=== PATIENT | female | born 1950 | race Hispanic/Latino ===

== ENCOUNTER 2022-05-24 08:24 | Inpatient (IN) | payer OTHER ==
[2022-05-24] MEDS ORDERED: SODIUM CHLORIDE 0.9% 1000 ML IV SOLN IV ONE (09:14)
[2022-05-24] MEDS ORDERED: VANCOMYCIN 1,750 MG in SODIUM CHLORIDE 0.9% 500 ML 500 ML IV ONE (09:17)
[2022-05-24] MEDS ORDERED: CEFEPIME/NS 2 GM/100 ML 2 GM/100 ML BAG IV ONE (09:17)
--- NOTE | 2022-05-24 09:43 | XRay Report ---
CHEST 1 VIEW 05/24/2022 8:37 AM INDICATION / CLINICAL INFORMATION: sepsis, syncope. COMPARISON: None available. FINDINGS: SUPPORT DEVICES: None. HEART / MEDIASTINUM: No significant abnormality. LUNGS / PLEURA: No significant pulmonary or pleural abnormality. No pneumothorax. ADDITIONAL FINDINGS: No significant additional findings. IMPRESSION: 1. No acute findings. Signer Name: Rafa Reaves Jr, MD Signed: 05/24/2022 9:38 AM Workstation Name: [id number]
[2022-05-24] MEDS ORDERED: VANCOMYCIN PHARMACY TO DOSE IV SCH ×2 (10:00→22:00)
[2022-05-24] MEDS ORDERED: VANCOMYCIN 2,000 MG in SODIUM CHLORIDE 0.9% 500 ML 500 ML IV ONE (10:00)
[2022-05-24 10:43] LABS: ABG Base Excess -10.3 mmol/L (-2.0-3.0); ABG HCO3 13.3 mmol/L (20.0-26.0); ABG Methemoglobin 0.5 % (0.0-1.5); ABG Oxygen Saturation 96.9 % (95.0-99.0); ABG PCO2 24.9 mm Hg; ABG PH 7.346 pH Units (7.350-7.450); ABG PO2 88.5 mm Hg (80.0-90.0)
[2022-05-24 11:33] LABS: Creatine Kinase MB 14.5 ng/mL (0.0-4.0)
[2022-05-24 11:34] LABS: Albumin 2.7 g/dL (3.9-5); Calcium 10.2 mg/dL (8.4-10.2)
[2022-05-24 11:37] LABS: Hematocrit 40.6 % (30.3-42.9); Hemoglobin 13.5 gm/dl (10.1-14.3); Mean Corpuscular HGB Conc 33 % (30-34); Mean Corpuscular Volume 98 fl (79-97); Platelet Count 187 K/mm3 (140-440); Red Blood Count 4.13 M/mm3 (3.65-5.03); Red Cell Distribution Width 13.6 % (13.2-15.2)
[2022-05-24 11:44] LABS: Free T4 (Free Thyroxine) 1.09 ng/dL (0.76-1.46)
[2022-05-24 11:45] LABS: INR 1.31 (0.87-1.13)
[2022-05-24] MEDS ORDERED: LORazepam 2 MG/ML VIAL IV ONE (12:16)
[2022-05-24 12:33] LABS: Band Neutrophils # (Manual) 0.2 K/mm3; Basophils % (Manual) 0 % (0.0-1.8); Total Cells Counted 100
[2022-05-24 12:34] LABS: Platelet Estimate Consistent w Auto
[2022-05-24 12:40] LABS: Color,Urine Yellow (Yellow)
[2022-05-24] MEDS ORDERED: SODIUM CHLORIDE 0.9% 1000 ML 1,000 ML IV ONE (13:27)
[2022-05-24 13:44] LABS: Amorphous Crystals,Urine 3+
--- NOTE | 2022-05-24 13:45 | Emergency Department Report ---
ED Altered Mental Status HPI - General Chief Complaint: Weakness Stated Complaint: LOW HR/FECAL INCONTINENCE Time Seen by Provider: 05/24/22 09:04 Source: patient, EMS Mode of arrival: Stretcher Limitations: Altered Mental Status - History of Present Illness Initial Comments: 72-year-old female with unknown past medical history presents from the residential with alteration in mental status. Patient was found soiled with feces, altered, and with low heart rate in the residential cell. Patient is altered and repeats the same thing when asked multiple questions. She is unwilling to follow commands. She appears to be having pain with movement. No previous medical record available for review - Related Data Allergies Allergy/AdvReac Type Severity Reaction Status Date / Time Sulfa (Sulfonamide AdvReac Unknown Verified 05/24/22 08:32 Antibiotics) ED Review of Systems ROS: Stated complaint: LOW HR/FECAL INCONTINENCE Other details as noted in HPI Comment: Unobtainable due to pts medical conditions ED Past Medical Hx - Past Medical History Additional medical history: UNKNOWN - Social History Smoking Status: Unknown if ever smoked ED Physical Exam - General Limitations: No Limitations - Other Other exam information: General: No acute distress Head: Atraumatic Eyes: normal appearance ENT: Moist mucous membranes Neck: Normal appearance, no midline tenderness Chest: Clear to auscultation bilaterally CV: Bradycardic regular rhythm Abdomen: Soft, normal bowel sounds, nontender, nondistended, no rebound or guarding Back: Normal inspection Extremity: Normal inspection, full range of motion Neuro: Altered, repeating the same thing when questioning. Does not follow commands. Psych: Agitation, altered Skin: Significant erythema to chest wall, redness, warmth involving bilateral breast ED Course Vital Signs 05/24/22 05/24/22 05/24/22 08:28 08:59 09:05 Temperature Pulse Rate 55 L Respiratory 20 15 Rate Blood Pressure Blood Pressure 130/90 [Left] O2 Sat by Pulse 80 L 92 Oximetry 05/24/22 05/24/22 05/24/22 09:15 09:31 09:46 Temperature Pulse Rate 54 L 47 L 52 L Respiratory 14 10 L 17 Rate Blood Pressure Blood Pressure [Left] O2 Sat by Pulse 96 99 100 Oximetry 05/24/22 05/24/22 05/24/22 09:57 10:00 10:16 Temperature 92.5 F L Pulse Rate 54 L 55 L Respiratory 17 15 Rate Blood Pressure 138/111 Blood Pressure [Left] O2 Sat by Pulse 94 87 Oximetry 05/24/22 05/24/22 05/24/22 10:30 10:46 11:00 Temperature Pulse Rate 55 L 58 L 57 L Respiratory 19 15 17 Rate Blood Pressure 123/106 123/106 123/106 Blood Pressure [Left] O2 Sat by Pulse 90 92 86 Oximetry 05/24/22 05/24/22 05/24/22 11:16 11:30 11:41 Temperature Pulse Rate 56 L 54 L Respiratory 21 13 Rate Blood Pressure 128/95 128/95 Blood Pressure 113/93 [Left] O2 Sat by Pulse 94 97 Oximetry 05/24/22 05/24/22 05/24/22 11:45 12:01 12:15 Temperature Pulse Rate 55 L 59 L 58 L Respiratory 15 12 17 Rate Blood Pressure 123/106 128/95 128/95 Blood Pressure [Left] O2 Sat by Pulse 98 96 94 Oximetry 05/24/22 05/24/22 05/24/22 12:31 12:45 13:01 Temperature Pulse Rate 61 53 L 63 Respiratory 18 21 21 Rate Blood Pressure 128/95 128/95 128/95 Blood Pressure [Left] O2 Sat by Pulse 93 97 97 Oximetry 05/24/22 05/24/22 05/24/22 13:08 13:15 13:31 Temperature 93.2 F L Pulse Rate 63 63 Respiratory 13 14 Rate Blood Pressure 128/95 128/95 Blood Pressure [Left] O2 Sat by Pulse 97 98 Oximetry 05/24/22 05/24/22 05/24/22 13:46 14:00 14:15 Temperature Pulse Rate 64 55 L 59 L Respiratory 13 19 Rate Blood Pressure 113/93 128/95 128/95 Blood Pressure [Left] O2 Sat by Pulse 98 97 Oximetry 05/24/22 14:31 Temperature Pulse Rate 58 L Respiratory 18 Rate Blood Pressure 113/93 Blood Pressure [Left] O2 Sat by Pulse 94 Oximetry - Consultations Consultation #1: 05/24/22 13:[address] May called, consult placed - Central Line Placement Right Femoral Consent Obtained: emergent situation Time Out Performed: Yes Patient Placed on Monitor/Pulse Ox: Yes Prep: mask, gown, gloves Central Line Prep: Chlorhexidine scrub Local Anesthesia Used: Lidocaine 1% Amount of Anesthesia Used (mls): 5 Central Line Lumen Inserted: triple Reason for Insertion: Emergency Venous Access Bloods Obtained for Lab: No Central Line Position: good blood return, sutured in place with nyl Dressing Applied: Tegaderm Patient Tolerated Procedure: no complications Complications: none - Lab Data Result diagrams: 05/24/22 09:05/24/22 09:26 Lab Results 05/24/22 05/24/22 05/24/22 Range/Units 09: 09: 09:26 WBC 21.4 H (4.5-11.0) K/mm3 RBC 4.13 (3.65-5.03) M/mm3 Hgb 13.5 (10.1-14.3) gm/dl Hct 40.6 (30.3-42.9) % MCV 98 H (79-97) fl MCH 33 H (28-32) pg MCHC 33 (30-34) % RDW 13.6 (13.2-15.2) % Plt Count 187 (140-440) K/mm3 Add Manual Diff Complete Total Counted 100 Seg Neutrophils % [employer] Seg Neuts % (Manual) 91.0 H (40.0-70.0) % Band Neutrophils % 1.0 % Lymphocytes % (Manual) 1.0 L (13.4-35.0) % Reactive Lymphs % (Man) 1.0 % Monocytes % (Manual) 5.0 (0.0-7.3) % Eosinophils % (Manual) 1.0 (0.0-4.3) % Basophils % (Manual) 0 (0.0-1.8) % Metamyelocytes % 0 % Myelocytes % 0 % Promyelocytes % 0 % Blast Cells % 0 % Nucleated RBC % Not Reportable Seg Neutrophils # Man 19.5 H (1.8-7.7) K/mm3 Band Neutrophils # 0.2 K/mm3 Lymphocytes # (Manual) 0.2 L (1.2-5.4) K/mm3 Abs React Lymphs (Man) 0.2 K/mm3 Monocytes # (Manual) 1.1 H (0.0-0.8) K/mm3 Eosinophils # (Manual) 0.2 (0.0-0.4) K/mm3 Basophils # (Manual) 0.0 (0.0-0.1) K/mm3 Metamyelocytes # 0.0 K/mm3 Myelocytes # 0.0 K/mm3 Promyelocytes # 0.0 K/mm3 Blast Cells # 0.0 K/mm3 WBC Morphology Not Reportable Hypersegmented Neuts Not Reportable Hyposegmented Neuts Not Reportable Hypogranular Neuts Not Reportable Smudge Cells Not Reportable Toxic Granulation Not Reportable Toxic Vacuolation Not Reportable Dohle Bodies Not Reportable Pelger-Huet Anomaly Not Reportable Raphael Rods Not Reportable Platelet Estimate Consistent w auto Clumped Platelets Not Reportable Plt Clumps, EDTA Not Reportable Large Platelets Not Reportable Giant Platelets Not Reportable Platelet Satelliting Not Reportable Plt Morphology Comment Not Reportable RBC Morphology Not Reportable Dimorphic RBCs Not Reportable Polychromasia Not Reportable Hypochromasia Not Reportable Poikilocytosis Not Reportable Anisocytosis Not Reportable Microcytosis Not Reportable Macrocytosis Not Reportable Spherocytes Not Reportable Pappenheimer Bodies Not Reportable Sickle Cells Not Reportable Target Cells Not Reportable Tear Drop Cells Not Reportable Ovalocytes Not Reportable Helmet Cells Not Reportable [place] Bodies Not Reportable [place] Rings Not Reportable [place] Cells Not Reportable Bite Cells Not Reportable Crenated Cell Not Reportable Elliptocytes Not Reportable Acanthocytes (Spur) Not Reportable Rouleaux Not Reportable Hemoglobin C Crystals Not Reportable Schistocytes Not Reportable Malaria parasites Not Reportable Jerad Bodies Not Reportable Hem Pathologist Commnt No PT (12.2-14.9) Sec. INR (0.87-1.13) APTT (24.2-36.6) Sec. ABG pH (7.350-7.450) pH Units ABG pCO2 mm Hg ABG pO2 (80.0-90.0) mm Hg ABG HCO3 (20.0-26.0) mmol/L ABG O2 Saturation (95.0-99.0) % ABG O2 Content (0.0-44) ABG Base Excess (-2.0-3.0) mmol/L ABG Hemoglobin (12.0-16.0) gm/dl ABG Carboxyhemoglobin (0.0-5.0) % ABG Methemoglobin (0.0-1.5) % Oxyhemoglobin (95.0-99.0) % FiO2 % Sodium 135 L (137-145) mmol/L Potassium 4.9 (3.6-5.0) mmol/L Chloride 99.7 (98-107) mmol/L Carbon Dioxide 15 L (22-30) mmol/L Anion Gap 25 mmol/L BUN 151 H (7-17) mg/dL Creatinine 4.8 H (0.6-1.2) mg/dL Estimated GFR 9 ml/min BUN/Creatinine Ratio 31 % Glucose 109 H (65-100) mg/dL POC Glucose (70-105) mg/dL Lactic Acid 2.20 H* (0.7-2.0) mmol/L Calcium 10.2 (8.4-10.2) mg/dL Total Bilirubin 0.50 (0.1-1.2) mg/dL AST 58 H (5-40) units/L ALT 38 (7-56) units/L Alkaline Phosphatase 189 H (35-129) units/L Total Creatine Kinase 313 H (30-135) units/L CK-MB (CK-2) 14.5 H (0.0-4.0) ng/mL CK-MB (CK-2) Rel Index 4.6 H (0-4) NT-Pro-B Natriuret Pep 773.1 (0-900) pg/mL Total Protein 6.3 (6.3-8.2) g/dL Albumin 2.7 L (3.9-5) g/dL Albumin/Globulin Ratio 0.8 % TSH (0.270-4.200) mlU/mL Free T4 (0.76-1.46) ng/dL Urine Color (Yellow) Urine Turbidity (Clear) Specific Coello (Man) (1.003-1.030) Ur Protein (Man) (Negative) mg/dL Ur Ketones (Man) (Negative) Ur Nitrite (Man) (Negative) Urine Bilirubin (Man) (Negative) Leukocyte Esterase (Man) (Negative) Urine WBC (Auto) (0.0-6.0) /HPF Urine RBC (Auto) (0.0-6.0) /HPF U Epithel Cells (Auto) (0-13.0) /HPF Urine RBC (Manual) (Negative) Amorphous Crystals 05/24/22 05/24/22 05/24/22 Range/Units 09:26 09:26 09:34 WBC (4.5-11.0) K/mm3 RBC (3.65-5.03) M/mm3 Hgb (10.1-14.3) gm/dl Hct (30.3-42.9) % MCV (79-97) fl MCH (28-32) pg MCHC (30-34) % RDW (13.2-15.2) % Plt Count (140-440) K/mm3 Add Manual Diff Total Counted Seg Neutrophils % Seg Neuts % (Manual) (40.0-70.0) % Band Neutrophils % % Lymphocytes % (Manual) (13.4-35.0) % Reactive Lymphs % (Man) % Monocytes % (Manual) (0.0-7.3) % Eosinophils % (Manual) (0.0-4.3) % Basophils % (Manual) (0.0-1.8) % Metamyelocytes % % Myelocytes % % Promyelocytes % % Blast Cells % % Nucleated RBC % Seg Neutrophils # Man (1.8-7.7) K/mm3 Band Neutrophils # K/mm3 Lymphocytes # (Manual) (1.2-5.4) K/mm3 Abs React Lymphs (Man) K/mm3 Monocytes # (Manual) (0.0-0.8) K/mm3 Eosinophils # (Manual) (0.0-0.4) K/mm3 Basophils # (Manual) (0.0-0.1) K/mm3 Metamyelocytes # K/mm3 Myelocytes # K/mm3 Promyelocytes # K/mm3 Blast Cells # K/mm3 WBC Morphology Hypersegmented Neuts Hyposegmented Neuts Hypogranular Neuts Smudge Cells Toxic Granulation Toxic Vacuolation Dohle Bodies Pelger-Huet Anomaly Raphael Rods Platelet Estimate Clumped Platelets Plt Clumps, EDTA Large Platelets Giant Platelets Platelet Satelliting Plt Morphology Comment RBC Morphology Dimorphic RBCs Polychromasia Hypochromasia Poikilocytosis Anisocytosis Microcytosis Macrocytosis Spherocytes Pappenheimer Bodies Sickle Cells Target Cells Tear Drop Cells Ovalocytes Helmet Cells [place] Bodies [place] Rings [place] Cells Bite Cells Crenated Cell Elliptocytes Acanthocytes (Spur) Rouleaux Hemoglobin C Crystals Schistocytes Malaria parasites Jerad Bodies Hem Pathologist Commnt PT 17.8 H (12.2-14.9) Sec. INR 1.31 H (0.87-1.13) APTT 38.0 H (24.2-36.6) Sec. ABG pH (7.350-7.450) pH Units ABG pCO2 mm Hg ABG pO2 (80.0-90.0) mm Hg ABG HCO3 (20.0-26.0) mmol/L ABG O2 Saturation (95.0-99.0) % ABG O2 Content (0.0-44) ABG Base Excess (-2.0-3.0) mmol/L ABG Hemoglobin (12.0-16.0) gm/dl ABG Carboxyhemoglobin (0.0-5.0) % ABG Methemoglobin (0.0-1.5) % Oxyhemoglobin (95.0-99.0) % FiO2 % Sodium (137-145) mmol/L Potassium (3.6-5.0) mmol/L Chloride (98-107) mmol/L Carbon Dioxide (22-30) mmol/L Anion Gap mmol/L BUN (7-17) mg/dL Creatinine (0.6-1.2) mg/dL Estimated GFR ml/min BUN/Creatinine Ratio % Glucose (65-100) mg/dL POC Glucose 115 H (70-105) mg/dL Lactic Acid (0.7-2.0) mmol/L Calcium (8.4-10.2) mg/dL Total Bilirubin (0.1-1.2) mg/dL AST (5-40) units/L ALT (7-56) units/L Alkaline Phosphatase (35-129) units/L Total Creatine Kinase (30-135) units/L CK-MB (CK-2) (0.0-4.0) ng/mL CK-MB (CK-2) Rel Index (0-4) NT-Pro-B Natriuret Pep (0-900) pg/mL Total Protein (6.3-8.2) g/dL Albumin (3.9-5) g/dL Albumin/Globulin Ratio % TSH 2.860 (0.270-4.200) mlU/mL Free T4 1.09 (0.76-1.46) ng/dL Urine Color (Yellow) Urine Turbidity (Clear) Specific [place] (Man) (1.003-1.030) Ur Protein (Man) (Negative) mg/dL Ur Ketones (Man) (Negative) Ur Nitrite (Man) (Negative) Urine Bilirubin (Man) (Negative) Leukocyte Esterase (Man) (Negative) Urine WBC (Auto) (0.0-6.0) /HPF Urine RBC (Auto) (0.0-6.0) /HPF U Epithel Cells (Auto) (0-13.0) /HPF Urine RBC (Manual) (Negative) Amorphous Crystals 05/24/22 05/24/22 05/24/22 Range/Units 10:25 10:48 11:51 WBC (4.5-11.0) K/mm3 RBC (3.65-5.03) M/mm3 Hgb (10.1-14.3) gm/dl Hct (30.3-42.9) % MCV (79-97) fl MCH (28-32) pg MCHC (30-34) % RDW (13.2-15.2) % Plt Count (140-440) K/mm3 Add Manual Diff Total Counted Seg Neutrophils % Seg Neuts % (Manual) (40.0-70.0) % Band Neutrophils % % Lymphocytes % (Manual) (13.4-35.0) % Reactive Lymphs % (Man) % Monocytes % (Manual) (0.0-7.3) % Eosinophils % (Manual) (0.0-4.3) % Basophils % (Manual) (0.0-1.8) % Metamyelocytes % % Myelocytes % % Promyelocytes % % Blast Cells % % Nucleated RBC % Seg Neutrophils # Man (1.8-7.7) K/mm3 Band Neutrophils # K/mm3 Lymphocytes # (Manual) (1.2-5.4) K/mm3 Abs React Lymphs (Man) K/mm3 Monocytes # (Manual) (0.0-0.8) K/mm3 Eosinophils # (Manual) (0.0-0.4) K/mm3 Basophils # (Manual) (0.0-0.1) K/mm3 Metamyelocytes # K/mm3 Myelocytes # K/mm3 Promyelocytes # K/mm3 Blast Cells # K/mm3 WBC Morphology Hypersegmented Neuts Hyposegmented Neuts Hypogranular Neuts Smudge Cells Toxic Granulation Toxic Vacuolation Dohle Bodies Pelger-Huet Anomaly Raphael Rods Platelet Estimate Clumped Platelets Plt Clumps, EDTA Large Platelets Giant Platelets Platelet Satelliting Plt Morphology Comment RBC Morphology Dimorphic RBCs Polychromasia Hypochromasia Poikilocytosis Anisocytosis Microcytosis Macrocytosis Spherocytes Pappenheimer Bodies Sickle Cells Target Cells Tear Drop Cells Ovalocytes Helmet Cells [place] Bodies [place] Rings Neftali Cells Bite Cells Crenated Cell Elliptocytes Acanthocytes (Spur) Rouleaux Hemoglobin C Crystals Schistocytes Malaria parasites Jerad Bodies Hem Pathologist Commnt PT (12.2-14.9) Sec. INR (0.87-1.13) APTT (24.2-36.6) Sec. ABG pH 7.346 L (7.350-7.450) pH Units ABG pCO2 24.9 mm Hg ABG pO2 88.5 (80.0-90.0) mm Hg ABG HCO3 13.3 L (20.0-26.0) mmol/L ABG O2 Saturation 96.9 (95.0-99.0) % ABG O2 Content 20.1 (0.0-44) ABG Base Excess -10.3 L (-2.0-3.0) mmol/L ABG Hemoglobin 15.0 (12.0-16.0) gm/dl ABG Carboxyhemoglobin 1.1 (0.0-5.0) % ABG Methemoglobin 0.5 (0.0-1.5) % Oxyhemoglobin 95.3 (95.0-99.0) % FiO2 21 % Sodium (137-145) mmol/L Potassium (3.6-5.0) mmol/L Chloride (98-107) mmol/L Carbon Dioxide (22-30) mmol/L Anion Gap mmol/L BUN (7-17) mg/dL Creatinine (0.6-1.2) mg/dL Estimated GFR ml/min BUN/Creatinine Ratio % Glucose (65-100) mg/dL POC Glucose (70-105) mg/dL Lactic Acid 1.70 (0.7-2.0) mmol/L Calcium (8.4-10.2) mg/dL Total Bilirubin (0.1-1.2) mg/dL AST (5-40) units/L ALT (7-56) units/L Alkaline Phosphatase (35-129) units/L Total Creatine Kinase (30-135) units/L CK-MB (CK-2) (0.0-4.0) ng/mL CK-MB (CK-2) Rel Index (0-4) NT-Pro-B Natriuret Pep (0-900) pg/mL Total Protein (6.3-8.2) g/dL Albumin (3.9-5) g/dL Albumin/Globulin Ratio % TSH (0.270-4.200) mlU/mL Free T4 (0.76-1.46) ng/dL Urine Color Yellow (Yellow) Urine Turbidity Slightly cloudy (Clear) Specific [place] (Man) 1.015 (1.003-1.030) Ur Protein (Man) 1+ (Negative) mg/dL Ur Ketones (Man) Negative (Negative) Ur Nitrite (Man) Negative (Negative) Urine Bilirubin (Man) Negative (Negative) Leukocyte Esterase (Man) 3+ (Negative) Urine WBC (Auto) 25.0 H (0.0-6.0) /HPF Urine RBC (Auto) 10.0 (0.0-6.0) /HPF U Epithel Cells (Auto) 100.0 H (0-13.0) /HPF Urine RBC (Manual) 3+ (Negative) Amorphous Crystals 3+ - EKG Data -: EKG Interpreted by Ia EKG shows normal: sinus rhythm (with a lot of artivact but there is a p wave before qrs and regular rhythm), ST-T waves (no stemi) Rate: normal (71) When compared to previous EKG there are: previous EKG unavailable - Radiology Data Radiology results: report reviewed CHEST 1 VIEW 05/24/2022 8:37 AM INDICATION / CLINICAL INFORMATION: sepsis, syncope. COMPARISON: None available. FINDINGS: SUPPORT DEVICES: None. HEART / MEDIASTINUM: No significant abnormality. LUNGS / PLEURA: No significant pulmonary or pleural abnormality. No pn eumothorax. ADDITIONAL FINDINGS: No significant additional findings. IMPRESSION: 1. No acute findings. CT head/brain wo con INDICATION / CLINICAL INFORMATION: 72 years Female; synco pe,ams. TECHNIQUE: Routine CT head without contrast. All CT scans at this location are performed using CT dose reduction for ALARA by means of automated exposure control. COMPARISON: None. FINDINGS: BRAIN / INTRACRANIAL CONTENTS: The motion and positioning degrade the image quality. 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 The relative decreased attenuation projected along the posterior, inferior right cerebellum may be related to the degree of motion and beam hardening artifact though correlation would be needed in this patient with history of "syncope". There is mild cerebral atrophy with associated prominence of the ventricular system. There is no clear CT evidence of acute intracranial hemorrhage or significant mass effect. ORBITS: No significant abnormality of visualized orbits. SINUSES / MASTOIDS: No significant abnormality in the visualized paranasal sinuses or mastoid air cells. CRANIOCERVICAL JUNCTION: No significant abnormality. ADDITIONAL FINDINGS: None. IMPRESSION: 1. The study is limited by motion. However, there is microvascular angiopathy along with relative decreased attenuation along the posterior cerebellum as detailed above. There is no clear CT evidence of acute intracranial hemorrhage. CT cervical spine wo con INDICATION / CLINICAL INFORMATION: 72 years Female; found down on floor, [facility]. TECHNIQUE: Axial CT images of the cervical spine were obtained. Sagittal and coronal reformatted images were produced. All CT scans at this location are performed using CT dose reduction for ALARA by means of automated exposure control. COMPARISON: None available. FINDINGS: POST- SURGICAL CHANGES: None. ALIGNMENT: No significant abnormality. VERTEBRAE: No signs of fracture. Vertebral bodies are grossly normal in height throughout. Osseous foraminal narrowing seen on the left from C3-4 through C6-7, related uncinate and facet hypertrophy. Similar findings seen on the right at C5-6 and C6-7. Mild to moderate facet hypertrophy seen at multiple levels. Most marked findings on the left at C2-3 and C3-4. INTRAVERTEBRAL DISCS: Disc space narrowing seen at C4-5, C5-6, C6-7. Disc disease seen at multiple levels from C3-4 through C6-7. Mild canal narrowing seen at C4-5, C5-6, C6-7. No definitive signs of cord impingement. PARASPINAL SOFT TISSUES: No significant abnormality. ADDITIONAL FINDINGS: Minimal scarring type changes seen in the lung apices. IMPRESSION: 1. No signs of acute bony trauma to the cervical spine. CT CHEST, ABDOMEN, AND PELVIS WITH CONTRAST INDICATION / CLINICAL INFORMATION: chest wall infection. Elevated liver function tests TECHNIQUE: Axial CT images were obtained through the chest, abdomen, and pelvis after IV contrast. All CT scans at this location are performed using CT dose reduction for ALARA by means of automated exposure control. COMPARISON: None available. FINDINGS: Exam is limited secondary to patient's inability to raise arms. HEART: No significant abnormality. CORONARY ARTERY CALCIFICATION: Present -- Moderate. THORACIC AORTA: Moderate atherosclerotic calcification without acute abnormality. MEDIASTINUM / SONA: No significant abnormality. PLEURA: No pleural effusion. No pneumothorax. LUNGS: Respiratory motion limits attenuation of the pulmonary parenchyma. Biapical pleural-parenchymal scarring. Bibasilar dependent consolidations. Mosaic attenuation of the right upper lobe. ADDITIONAL CHEST FINDINGS: No identifiable chest wall infection; however, several portions of the chest wall are not included in the [id number] secondary to patient body habitus. LIVER: No significant abnormality. GALLBLADDER: No significant abnormality. BILE DUCTS: No significant abnormality. PANCREAS: Faint peripancreatic fat stranding. SPLEEN: No significant abnormality. ADRENALS: No significant abnormality. RIGHT KIDNEY / URETER: No significant abnormality. LEFT KIDNEY / URETER: No significant abnormality. STOMACH and SMALL BOWEL: Small hiatal hernia. Small bowel is normal in caliber. COLON: No significant abnormality. APPENDIX: No significant abnormality. PERITONEUM: No free fluid. No free air. No fluid collection. LYMPH NODES: No significant adenopathy. AORTA / ARTERIES: No significant abnormality. IVC / VEINS: No significant abnormality. URINARY BLADDER: Contracted around a Sweeney catheter. REPRODUCTIVE ORGANS: Endometrial cavity appears prominent in size. ADDITIONAL FINDINGS: None. SKELETAL SYSTEM: Acute left anterior second through fifth rib fractures. Age-indeterminate but likely chronic right anterior third and fourth rib fractures. Age-indeterminate compression deformity of T7. IMPRESSION: 1. No identifiable chest wall infection; however, several portions of the chest wall are not included in the [id number] secondary to patient body habitus. 2. Bibasilar dependent consolidations, likely atelectasis. An element of aspiration is not excluded. Mosaic attenuation of the right upper lobe may be infectious or inflammatory. 3. Acute left second through fifth rib fractures. Age-indeterminate but likely chronic anterior right third and fourth rib fractures. 4. Age-indeterminate compression deformity of T7. Recommend correlation with point tenderness. 5. Faint peripancreatic fat stranding. Recommend correlation with serum lipase. 6. Endometrial cavity appears prominent in size. Recommend correlation with nonemergent/outpatient pelvic ultrasound. - Medical Decision Making 72-year-old female presents to the hospital with alteration in mental status after being found down in his cell at the residential. Physical exam reveals chest wall cellulitis with laboratory and vital sign findings significant for sepsis. Active warming was initiated for hypothermia. Patient provided cefepime and Vanco. Labs also reveal severe dehydration with acute renal insufficiency. Sweeney catheter and IV fluids (30 mL/kg bolus) initiated. Patient required IV Ativan in order to obtain scans due to significant agitation. Right femoral central line was placed due to lack of secondary peripheral access. CT imaging significant for acute chest wall fractures. Due to patient's alteration in mental status I am unable to obtain any other history of present illness or past medical history. [facility] officers are not able to provide any past medical history as well. Case has been discussed with the hospitalist for admission with nephrology consultation Critical Care Time: Yes Critical care time in (mins) excluding proc time.: 65 Critical care attestation.: If time is entered above; I have spent that time in minutes in the direct care of this critically ill patient, excluding procedure time. Critical Care Time: 65 Minutes of critical care time excluding procedures were used in the care of the patient. I came immediately to the bedside upon patient's arrival. I obtained history from EMS at the bedside. I discussed treatment plan with the nursing team members. I reviewed electronic record. Patient required multiple interventions and reassessments. ED Disposition Clinical Impression: Sepsis, Acute renal failure (ARF), UTI (urinary tract infection), Altered mental status, Cellulitis of chest wall, Multiple rib fractures, Hypothermia Disposition: ADMITTED INPATIENT Is pt being admited?: Yes Condition: Stable Time of Disposition: 14:45 (DR delgadillo/hosptialist)
--- NOTE | 2022-05-24 14:16 | Cat Scan Report ---
CT head/brain wo con INDICATION / CLINICAL INFORMATION: 72 years Female; syncope,ams. TECHNIQUE: Routine CT head without contrast. All CT scans at this location are performed using CT dos e reduction for ALARA by means of automated exposure control. COMPARISON: None. FINDINGS: BRAIN / INTRACRANIAL CONTENTS: The motion and positioning degrade the image quality. 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 The relative de creased attenuation projected along the posterior, inferior right cerebellum may be related to the de gree of motion and beam hardening artifact though correlation would be needed in this patient with hi story of "syncope". There is mild cerebral atrophy with associated prominence of the ventricular syst em. There is no clear CT evidence of acute intracranial hemorrhage or significant mass effect. ORBITS: No significant abnormality of visualized orbits. SINUSES / MASTOIDS: No significant abnormality in the visualized paranasal sinuses or mastoid air kana ls. CRANIOCERVICAL JUNCTION: No significant abnormality. ADDITIONAL FINDINGS: None. IMPRESSION: 1. The study is limited by motion. However, there is microvascular angiopathy along with relative dec reased attenuation along the posterior cerebellum as detailed above. There is no clear CT evidence of acute intracranial hemorrhage. Signer Name: Jan Sanchez MD Signed: 05/24/2022 2:12 PM Workstation Name: [id number]
--- NOTE | 2022-05-24 14:19 | Cat Scan Report ---
CT cervical spine wo con INDICATION / CLINICAL INFORMATION: 72 years Female; found down on floor, [facility]. TECHNIQUE: Axial CT images of the cervical spine were obtained. Sagittal and coronal reformatted images were pr oduced. All CT scans at this location are performed using CT dose reduction for ALARA by means of aut omated exposure control. COMPARISON: None available. FINDINGS: POST-SURGICAL CHANGES: None. ALIGNMENT: No significant abnormality. VERTEBRAE: No signs of fracture. Vertebral bodies are grossly normal in height throughout. Osseous foraminal narrowing seen on the left from C3-4 through C6-7, related uncinate and facet hyper trophy. Similar findings seen on the right at C5-6 and C6-7. Mild to moderate facet hypertrophy seen at multiple levels. Most marked findings on the left at C2-3 and C3-4. INTRAVERTEBRAL DISCS: Disc space narrowing seen at C4-5, C5-6, C6-7. Disc disease seen at multiple levels from C3-4 through C6-7. Mild canal narrowing seen at C4-5, C5-6, C6-7. No definitive signs of cord impingement. PARASPINAL SOFT TISSUES: No significant abnormality. ADDITIONAL FINDINGS: Minimal scarring type changes seen in the lung apices. IMPRESSION: 1. No signs of acute bony trauma to the cervical spine. Signer Name: Nirav Huggins MD, III Signed: 05/24/2022 2:15 PM Workstation Name: [email or web address]
--- NOTE | 2022-05-24 14:35 | Cat Scan Report ---
CT CHEST, ABDOMEN, AND PELVIS WITH CONTRAST INDICATION / CLINICAL INFORMATION: chest wall infection. Elevated liver function tests TECHNIQUE: Axial CT images were obtained through the chest, abdomen, and pelvis after IV contrast. Al l CT scans at this location are performed using CT dose reduction for ALARA by means of automated exp osure control. COMPARISON: None available. FINDINGS: Exam is limited secondary to patient's inability to raise arms. HEART: No significant abnormality. CORONARY ARTERY CALCIFICATION: Present -- Moderate. THORACIC AORTA: Moderate atherosclerotic calcification without acute abnormality. MEDIASTINUM / SONA: No significant abnormality. PLEURA: No pleural effusion. No pneumothorax. LUNGS: Respiratory motion limits attenuation of the pulmonary parenchyma. Biapical pleural-parenchyma l scarring. Bibasilar dependent consolidations. Mosaic attenuation of the right upper lobe. ADDITIONAL CHEST FINDINGS: No identifiable chest wall infection; however, several portions of the geovanny st wall are not included in the wctzz-aw-[id number] secondary to patient body habitus. LIVER: No significant abnormality. GALLBLADDER: No significant abnormality. BILE DUCTS: No significant abnormality. PANCREAS: Faint peripancreatic fat stranding. SPLEEN: No significant abnormality. ADRENALS: No significant abnormality. RIGHT KIDNEY / URETER: No significant abnormality. LEFT KIDNEY / URETER: No significant abnormality. STOMACH and SMALL BOWEL: Small hiatal hernia. Small bowel is normal in caliber. COLON: No significant abnormality. APPENDIX: No significant abnormality. PERITONEUM: No free fluid. No free air. No fluid collection. LYMPH NODES: No significant adenopathy. AORTA / ARTERIES: No significant abnormality. IVC / VEINS: No significant abnormality. URINARY BLADDER: Contracted around a Sweeney catheter. REPRODUCTIVE ORGANS: Endometrial cavity appears prominent in size. ADDITIONAL FINDINGS: None. SKELETAL SYSTEM: Acute left anterior second through fifth rib fractures. Age-indeterminate but likely chronic right anterior third and fourth rib fractures. Age-indeterminate compression deformity of T7 . IMPRESSION: 1. No identifiable chest wall infection; however, several portions of the chest wall are not included in the [id number]-bc-[id number] secondary to patient body habitus. 2. Bibasilar dependent consolidations, likely atelectasis. An element of aspiration is not excluded. Mosaic attenuation of the right upper lobe may be infectious or inflammatory. 3. Acute left second through fifth rib fractures. Age-indeterminate but likely chronic anterior right third and fourth rib fractures. 4. Age-indeterminate compression deformity of T7. Recommend correlation with point tenderness. 5. Faint peripancreatic fat stranding. Recommend correlation with serum lipase. 6. Endometrial cavity appears prominent in size. Recommend correlation with nonemergent/outpatient pe lvic ultrasound. Signer Name: Iglesia Gold MD Signed: 05/24/2022 2:31 PM Workstation Name: [id number]
[2022-05-24] MEDS ORDERED: MORPHINE 2 MG/1 ML INJ IV PRN (14:47)
[2022-05-24] MEDS ORDERED: ACETAMINOPHEN 650 MG RECT SUPP PR PRN (14:47)
--- NOTE | 2022-05-24 16:08 | Consultation ---
History of Present Illness - Reason for Consult Consult date: 05/24/22 - History of Present Illness This is a 72 year old female who was brought to the E.R from [facility] for AMS. Patient seen in E.R and is confused. Pertinent labs in E.R revealed an elevated BUN level of 151 and serum creatinine of 4.8. Baseline serum creatinine unknown. Patient has history of Gout and Hypertension. We are being consulted for management of this patient's Severe Renal failure. Past History Past Medical History: hypertension, other (Gout) Social history: other (resides in assisted) Medications and Allergies Allergies Allergy/AdvReac Type Severity Reaction Status Date / Time Sulfa (Sulfonamide AdvReac Unknown Verified 05/24/22 08:32 Antibiotics) Active Meds: Active Medications Acetaminophen (Acetaminophen 650 Mg Rect Supp) 650 mg SC Q6H PRN PRN Reason: Pain MILD(1-3)/Fever >100.5/KEVIN Morphine Sulfate (Morphine 2 Mg/1 Ml Inj) 2 mg IV Q4H PRN PRN Reason: Pain, Moderate (4-6) Sodium Chloride (Sodium Chloride 0.9% 10 Ml Flush Syringe) 10 ml IV BID MADAN Sodium Chloride (Sodium Chloride 0.9% 10 Ml Flush Syringe) 10 ml IV PRN PRN PRN Reason: LINE FLUSH Review of Systems ROS unobtainable: due to mental status Exam - Vital Signs Vital signs: Vital Signs Pulse BP Pulse Ox 55 L 130/90 80 L 05/24/22 08:28 05/24/22 08:28 05/24/22 08:28 - General Appearance General appearance: other (Awake but confused) EENT: ATNC Neck: Present: neck supple Respiratory: Decreased Breath Sounds Heart: S1S2 Gastrointestinal: Present: normoactive bowel sounds Integumentary: warm and dry Neurologic: other (Confused) Musculoskeletal: Present: other (mild edema to BLE) Results - Lab Results 05/24/22 09:26 05/24/22 09:26 Most recent lab results ABG pH 7.346 pH Units (7.350-7.450) L 05/24/22 10:25 ABG pCO2 24.9 mm Hg 05/24/22 10:25 ABG pO2 88.5 mm Hg (80.0-90.0) 05/24/22 10:25 ABG HCO3 13.3 mmol/L (20.0-26.0) L 05/24/22 10:25 ABG O2 Saturation 96.9 % (95.0-99.0) 05/24/22 10:25 Calcium 10.2 mg/dL (8.4-10.2) 05/24/22 09:26 Assessment and Plan Assessment: Severe Renal Failure secondary to prerenal Etiology vs ATN vs advanced CKD Hypertension AMS Plan: Renal labs reviewed. Serum creatinine 4.8 and BUN 151 on admission, patient has received IVF boluses Baseline serum creatinine unknown, has Hypertension so could have advanced CKD Will obtain renal ultrasound to rule out obstruction Obtain urine lytes, protein and eosinophils Obtain daily weights Monitor I/O's daily Given AMS with severe renal failure, patient is likely Uremic, I have spoken with the Alf doctor, Dr. Thomas who has consented to patient to receive hemodialysis and for vasc cath placement. Will consult IR for vasc cath placement and urgently hemodialyze patient today and will likely need HD tomorrow as well. Plan of care reviewed by Dr. Singh
--- NOTE | 2022-05-24 17:46 | History and Physical Report ---
History of Present Illness Date of examination: 05/24/22 Date of admission: 05/24/2022 Chief complaint: -Reviewed and redness on the chest History of present illness: 72-year-old female with past medical history of hypertension comes in for altered mental status from fdc. Patient wears found soiled with feces altered sensorium and low heart rate. Patient has stated severe erythema on lower anterior chest. Probable history of trauma in the fdc because of rib fra ctures. High fever. No nausea no vomiting. No cough. No dysuria. - Past Medical History Additional medical history: UNKNOWN past surgical history and family history Unavailable - Social History Smoking Status: Unknown if ever smoked Review of Systems ROS: Stated complaint: LOW HR/FECAL INCONTINENCE Other details as noted in HPI Altered sensorium Comment: Unobtainable due to pts medical conditions Past History Past Medical History: hypertension, other (Gout) Social history: other (resides in fdc) Medications and Allergies Allergies Allergy/AdvReac Type Severity Reaction Status Date / Time Sulfa (Sulfonamide AdvReac Unknown Verified 05/24/22 08:32 Antibiotics) Active Meds: Active Medications Acetaminophen (Acetaminophen 650 Mg Rect Supp) 650 mg AL Q6H PRN PRN Reason: Pain MILD(1-3)/Fever >100.5/KEVIN Morphine Sulfate (Morphine 2 Mg/1 Ml Inj) 2 mg IV Q4H PRN PRN Reason: Pain, Moderate (4-6) Sodium Chloride (Sodium Chloride 0.9% 10 Ml Flush Syringe) 10 ml IV BID MADAN Sodium Chloride (Sodium Chloride 0.9% 10 Ml Flush Syringe) 10 ml IV PRN PRN PRN Reason: LINE FLUSH Exam - Constitutional Vitals: Temp Pulse Resp BP Pulse Ox 94.4 F L 67 28 H 113/93 95 05/24/22 16:08 05/24/22 16:31 05/24/22 16:31 05/24/22 16:31 05/24/22 16:31 General appearance: Present: mild distress, well-nourished - EENT Eyes: Present: PERRL ENT: hearing intact, clear oral mucosa - Neck Neck: Present: supple, normal ROM - Respiratory Respiratory effort: normal Respiratory: bilateral: CTA Details: Erythema on the anterior chest wall involving both the breasts - Cardiovascular Heart rate: 110 Rhythm: regular Heart Sounds: Present: S1 & S2. Absent: rub, click - Extremities Extremities: pulses symmetrical, No edema Peripheral Pulses: within normal limits - Abdominal General gastrointestinal: Present: soft, non-tender, non-distended, normal bowel sounds Female genitourinary: Present: normal - Integumentary Integumentary: Present: clear, warm, dry - Musculoskeletal Musculoskeletal: generalized weakness - Psychiatric Psychiatric: other (Altered sensorium) - Neurologic Neurologic: moves all extremities, other - Allied Health Allied health notes reviewed: nursing, case management HEART Score - HEART Score Troponin: Troponin T < 0.010 ng/mL (0.00-0.029) 05/24/22 14:55 Results - Labs CBC & Chem 7: 05/25/22 04:00 05/25/22 04:00 Labs: Laboratory Last Values WBC 21.4 K/mm3 (4.5-11.0) H 05/24/22 09:26 RBC 4.13 M/mm3 (3.65-5.03) 05/24/22 09:26 Hgb 13.5 gm/dl (10.1-14.3) 05/24/22 09:26 Hct 40.6 % (30.3-42.9) 05/24/22 09:26 MCV 98 fl (79-97) H 05/24/22 09:26 MCH 33 pg (28-32) H 05/24/22 09:26 MCHC 33 % (30-34) 05/24/22 09:26 RDW 13.6 % (13.2-15.2) 05/24/22 09:26 Plt Count 187 K/mm3 (140-440) 05/24/22 09:26 Add Manual Diff Complete 05/24/22 09:26 Total Counted 100 05/24/22 09:26 Seg Neutrophils % Tool [employer] Attendant 05/24/22 09:26 Seg Neuts % (Manual) 91.0 % (40.0-70.0) H 05/24/22 09:26 Band Neutrophils % 1.0 % 05/24/22 09:26 Lymphocytes % (Manual) 1.0 % (13.4-35.0) L 05/24/22 09:26 Reactive Lymphs % (Man) 1.0 % 05/24/22 09:26 Monocytes % (Manual) 5.0 % (0.0-7.3) 05/24/22 09:26 Eosinophils % (Manual) 1.0 % (0.0-4.3) 05/24/22 09:26 Basophils % (Manual) 0 % (0.0-1.8) 05/24/22 09:26 Metamyelocytes % 0 % 05/24/22 09:26 Myelocytes % 0 % 05/24/22 09:26 Promyelocytes % 0 % 05/24/22 09:26 Blast Cells % 0 % 05/24/22 09:26 Nucleated RBC % Not Reportable 05/24/22 09:26 Seg Neutrophils # Man 19.5 K/mm3 (1.8-7.7) H 05/24/22 09:26 Band Neutrophils # 0.2 K/mm3 05/24/22 09:26 Lymphocytes # (Manual) 0.2 K/mm3 (1.2-5.4) L 05/24/22 09:26 Abs React Lymphs (Man) 0.2 K/mm3 05/24/22 09:26 Monocytes # (Manual) 1.1 K/mm3 (0.0-0.8) H 05/24/22 09:26 Eosinophils # (Manual) 0.2 K/mm3 (0.0-0.4) 05/24/22 09:26 Basophils # (Manual) 0.0 K/mm3 (0.0-0.1) 05/24/22 09:26 Metamyelocytes # 0.0 K/mm3 05/24/22 09:26 Myelocytes # 0.0 K/mm3 05/24/22 09:26 Promyelocytes # 0.0 K/mm3 05/24/22 09:26 Blast Cells # 0.0 K/mm3 05/24/22 09:26 WBC Morphology Not Reportable 05/24/22 09:26 Hypersegmented Neuts Not Reportable 05/24/22 09:26 Hyposegmented Neuts Not Reportable 05/24/22 09:26 Hypogranular Neuts Not Reportable 05/24/22 09:26 Smudge Cells Not Reportable 05/24/22 09:26 Toxic Granulation Not Reportable 05/24/22 09:26 Toxic Vacuolation Not Reportable 05/24/22 09:26 Dohle Bodies Not Reportable 05/24/22 09:26 Pelger-Huet Anomaly Not Reportable 05/24/22 09:26 Raphael Rods Not Reportable 05/24/22 09:26 Platelet Estimate Consistent w auto 05/24/22 09:26 Clumped Platelets Not Reportable 05/24/22 09:26 Plt Clumps, EDTA Not Reportable 05/24/22 09:26 Large Platelets Not Reportable 05/24/22 09:26 Giant Platelets Not Reportable 05/24/22 09:26 Platelet Satelliting Not Reportable 05/24/22 09:26 Plt Morphology Comment Not Reportable 05/24/22 09:26 RBC Morphology Not Reportable 05/24/22 09:26 Dimorphic RBCs Not Reportable 05/24/22 09:26 Polychromasia Not Reportable 05/24/22 09:26 Hypochromasia Not Reportable 05/24/22 09:26 Poikilocytosis Not Reportable 05/24/22 09:26 Anisocytosis Not Reportable 05/24/22 09:26 Microcytosis Not Reportable 05/24/22 09:26 Macrocytosis Not Reportable 05/24/22 09:26 Spherocytes Not Reportable 05/24/22 09:26 Pappenheimer Bodies Not Reportable 05/24/22 09:26 Sickle Cells Not Reportable 05/24/22 09:26 Target Cells Not Reportable 05/24/22 09:26 Tear Drop Cells Not Reportable 05/24/22 09:26 Ovalocytes Not Reportable 05/24/22 09:26 Helmet Cells Not Reportable 05/24/22 09:26 [place] Bodies Not Reportable 05/24/22 09:26 [place] Rings Not Reportable 05/24/22 09:26 Neftali Cells Not Reportable 05/24/22 09:26 Bite Cells Not Reportable 05/24/22 09:26 Crenated Cell Not Reportable 05/24/22 09:26 Elliptocytes Not Reportable 05/24/22 09:26 Acanthocytes (Spur) Not Reportable 05/24/22 09:26 Rouleaux Not Reportable 05/24/22 09:26 Hemoglobin C Crystals Not Reportable 05/24/22 09:26 Schistocytes Not Reportable 05/24/22 09:26 Malaria parasites Not Reportable 05/24/22 09:26 Jerad Bodies Not Reportable 05/24/22 09:26 Hem Pathologist Commnt No 05/24/22 09: PT 17.8 Sec. (12.2-14.9) H 05/24/22 09: INR 1.31 (0.87-1.13) H 05/24/22 09:26 APTT 38.0 Sec. (24.2-36.6) H 05/24/22 09:26 ABG pH 7.346 pH Units (7.350-7.450) L 05/24/22 10:25 ABG pCO2 24.9 mm Hg 05/24/22 10:25 ABG pO2 88.5 mm Hg (80.0-90.0) 05/24/22 10:25 ABG HCO3 13.3 mmol/L (20.0-26.0) L 05/24/22 10:25 ABG O2 Saturation 96.9 % (95.0-99.0) 05/24/22 10:25 ABG O2 Content 20.1 (0.0-44) 05/24/22 10:25 ABG Base Excess -10.3 mmol/L (-2.0-3.0) L 05/24/22 10:25 ABG Hemoglobin 15.0 gm/dl (12.0-16.0) 05/24/22 10:25 ABG Carboxyhemoglobin 1.1 % (0.0-5.0) 05/24/22 10:25 ABG Methemoglobin 0.5 % (0.0-1.5) 05/24/22 10:25 Oxyhemoglobin 95.3 % (95.0-99.0) 05/24/22 10:25 FiO2 21 % 05/24/22 10:25 Sodium 135 mmol/L (137-145) L 05/24/22 09: Potassium 4.9 mmol/L (3.6-5.0) 05/24/22 09:26 Chloride 99.7 mmol/L (98-107) 05/24/22 09: Carbon Dioxide 15 mmol/L (22-30) L 05/24/22 09: Anion Gap 25 mmol/L 05/24/22 09:26 BUN 151 mg/dL (7-17) H 05/24/22 09:26 Creatinine 4.8 mg/dL (0.6-1.2) H 05/24/22 09:26 Estimated GFR 9 ml/min 05/24/22 09:26 BUN/Creatinine Ratio 31 % 05/24/22 09:26 Glucose 109 mg/dL (65-100) H 05/24/22 09:26 POC Glucose 115 mg/dL (70-105) H 05/24/22 09:34 Lactic Acid 1.70 mmol/L (0.7-2.0) 05/24/22 11:51 Calcium 10.2 mg/dL (8.4-10.2) 05/24/22 09:26 Total Bilirubin 0.50 mg/dL (0.1-1.2) 05/24/22 09:26 AST 58 units/L (5-40) H 05/24/22 09:26 ALT 38 units/L (7-56) 05/24/22 09:26 Alkaline Phosphatase 189 units/L (35-129) H 05/24/22 09:26 Total Creatine Kinase 313 units/L (30-135) H 05/24/22 09:26 CK-MB (CK-2) 14.5 ng/mL (0.0-4.0) H 05/24/22 09:26 CK-MB (CK-2) Rel Index 4.6 (0-4) H 05/24/22 09:26 Troponin T < 0.010 ng/mL (0.00-0.029) 05/24/22 14:55 NT-Pro-B Natriuret Pep 773.1 pg/mL (0-900) 05/24/22 09:26 Total Protein 6.3 g/dL (6.3-8.2) 05/24/22 09:26 Albumin 2.7 g/dL (3.9-5) L 05/24/22 09:26 Albumin/Globulin Ratio 0.8 % 05/24/22 09:26 TSH 2.860 mlU/mL (0.270-4.200) 05/24/22 09:26 Free T4 1.09 ng/dL (0.76-1.46) 05/24/22 09:26 Urine Color Yellow (Yellow) 05/24/22 10:48 Urine Turbidity Slightly cloudy (Clear) 05/24/22 10:48 Specific [place] (Man) 1.015 (1.003-1.030) 05/24/22 10:48 Ur Protein (Man) 1+ mg/dL (Negative) 05/24/22 10:48 Ur Ketones (Man) Negative (Negative) 05/24/22 10:48 Ur Nitrite (Man) Negative (Negative) 05/24/22 10:48 Urine Bilirubin (Man) Negative (Negative) 05/24/22 10:48 Leukocyte Esterase (Man) 3+ (Negative) 05/24/22 10:48 Urine WBC (Auto) 25.0 /HPF (0.0-6.0) H 05/24/22 10:48 Urine RBC (Auto) 10.0 /HPF (0.0-6.0) 05/24/22 10:48 U Epithel Cells (Auto) 100.0 /HPF (0-13.0) H 05/24/22 10:48 Urine RBC (Manual) 3+ (Negative) 05/24/22 10:48 Amorphous Crystals 3+ 05/24/22 10:48 Short CBC 05/24/22 05/25/22 Range/Units 09:26 04:00 WBC 21.4 H 21.7 H (4.5-11.0) K/mm3 Hgb 13.5 11.4 (10.1-14.3) gm/dl Hct 40.6 35.0 (30.3-42.9) % Plt Count 187 174 (140-440) K/mm3 BMP 05/24/22 05/24/22 05/25/22 09:26 19:24 04:00 Sodium 135 L 138 143 Potassium 4.9 4.5 4.3 Chloride 99.7 108.7 H 112.6 H Carbon Dioxide 15 L 13 L 16 L BUN 151 H 142 H 132 H Creatinine 4.8 H 4.7 H 3.9 H Glucose 109 H 74 106 H Calcium 10.2 8.9 8.2 L Cardiac Enzymes 05/24/22 05/24/22 05/24/22 Range/Units 09:26 14:55 19:24 Total Creatine Kinase 313 H 257 H (30-135) units/L CK-MB (CK-2) 14.5 H (0.0-4.0) ng/mL Troponin T < 0.010 (0.00-0.029) ng/mL Liver Function 05/24/22 05/25/22 Range/Units 09:26 04:00 Total Bilirubin 0.50 0.30 (0.1-1.2) mg/dL AST 58 H 55 H (5-40) units/L ALT 38 31 (7-56) units/L Alkaline Phosphatase 189 H 146 H (35-129) units/L Albumin 2.7 L 2.2 L (3.9-5) g/dL Urine 05/24/22 Range/Units 10:48 Urine Color Yellow (Yellow) Microbiology: Microbiology 05/24/22 09:26 Peripheral/Venous Blood Culture - Preliminary Culture in Progress 05/24/22 09:26 Peripheral/Venous Blood Culture - Preliminary Culture in Progress - Imaging and Cardiology Imaging and Cardiology: Chest x-ray No acute findings Head CT Microangiopathy Cervical spine CT Nursing will signs of acute bony trauma of the cervical spine Chest CT No identifiable chest wall infection bibasilar dependent consolidation likely atelectasis acute left second through fifth rib fractures age-indeterminate but likely chronic anterior right third and fourth rib fractures Normal indeterminate compression of deformity of T7 Faint peripancreatic fat stranding Assessment and Plan Assessment and plan: Critical care statement The high probability OF a clinically significant sudden or life-threatening deterioration of the cardiorespiratory system and endocrine system required my full and direct attention, intervention and postoperative management. The aggregate critical care time was 62 minutes the time is in addition to time spent performing reported procedures but includes the followin: Data review and interpretation 2: Patient assessment and monitoring of vital signs 3: Documentation 4:: Medication orders and management Advance Directives: Yes (Full code) VTE prophylaxis?: Chemical Plan of care discussed with patient/family: Yes - Patient Problems (1) Septic shock Current Visit: Yes Status: Acute Plan to address problem: Patient initiated on IV cefepime and vancomycin IV Levophed as necessary Cellulitis of the anterior chest may be responsible for the sepsis (2) Cellulitis of chest wall Current Visit: Yes Status: Acute Plan to address problem: Patient initiated on cefepime and vancomycin (3) OTTO (acute kidney injury) Current Visit: Yes Status: Acute Plan to address problem: IV fluids for now Deferred dialysis because of no hyperkalemia and creatinine is 4.8 Discussed with nephrology Trialysis catheter was placed in case she needs a Vas-Cath for dialysis (4) Multiple rib fractures Current Visit: Yes Status: Acute Qualifiers: Laterality: left Plan to address problem: Multiple rib fractures on the left side secondary to sixth [employer] to 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
--- NOTE | 2022-05-24 19:12 | Procedure Note ---
Date of procedure: 05/24/22 Pre-op diagnosis: uremia/sepsis needing emergent HD Post-op diagnosis: same Procedure: Statement of consent: Emergent procedure for HD, two MD consent Dr. Cummings and Dr. Moore->See chart for details Trialysis catheter was placed in Right internal jugular vein. Sterile technique was utilized. Patient prepped and placed in trendelenburg position. Area prepped with chlorhexidine/ full body drape utilized. Target vessel visualized with ultrasound. Using seldinger technique, a finder needle was used to puncture target vessel. Wire was threaded through the needle, skin was nicked and needle was withdrawn over wire. A dilator was passed over the wire and tract was dilated. A trialysis catheter was threaded over a wire. All three ports withdrew blood and flushed without difficulty with saline. Line sutured in place and dressed with tegaderm. Biopatch not available. Chest x-ray to confirm placement ordered. Pt tolerated procedure well. VS remained stable throughout procedure. (time spent placing line not included in daily critical care time) CCT: 60 mins Anesthesia: local Surgeon: TERESA GRAY Estimated blood loss: minimal Condition: critical Disposition: ICU
[2022-05-24 20:14] LABS: Calcium 8.9 mg/dL (8.4-10.2)
[2022-05-24] MEDS: SODIUM BICARBONATE 150 MEQ in DEXTROSE 5% IN WATER 1,000 ML IV SCH (20:47)
[2022-05-24] MEDS ORDERED: SODIUM CHLORIDE 0.9% 1000 ML 1,000 ML ONE (21:02)
[2022-05-24 21:03] LABS: Hepatitis B Surface Antigen Non-Reactive (Negative); Hepatitis C Virus Antibody Non-Reactive (NonReactive)
[2022-05-24] MEDS ORDERED: METOCLOPRAMIDE 10 MG/2 ML INJ IV PRN (21:21)
[2022-05-24] MEDS ORDERED: ONDANSETRON 4 MG/2 ML INJ IV PRN (21:21)
[2022-05-24] MEDS ORDERED: SODIUM CHLORIDE 0.9% 1000 ML 1,000 ML IV SCH (21:30)
--- NOTE | 2022-05-24 21:39 | XRay Report ---
CHEST 1 VIEW 05/24/2022 8:21 PM INDICATION / CLINICAL INFORMATION: VAS CATH PLACEMENT. COMPARISON: 05/24/2022 FINDINGS: SUPPORT DEVICES: The Vas-Cath tip projects the level of the superior vena cava near the right atrial junction. HEART / MEDIASTINUM: No significant abnormality. LUNGS / PLEURA: There is mild perihilar edema and mild venous congestion. No pneumothorax. ADDITIONAL FINDINGS: No significant additional findings. IMPRESSION: 1. Central line in expected position. Signer Name: Franco Thrasher MD Signed: 05/24/2022 9:35 PM Workstation Name: [id number]
[2022-05-24] MEDS ORDERED: FAMOTIDINE 20 MG/2 ML INJ IV SCH (22:00)
[2022-05-24] MEDS: CEFEPIME/NS 1 GM/100 ML 1 GM/100 ML BAG IV SCH (22:09)
--- NOTE | 2022-05-24 22:12 | Ultrasound Report ---
ULTRASOUND RENAL INDICATION / CLINICAL INFORMATION: renal failure. COMPARISON: None available. FINDINGS: RIGHT KIDNEY: Length = 9.6 cm. - Echogenicity: Normal. - Parenchymal Thickness: Normal. - Hydronephrosis: None. - Cyst / Mass: None. - Stones: None seen. LEFT KIDNEY: Length = 10.9 cm. - Echogenicity: Normal. - Parenchymal Thickness: Normal. - Hydronephrosis: None. - Cyst / Mass: None. - Stones: None seen. URINARY BLADDER: No significant abnormality. FREE FLUID: None. ADDITIONAL FINDINGS: None. IMPRESSION: 1. No significant abnormality. Signer Name: Franco Thrasher MD Signed: 05/24/2022 10:08 PM Workstation Name: [id number]
[2022-05-24 23:24] LABS: Creatinine,Urine 144.6 mg/dL (0.1-20.0)
[2022-05-25] MEDS: NORepinephrine/NS 8 MG-250 ML 8 MG/250 ML INFUS..BTL IV SCH ×2 (00:19→22:17)
[2022-05-25 04:38] LABS: Hemoglobin 11.4 gm/dl (10.1-14.3); Mean Corpuscular HGB Conc 33 % (30-34); Mean Corpuscular Volume 99 fl (79-97); Platelet Count 174 K/mm3 (140-440); Red Blood Count 3.53 M/mm3 (3.65-5.03); Red Cell Distribution Width 14.1 % (13.2-15.2)
[2022-05-25 05:06] LABS: Albumin 2.2 g/dL (3.9-5); Calcium 8.2 mg/dL (8.4-10.2)
[2022-05-25] MEDS: CEFEPIME/NS 1 GM/100 ML 1 GM/100 ML BAG IV SCH (05:25)
[2022-05-25 05:28] LABS: Basophils % (Manual) 0 % (0.0-1.8); Eosinophils % (Manual) 0 % (0.0-4.3); Monocytes % (Manual) 0 % (0.0-7.3); Total Cells Counted 100
[2022-05-25 05:29] LABS: Platelet Estimate Consistent w Auto
[2022-05-25] MEDS: SODIUM BICARBONATE 150 MEQ in DEXTROSE 5% IN WATER 1,000 ML IV SCH ×2 (08:19→20:35)
[2022-05-25] MEDS: FAMOTIDINE 20 MG/2 ML INJ IV SCH ×2 (09:43→22:19)
--- NOTE | 2022-05-25 10:33 | Electrocardiograph Report ---
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
[2022-05-25] MEDS ORDERED: METOCLOPRAMIDE 10 MG/2 ML INJ IV PRN (11:00)
--- NOTE | 2022-05-25 12:08 | Event Note ---
Date: 05/25/22 72 y/o inmate admitted with altered mental status and presumptive acute renal failure. BUN 151. Patient also found to have anterior chest cellulitis with areas of purulence. Remains altered this am. has a vascath in right IJ and right CVL as well. On low dose pressors and bicarb drip. Suggest the followin. Removed TLC from groin and use third port on trialysis catheter. 2. Agree with abx therapy for cellulitis of chest, needs wound consult 3. No sedative medication 4. Repeat vanc level on Sunday, goal 10-20 5. Follow up nephrology recs for need of HD. Numbers did improve with volume. Patient could be septic from chest wound.
--- NOTE | 2022-05-25 12:35 | Progress Note ---
Assessment and Plan Assessment: Severe Renal Failure secondary to pre-renal Etiology vs IATN vs advanced CKD Hypertension AMS Gout Plan: Renal labs reviewed. Recent serum creatinine 3.9 today and BUN 132. Admission serum creatinine was 4.8 and BUN 151. Baseline serum creatinine unknown On Sodium bicarbonate drip Renal ultrasound reviewed- No hydronephrosis Urine lytes reviewed. Has mild proteinuria. No urine eosinophils Avoid nephrotoxic agents Obtain daily weights Monitor I/O's daily, monitor UOP Continue to monitor renal function closely Patient was not initiated on HD yesterday Plan of care reviewed by Dr. May Subjective Date of service: 05/25/22 Principal diagnosis: ARF, Sepsis Interval history: Patient seen lying in bed. Nurse at bedside. Remains with AMS Objective - Vital Signs Vital signs: Vital Signs - 12hr 05/25/22 05/25/22 05/25/22 00:45 01:00 01:15 Temperature Pulse Rate 83 76 70 Pulse Rate [ From Monitor] Respiratory 20 16 21 Rate Blood Pressure 79/46 82/43 84/35 Blood Pressure [Left] O2 Sat by Pulse 98 99 Oximetry 05/25/22 05/25/22 05/25/22 01:30 01:46 02:00 Temperature Pulse Rate 90 82 77 Pulse Rate [ From Monitor] Respiratory 18 17 23 Rate Blood Pressure 83/36 103/22 103/22 Blood Pressure [Left] O2 Sat by Pulse 99 99 99 Oximetry 05/25/22 05/25/22 05/25/22 02:15 02:30 02:45 Temperature Pulse Rate 94 H 84 86 Pulse Rate [ From Monitor] Respiratory 18 17 19 Rate Blood Pressure 89/56 97/51 93/54 Blood Pressure [Left] O2 Sat by Pulse 97 97 Oximetry 05/25/22 05/25/22 05/25/22 03:00 03:15 03:30 Temperature Pulse Rate 90 85 101 H Pulse Rate [ From Monitor] Respiratory 19 23 25 H Rate Blood Pressure 94/50 94/55 87/60 Blood Pressure [Left] O2 Sat by Pulse 98 97 99 Oximetry 05/25/22 05/25/22 05/25/22 03:46 04:00 04:15 Temperature 97.6 F Pulse Rate 101 H 103 H 92 H Pulse Rate [ 103 H From Monitor] Respiratory 23 17 17 Rate Blood Pressure 87/50 88/57 89/56 Blood Pressure [Left] O2 Sat by Pulse 98 99 97 Oximetry 05/25/22 05/25/22 05/25/22 04:30 04:45 05:00 Temperature Pulse Rate 101 H 102 H 97 H Pulse Rate [ From Monitor] Respiratory 17 19 19 Rate Blood Pressure 91/64 100/57 92/61 Blood Pressure [Left] O2 Sat by Pulse 99 97 97 Oximetry 05/25/22 05/25/22 05/25/22 05:15 05:30 05:45 Temperature Pulse Rate 99 H 96 H 98 H Pulse Rate [ From Monitor] Respiratory 22 16 17 Rate Blood Pressure 97/60 101/53 92/58 Blood Pressure [Left] O2 Sat by Pulse 98 97 98 Oximetry 05/25/22 05/25/22 05/25/22 06:00 08:00 12:00 Temperature 97.7 F 97.9 F Pulse Rate 94 H 101 H 102 H Pulse Rate [ 101 H 102 H From Monitor] Respiratory 25 H 20 24 Rate Blood Pressure 86/56 95/59 Blood Pressure 93/54 [Left] O2 Sat by Pulse 97 97 98 Oximetry - General Appearance General appearance: other (Confused) EENT: ATNC Neck: no JVD Respiratory: Present: Decreased Breath Sounds Cardiology: S1S2 Gastrointestinal: normoactive bowel sounds Integumentary: warm and dry Neurologic: other (Confused, somnolence) Musculoskeletal: other (positive edema) - Lab 05/25/22 04:00 05/25/22 04:00 Most recent lab results ABG pH 7.346 pH Units (7.350-7.450) L 05/24/22 10:25 ABG pCO2 24.9 mm Hg 05/24/22 10:25 ABG pO2 88.5 mm Hg (80.0-90.0) 05/24/22 10:25 ABG HCO3 13.3 mmol/L (20.0-26.0) L 05/24/22 10:25 ABG O2 Saturation 96.9 % (95.0-99.0) 05/24/22 10:25 Calcium 8.2 mg/dL (8.4-10.2) L 05/25/22 04:00 Phosphorus 5.50 mg/dL (2.5-4.5) H 05/25/22 04:00 Urine Creatinine 144.6 mg/dL (0.1-20.0) H 05/24/22 23:00 Urine Sodium 70 mmol/L 05/24/22 23:00 Urine Total Protein 160 mg/dL (5-11.8) H 05/24/22 23:00 Medications & Allergies - Medications Allergies/Adverse Reactions: Allergies Sulfa (Sulfonamide Antibiotics) Adverse Reaction (Verified 05/24/22 08:32) Unknown Active Medications: Generic Name Dose Route Start Last Admin Trade Name Freq PRN Reason Stop Dose Admin Acetaminophen 650 mg 05/24/22 14:47 Acetaminophen 650 Mg Rect Supp DE Q6H PRN Pain MILD(1-3)/Fever >100.5/KEVIN Acetaminophen 650 mg 05/24/22 21:21 Acetaminophen 325 Mg Tab PO Q4H PRN Pain MILD(1-3)/Fever >100.5/KEVIN Famotidine 10 mg 05/25/22 10:00 05/25/22 09:43 Famotidine 20 Mg/2 Ml Inj IV 10 mg BID MADAN Administration Hydromorphone HCl 0.5 mg 05/24/22 21:21 Hydromorphone 0.5 Mg/0.5 Ml Inj IV Q3H PRN Pain , Severe (7-10) Sodium Bicarbonate 150 meq/ 1,150 mls @ 100 mls/hr 05/24/22 20:00 05/25/22 08:19 Dextrose IV 100 mls/hr DIRECT MADAN Administration NORepinephrine/NS 8 MG-250 ML 8 mg in 250 mls @ 3.75 mls/hr 05/24/22 22:00 05/25/22 01:17 Norepinephrine/Ns 8 Mg-250 Ml (Double Conc) IV 6 mcg/min TITRATE MADAN 11.25 mls/hr Titration Protocol 2 MCG/MIN Cefepime HCl 1 gm in 100 mls @ 200 mls/hr 05/26/22 18:00 Cefepime/Ns 1 Gm/100 Ml IV Q24H MADAN Protocol Metoclopramide HCl 5 mg 05/25/22 11:00 Metoclopramide 10 Mg/2 Ml Inj IV Q6H PRN Nausea And Vomiting Morphine Sulfate 2 mg 05/24/22 14:47 Morphine 2 Mg/1 Ml Inj IV Q4H PRN Pain, Moderate (4-6) Ondansetron HCl 4 mg 05/24/22 21:21 Ondansetron 4 Mg/2 Ml Inj IV Q3H PRN Nausea And Vomiting Sodium Chloride 10 ml 05/24/22 22:00 05/25/22 09:41 Sodium Chloride 0.9% 10 Ml Flush Syringe IV 10 ml BID MADAN Administration Sodium Chloride 10 ml 05/24/22 14:47 Sodium Chloride 0.9% 10 Ml Flush Syringe IV PRN PRN LINE FLUSH Sodium Chloride 10 ml 05/24/22 22:00 05/25/22 09:41 Sodium Chloride 0.9% 10 Ml Flush Syringe IV 10 ml BID MADAN Administration Sodium Chloride 10 ml 05/24/22 21:21 Sodium Chloride 0.9% 10 Ml Flush Syringe IV PRN PRN LINE FLUSH
[2022-05-25] MEDS ORDERED: VANCOMYCIN PHARMACY TO DOSE IV SCH (15:00)
--- NOTE | 2022-05-25 19:16 | Progress Note ---
Assessment and Plan Assessment and plan: This is a 72-year-old inmate with HTN admitted with severe renal failure, sepsis, altered mental status Neuro: Acute metabolic encephalopathy -CT head showed microvascular angiopathy, no clear CT evidence of acute cranial hemorrhage -CT C-spine shows no signs of acute bony trauma in the cervical spine -Reorientation as needed -Maintain sleep-wake cycle -As needed analgesia Cardiac: Hypotension, h/o hypertension -Cardiology consulted, appreciate recommendations -Blood pressure monitoring per protocol -Vasopressor support with Levophed -MAP goal greater than 65 Respiratory: Acute hypoxic respiratory failure -Currently on nasal cannula -SPO2 monitor per protocol -Pulmonary hygiene GI: Moderate protein calorie malnutrition -24 hours -400 -PPI -Currently n.p.o. -BR: Colace : Severe renal failure secondary to prerenal etiology versus ATN versus advanced CKD, metabolic acidosis -Nephrology consulted, appreciate recommendations -Monitor intake and output -Renally dose medications -Avoid nephrotoxic medications -FeNa 1.7 -Renal ultrasound showed no significant abnormality -Sodium bicarbonate drip ID: Sepsis, cellulitis -Antibiotic therapy with cefepime and vancomycin -WOCN consult -Culture pending -f/u blood culture -Monitor WBC and temperature curve Endo: NAD -Avoid hypoglycemia -SSI -Accu-Cheks q. 6 Heme: Leukocytosis -Trend CBC -Transfuse hemoglobin less than 7 -SCDs to BLE while in bed MS: Acute left second through fifth rib fractures (likely chronic anterior right third and fourth rib fractures), compression deformity of T7 -CT chest shows bibasilar dependent consolidation, acute left second through fifth rib fractures (age-indeterminate but likely chronic anterior right third and fourth rib fractures), age-indeterminate compression deformity of T7, faint peripancreatic fat stranding, endometrial cavity appears prominent in size- Supportive care -Analgesic as needed -Follow-up for outpatient abdominal ultrasound The high probability of a clinically significant, sudden or life threatening deterioration of the [multi] system(s) required my full and direct attention, intervention and personal management. The aggregate critical care time was [60] minutes. This time is in addition to time spent performing reported procedures but includes the following: [x] Data Review and interpretation [x] Patient assessment and monitoring of vital signs [x] Documentation [x] Medication orders and management Disposition Plan: icu Total Time Spent with Patient (Minutes): 60 History Interval history: This is a 72-year-old inmate with hypertension presents the emergency department due to altered mental status. Patient was found soiled with feces, altered and with bradycardia in the alf cell. In the emergency department patient was bradycardic, lab work showed leukocytosis, hyponatremia, metabolic acidosis, elevated BUN/creatinine of 4.8/151 and nephrology was consulted. Patient was noted to have cellulitis of the right wall chest and was hypothermic. She was given cefepime and Vanco in the ED and bolus with normal saline. CT chest showed bibasilar dependent consolidations likely atelectasis, acute left second through fifth rib fractures (likely chronic anterior right third and fourth rib fractures), compression deformity of T7, CT C-spine showed no acute abnormalities, CT head showed microvascular angiopathy, CXR showed no acute findings, abdomen/pelvis CT showed patent peripancreatic fat stranding. Patient was admitted to the hospitalist service with consults to nephrology and [facility] with sepsis, acute metabolic encephalopathy and acute kidney injury. Hospital course to date: 05/25: Yesterday evening Vas-Cath was placed emergently due to initiation of dialysis however this was not initiated. 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 Overnight patient was started on Levophed. Patient started on cefepime and vancomycin. Wound care consult placed for chest wall cellulitis. From a CPR removed. Continues on D5W sodium bicarbonate drip. RN to unable to place NG tube. Hospitalist Physical - Constitutional Vitals: Temp Pulse Resp BP Pulse Ox 98.4 F 158 H 19 91/56 92 05/25/22 16:00 05/25/22 16:00 05/25/22 16:00 05/25/22 16:00 05/25/22 16:00 General appearance: Present: no acute distress, well-nourished - EENT Eyes: Present: EOM intact ENT: poor dentition - Neck Neck: Present: normal ROM - Respiratory Respiratory effort: normal Respiratory: bilateral: CTA - Cardiovascular Rhythm: regular Heart Sounds: Present: S1 & S2. Absent: systolic murmur, diastolic murmur - Extremities Extremities: no ischemia, pulses intact, pulses symmetrical, No edema, normal temperature, normal color Peripheral Pulses: within normal limits - Abdominal General gastrointestinal: soft, non-tender, non-distended, normal bowel sounds - Integumentary Integumentary: Present: erythema (chest wall, anterior with purluent drainage, red) - Psychiatric Psychiatric: agitated, other (doesnt follow commands) - Neurologic Neurologic: moves all extremities - Allied Health Allied health notes reviewed: nursing, RT, social work HEART Score - HEART Score Troponin: Troponin T < 0.010 ng/mL (0.00-0.029) 05/24/22 14:55 Results - Labs CBC & Chem 7: 05/25/22 04:00 05/25/22 04:00 Labs: Laboratory Last Values WBC 21.7 K/mm3 (4.5-11.0) H 05/25/22 04:00 RBC 3.53 M/mm3 (3.65-5.03) L 05/25/22 04:00 Hgb 11.4 gm/dl (10.1-14.3) 05/25/22 04:00 Hct 35.0 % (30.3-42.9) 05/25/22 04:00 MCV 99 fl (79-97) H 05/25/22 04:00 MCH 32 pg (28-32) 05/25/22 04:00 MCHC 33 % (30-34) 05/25/22 04:00 RDW 14.1 % (13.2-15.2) 05/25/22 04:00 Plt Count 174 K/mm3 (140-440) 05/25/22 04:00 Add Manual Diff Complete 05/25/22 04:00 Total Counted 100 05/25/22 04:00 Seg Neutrophils % Manager Of Clinical 05/24/22 09:26 Seg Neuts % (Manual) 99.0 % (40.0-70.0) H 05/25/22 04:00 Band Neutrophils % 0 % 05/25/22 04:00 Lymphocytes % (Manual) 1.0 % (13.4-35.0) L 05/25/22 04:00 Reactive Lymphs % (Man) 0 % 05/25/22 04:00 Monocytes % (Manual) 0 % (0.0-7.3) 05/25/22 04:00 Eosinophils % (Manual) 0 % (0.0-4.3) 05/25/22 04:00 Basophils % (Manual) 0 % (0.0-1.8) 05/25/22 04:00 Metamyelocytes % 0 % 05/25/22 04:00 Myelocytes % 0 % 05/25/22 04:00 Promyelocytes % 0 % 05/25/22 04:00 Blast Cells % 0 % 05/25/22 04:00 Nucleated RBC % Not Reportable 05/25/22 04:00 Seg Neutrophils # Man 21.5 K/mm3 (1.8-7.7) H 05/25/22 04:00 Band Neutrophils # 0.0 K/mm3 05/25/22 04:00 Lymphocytes # (Manual) 0.2 K/mm3 (1.2-5.4) L 05/25/22 04:00 Abs React Lymphs (Man) 0.0 K/mm3 05/25/22 04:00 Monocytes # (Manual) 0.0 K/mm3 (0.0-0.8) 05/25/22 04:00 Eosinophils # (Manual) 0.0 K/mm3 (0.0-0.4) 05/25/22 04:00 Basophils # (Manual) 0.0 K/mm3 (0.0-0.1) 05/25/22 04:00 Metamyelocytes # 0.0 K/mm3 05/25/22 04:00 Myelocytes # 0.0 K/mm3 05/25/22 04:00 Promyelocytes # 0.0 K/mm3 05/25/22 04:00 Blast Cells # 0.0 K/mm3 05/25/22 04:00 WBC Morphology Not Reportable 05/25/22 04:00 Hypersegmented Neuts Not Reportable 05/25/22 04:00 Hyposegmented Neuts Not Reportable 05/25/22 04:00 Hypogranular Neuts Not Reportable 05/25/22 04:00 Smudge Cells Not Reportable 05/25/22 04:00 Toxic Granulation Not Reportable 05/25/22 04:00 Toxic Vacuolation Not Reportable 05/25/22 04:00 Dohle Bodies Not Reportable 05/25/22 04:00 Pelger-Huet Anomaly Not Reportable 05/25/22 04:00 Raphael Rods Not Reportable 05/25/22 04:00 Platelet Estimate Consistent w auto 05/25/22 04:00 Clumped Platelets Not Reportable 05/25/22 04:00 Plt Clumps, EDTA Not Reportable 05/25/22 04:00 Large Platelets Not Reportable 05/25/22 04:00 Giant Platelets Not Reportable 05/25/22 04:00 Platelet Satelliting Not Reportable 05/25/22 04:00 Plt Morphology Comment Not Reportable 05/25/22 04:00 RBC Morphology Not Reportable 05/25/22 04:00 Dimorphic RBCs Not Reportable 05/25/22 04:00 Polychromasia Not Reportable 05/25/22 04:00 Hypochromasia Not Reportable 05/25/22 04:00 Poikilocytosis Not Reportable 05/25/22 04:00 Anisocytosis Not Reportable 05/25/22 04:00 Microcytosis Not Reportable 05/25/22 04:00 Macrocytosis Not Reportable 05/25/22 04:00 Spherocytes Not Reportable 05/25/22 04:00 Pappenheimer Bodies Not Reportable 05/25/22 04:00 Sickle Cells Not Reportable 05/25/22 04:00 Target Cells Not Reportable 05/25/22 04:00 Tear Drop Cells Not Reportable 05/25/22 04:00 Ovalocytes Not Reportable 05/25/22 04:00 Helmet Cells Not Reportable 05/25/22 04:00 Walker-Conyngham Bodies Not Reportable 05/25/22 04:00 Lansford Rings Not Reportable 05/25/22 04:00 Neftali Cells Not Reportable 05/25/22 04:00 Bite Cells Not Reportable 05/25/22 04:00 Crenated Cell Not Reportable 05/25/22 04:00 Elliptocytes Not Reportable 05/25/22 04:00 Acanthocytes (Spur) Not Reportable 05/25/22 04:00 Rouleaux Not Reportable 05/25/22 04:00 Hemoglobin C Crystals Not Reportable 05/25/22 04:00 Schistocytes Not Reportable 05/25/22 04:00 Malaria parasites Not Reportable 05/25/22 04:00 Jerad Bodies Not Reportable 05/25/22 04:00 Hem Pathologist Commnt No 05/25/22 04:00 PT 17.8 Sec. (12.2-14.9) H 05/24/22 09:26 INR 1.31 (0.87-1.13) H 05/24/22 09: APTT 38.0 Sec. (24.2-36.6) H 05/24/22 09:26 ABG pH 7.346 pH Units (7.350-7.450) L 05/24/22 10:25 ABG pCO2 24.9 mm Hg 05/24/22 10:25 ABG pO2 88.5 mm Hg (80.0-90.0) 05/24/22 10:25 ABG HCO3 13.3 mmol/L (20.0-26.0) L 05/24/22 10:25 ABG O2 Saturation 96.9 % (95.0-99.0) 05/24/22 10:25 ABG O2 Content 20.1 (0.0-44) 05/24/22 10:25 ABG Base Excess -10.3 mmol/L (-2.0-3.0) L 05/24/22 10:25 ABG Hemoglobin 15.0 gm/dl (12.0-16.0) 05/24/22 10:25 ABG Carboxyhemoglobin 1.1 % (0.0-5.0) 05/24/22 10:25 ABG Methemoglobin 0.5 % (0.0-1.5) 05/24/22 10:25 Oxyhemoglobin 95.3 % (95.0-99.0) 05/24/22 10:25 FiO2 21 % 05/24/22 10:25 Sodium 143 mmol/L (137-145) 05/25/22 04:00 Potassium 4.3 mmol/L (3.6-5.0) 05/25/22 04:00 Chloride 112.6 mmol/L (98-107) H 05/25/22 04:00 Carbon Dioxide 16 mmol/L (22-30) L 05/25/22 04:00 Anion Gap 19 mmol/L 05/25/22 04:00 BUN 132 mg/dL (7-17) H 05/25/22 04:00 Creatinine 3.9 mg/dL (0.6-1.2) H 05/25/22 04:00 Estimated GFR 11 ml/min 05/25/22 04:00 BUN/Creatinine Ratio 34 % 05/25/22 04:00 Glucose 106 mg/dL (65-100) H 05/25/22 04:00 POC Glucose 136 mg/dL (70-105) H 05/25/22 11:50 Lactic Acid 1.70 mmol/L (0.7-2.0) 05/24/22 11:51 Calcium 8.2 mg/dL (8.4-10.2) L 05/25/22 04:00 Phosphorus 5.50 mg/dL (2.5-4.5) H 05/25/22 04:00 Total Bilirubin 0.30 mg/dL (0.1-1.2) 05/25/22 04:00 AST 55 units/L (5-40) H 05/25/22 04:00 ALT 31 units/L (7-56) 05/25/22 04:00 Alkaline Phosphatase 146 units/L (35-129) H 05/25/22 04:00 Total Creatine Kinase 257 units/L (30-135) H 05/24/22 19:24 CK-MB (CK-2) 14.5 ng/mL (0.0-4.0) H 05/24/22 09:26 CK-MB (CK-2) Rel Index 4.6 (0-4) H 05/24/22 09:26 Troponin T < 0.010 ng/mL (0.00-0.029) 05/24/22 14:55 NT-Pro-B Natriuret Pep 773.1 pg/mL (0-900) 05/24/22 09:26 Total Protein 5.4 g/dL (6.3-8.2) L 05/25/22 04:00 Albumin 2.2 g/dL (3.9-5) L 05/25/22 04:00 Albumin/Globulin Ratio 0.7 % 05/25/22 04:00 TSH 2.860 mlU/mL (0.270-4.200) 05/24/22 09:26 Free T4 1.09 ng/dL (0.76-1.46) 05/24/22 09:26 Urine Color Yellow (Yellow) 05/24/22 10:48 Urine Turbidity Slightly cloudy (Clear) 05/24/22 10:48 Specific [place] (Man) 1.015 (1.003-1.030) 05/24/22 10:48 Ur Protein (Man) 1+ mg/dL (Negative) 05/24/22 10:48 Ur Ketones (Man) Negative (Negative) 05/24/22 10:48 Ur Nitrite (Man) Negative (Negative) 05/24/22 10:48 Urine Bilirubin (Man) Negative (Negative) 05/24/22 10:48 Leukocyte Esterase (Man) 3+ (Negative) 05/24/22 10:48 Urine WBC (Auto) 25.0 /HPF (0.0-6.0) H 05/24/22 10:48 Urine RBC (Auto) 10.0 /HPF (0.0-6.0) 05/24/22 10:48 U Epithel Cells (Auto) 100.0 /HPF (0-13.0) H 05/24/22 10:48 Urine RBC (Manual) 3+ (Negative) 05/24/22 10:48 Amorphous Crystals 3+ 05/24/22 10:48 Urine Eosinophils None seen (None Seen) 05/24/22 23:00 Urine Creatinine 144.6 mg/dL (0.1-20.0) H 05/24/22 23:00 Urine Sodium 70 mmol/L 05/24/22 23:00 Urine Total Protein 160 mg/dL (5-11.8) H 05/24/22 23:00 Hep Bs Antigen Non-reactive (Negative) 05/24/22 20:40 Hep B Core IgM Ab Non-reactive (NonReactive) 05/24/22 20:40 Hepatitis C Antibody Non-reactive (NonReactive) 05/24/22 20:40 Microbiology: Microbiology 05/24/22 10:48 Urine,Clean Catch Urine Culture - Preliminary 05/24/22 09:26 Peripheral/Venous Blood Culture - Preliminary NO GROWTH AFTER 24 HOURS 05/24/22 09:26 Peripheral/Venous Blood Culture - Preliminary NO GROWTH AFTER 24 HOURS Sweeney/IV: Voiding Method Indwelling Catheter Active Medications - Current Medications Current Medications: Generic Name Dose Route Start Last Admin Trade Name Freq PRN Reason Stop Dose Admin Acetaminophen 650 mg 05/24/22 14:47 Acetaminophen 650 Mg Rect Supp CO Q6H PRN Pain MILD(1-3)/Fever >100.5/KEVIN Acetaminophen 650 mg 05/24/22 21:21 Acetaminophen 325 Mg Tab PO Q4H PRN Pain MILD(1-3)/Fever >100.5/KEVIN Famotidine 10 mg 05/25/22 10:00 05/25/22 09:43 Famotidine 20 Mg/2 Ml Inj IV 10 mg BID MADAN Administration Hydromorphone HCl 0.5 mg 05/24/22 21:21 Hydromorphone 0.5 Mg/0.5 Ml Inj IV Q3H PRN Pain , Severe (7-10) Sodium Bicarbonate 150 meq/ 1,150 mls @ 100 mls/hr 05/24/22 20:00 05/25/22 08:19 Dextrose IV 100 mls/hr DIRECT MADAN Administration NORepinephrine/NS 8 MG-250 ML 8 mg in 250 mls @ 3.75 mls/hr 05/24/22 22:00 05/25/22 01:17 Norepinephrine/Ns 8 Mg-250 Ml (Double Conc) IV 6 mcg/min TITRATE MADAN 11.25 mls/hr Titration Protocol 2 MCG/MIN Cefepime HCl 1 gm in 100 mls @ 200 mls/hr 05/26/22 18:00 Cefepime/Ns 1 Gm/100 Ml IV Q24H MADAN Protocol Metoclopramide HCl 5 mg 05/25/22 11:00 Metoclopramide 10 Mg/2 Ml Inj IV Q6H PRN Nausea And Vomiting Morphine Sulfate 2 mg 05/24/22 14:47 Morphine 2 Mg/1 Ml Inj IV Q4H PRN Pain, Moderate (4-6) Ondansetron HCl 4 mg 05/24/22 21:21 Ondansetron 4 Mg/2 Ml Inj IV Q3H PRN Nausea And Vomiting Sodium Chloride 10 ml 05/24/22 22:00 05/25/22 09:41 Sodium Chloride 0.9% 10 Ml Flush Syringe IV 10 ml BID MADAN Administration Sodium Chloride 10 ml 05/24/22 14:47 Sodium Chloride 0.9% 10 Ml Flush Syringe IV PRN PRN LINE FLUSH Sodium Chloride 10 ml 05/24/22 22:00 05/25/22 09:41 Sodium Chloride 0.9% 10 Ml Flush Syringe IV 10 ml BID MADAN Administration Sodium Chloride 10 ml 05/24/22 21:21 Sodium Chloride 0.9% 10 Ml Flush Syringe IV PRN PRN LINE FLUSH Nutrition/Malnutrition Assess - Dietary Evaluation Nutrition/Malnutrition Findings: Nutrition Notes Start: 05/25/22 14:08 Freq: Status: Active Protocol: Document 05/25/22 14:09 SUZETTE (Rec: 05/25/22 14:43 SUZETTE [id number]) Nutrition Notes Need for Assessment generated from: telecommunicator,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 Current Diet Cardiac Diet (since B 05/25). Labs/Tests 05/25: Cl 112.6, CO2 16, BUN 132, Crea 3.9, Glu 106. Pertinent Medications 05/25: Norepinephine 8mg, others nutritionally unremarkable. 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 Weight Status Obese Subjective/Other Information RD consult for skin risk and risk of malnutrition assessments. No repors on Pt's PO inbtake at the time, will assess at F/ U. I will prescribe Renal modification to current diet, to support Pt's OTTO condition during LOS. I will prescribe dietary supplementation to support wound healing processes during LOS. Pt is on Nasal Cannula, O2 saturation @ 99%, according to Physical Assessment History notes. Pt has dental caries, according to Physical Assessment History notes. Pt has HD on 05/24, according to Progress notes. Pt shows Rash, Redness and bruises on her chest as signs of concern for skin risk at the time, according to Physical Assessment History notes. Pt shows no signs of concern for risk of malnutrition at the time, according to Physical Assessment History notes. Percent of energy/protein needs met: Prescribed Cardiac -Renal- Diet provides for energy/ protein needs (2,230 Kcal/85 g ) during LOS; additionally, Dietary Supplements will support wound healing processes with 190 Kcal and 5 g of protein. Burn Absent Trauma Present GI Symptoms None Food Allergy No Skin Integrity/Comment Rash, Redness, bruises on chest. 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 Etiology Trauma on Pt's chest. As Evidenced by Signs and Symptoms Pt shows Rash, Redness and bruises on her chest as signs of concern for skin risk at the time, according to Physical Assessment History notes, and Multiple Rib Fractures, according to Progress notes. #1 Nutrition Diagnosis Altered nutrition-related laboratory values Etiology OTTO. As Evidenced by Signs and Symptoms 05/25: Cl 112.6, CO2 16, BUN 132, Crea 3.9, Glu 106. Is patient on ventilator? No Is Patient Ambulatory and/or Out of Bed Yes REE-(Hamilton-St. Jeor-ambulatory/OOB) [ 1836.978 [id number]] Kcal/Kg value to use for calculation 17 Approximate Energy Requirements Using 1542 kcal/Kg Calculation Used for Recommendations Kcal/kg Additional Notes Protein: 0.8-1.2 g/Kg AdjBW; 59-89 g/day. Fluids: 1 ml/Kcal, or as per MD. Nutrition Intervention Change Diet Order: Modify current diet to Cardiac -Renal- Diet, continue as tolerated. Add Supplement/Snack (indicate name/kcal Start Nepro w/CARBSTEADY; BID. /protein ) Provides kCal: 850 Provides Protein (gm) 38 Goal #1 Support, through dietary supplementation, wound healing processes during LOS. Goal #2 Help reach and maintain acceptable chemistry lab values during LOS. Goal #3 Adjust the dietary intervention to better serve Pt's energy/protein needs and clinical conditions during LOS . Follow-Up By: 06/01/22 Additional Comments Continue monitoring food tolerance, %PO intake of meals , dietary supplements, and BM.
[2022-05-26 05:12] LABS: Hematocrit 32.8 % (30.3-42.9); Hemoglobin 11.2 gm/dl (10.1-14.3); Mean Corpuscular HGB Conc 34 % (30-34); Mean Corpuscular Volume 97 fl (79-97); Platelet Count 106 K/mm3 (140-440); Red Blood Count 3.39 M/mm3 (3.65-5.03); Red Cell Distribution Width 13.7 % (13.2-15.2)
[2022-05-26 05:34] LABS: Calcium 8.7 mg/dL (8.4-10.2)
[2022-05-26] MEDS: SODIUM BICARBONATE 150 MEQ in DEXTROSE 5% IN WATER 1,000 ML IV SCH (08:30)
[2022-05-26] MEDS ORDERED: POTASSIUM CHLORIDE 20 MEQ 20 MEQ/100 ML BAG IV ONE (09:00)
[2022-05-26] MEDS: FAMOTIDINE 20 MG/2 ML INJ IV SCH ×2 (09:04→22:17)
[2022-05-26] MEDS ORDERED: LACTATED RINGERS 1,000 ML IV ONE ×2 (10:00→11:00)
[2022-05-26] MEDS ORDERED: METOPROLOL TARTRATE 5 MG/5 ML INJ IV SCH (10:00)
--- NOTE | 2022-05-26 10:50 | Consultation ---
History of Present Illness Consult date: 05/26/22 Consult reason: atrial fibrillation History of present illness: The patient is a 72-year-old woman who is incarcerated in the [facility], brought to the emergency room with complaints of altered mental status, fecal incontinence and low blood pressure. On presentation, she was found with cellulitis and purulent skin discharge over the anterior chest, leukocytosis of 21,000, severe renal failure with markedly elevated BUN and creatinine of 151 and 4.8 respectively. She remains stuporous in the ICU, on supportive management, including Levophed for hemodynamic support. Initial EKG on presentation the emergency room was a sinus bradycardia at 55. There was a nonspecific intraventricular conduction delay, but no acute ST or T wave changes of ischemia. Today, the patient developed new onset atrial fibrillation with high ventricular rates in the 130s. Cardiology consultation was requested for management of new onset rapid atrial fibrillation. Patient as described is stuporous, brought in from the [facility], unknown past cardiac history. Past History Past Medical History: hypertension, other (Gout) Social history: other (resides in residential) Medications and Allergies Allergies Allergy/AdvReac Type Severity Reaction Status Date / Time Sulfa (Sulfonamide AdvReac Unknown Verified 05/24/22 08:32 Antibiotics) Active Meds: Active Medications Acetaminophen (Acetaminophen 650 Mg Rect Supp) 650 mg [place] Q6H PRN PRN Reason: Pain MILD(1-3)/Fever >100.5/KEVIN Acetaminophen (Acetaminophen 325 Mg Tab) 650 mg PO Q4H PRN PRN Reason: Pain MILD(1-3)/Fever >100.5/KEVIN Famotidine (Famotidine 20 Mg/2 Ml Inj) 10 mg IV BID MADAN Last Admin: 05/26/22 09:04 Dose: 10 mg Hydromorphone HCl (Hydromorphone 0.5 Mg/0.5 Ml Inj) 0.5 mg IV Q3H PRN PRN Reason: Pain , Severe (7-10) Sodium Bicarbonate 150 meq/ (Dextrose) 1,150 mls @ 100 mls/hr IV DIRECT MADAN Last Admin: 05/26/22 08:30 Dose: 100 mls/hr NORepinephrine/NS 8 MG-250 ML (Norepinephrine/Ns 8 Mg-250 Ml (Double Conc)) 8 mg in 250 mls @ 3.75 mls/hr IV TITRATE MADAN; Protocol Last Titration: 05/26/22 10:05 Dose: 2 mcg/min, 3.75 mls/hr Cefepime HCl (Cefepime/Ns 1 Gm/100 Ml) 1 gm in 100 mls @ 200 mls/hr IV Q24H [facility]; Protocol Lactated Ringer's (Lactated Ringers) 1,000 mls @ 999 mls/hr IV BOLUS ONE Stop: 05/26/22 11:00 Last Admin: 05/26/22 09:40 Dose: 999 mls/hr Amiodarone HCl 150 mg/ (Dextrose) 100 mls @ 600 mls/hr IV ONCE ONE Stop: 05/26/22 10:56 Amiodarone HCl 900 mg/ (Dextrose) 500 mls @ 33.333 mls/hr IV DIRECT MADAN; Protocol Metoclopramide HCl (Metoclopramide 10 Mg/2 Ml Inj) 5 mg IV Q6H PRN PRN Reason: Nausea And Vomiting Metoprolol Tartrate (Metoprolol Tartrate 5 Mg/5 Ml Inj) 2.5 mg IV ONCE@1000 MADAN Stop: 05/26/22 14:00 Last Admin: 05/26/22 09:46 Dose: 2.5 mg Ondansetron HCl (Ondansetron 4 Mg/2 Ml Inj) 4 mg IV Q3H PRN PRN Reason: Nausea And Vomiting Sodium Chloride (Sodium Chloride 0.9% 10 Ml Flush Syringe) 10 ml IV BID [facility] Last Admin: 05/25/22 22:19 Dose: 10 ml Sodium Chloride (Sodium Chloride 0.9% 10 Ml Flush Syringe) 10 ml IV PRN PRN PRN Reason: LINE FLUSH Sodium Chloride (Sodium Chloride 0.9% 10 Ml Flush Syringe) 10 ml IV BID [facility] Last Admin: 05/26/22 00:31 Dose: 10 ml Sodium Chloride (Sodium Chloride 0.9% 10 Ml Flush Syringe) 10 ml IV PRN PRN PRN Reason: LINE FLUSH Review of Systems ROS unobtainable: due to mental status Physical Examination Vital Signs Pulse BP Pulse Ox 55 L 130/90 80 L 05/24/22 08:28 05/24/22 08:28 05/24/22 08:28 General appearance: other (Patient is stuporous, minimally responsive to noxious stimuli) HEENT: Positive: Other (Pupils sluggish) Neck: Positive: neck supple Cardiac: Positive: irregularly irregular Lungs: Positive: Decreased Breath Sounds Neuro: Positive: Weakness (Stuporous, generalized lethargy) Abdomen: Positive: Soft Female genitourinary: deferred Skin: Positive: Clear Extremities: Absent: edema Results 05/26/22 04:00 05/26/22 04:00 CBC 05/26/22 Range/Units 04:00 WBC 16.9 H (4.5-11.0) K/mm3 RBC 3.39 L (3.65-5.03) M/mm3 Hgb 11.2 (10.1-14.3) gm/dl Hct 32.8 (30.3-42.9) % Plt Count 106 L (140-440) K/mm3 Comprehensive Metabolic Panel 05/26/22 Range/Units 04:00 Sodium 146 H (137-145) mmol/L Potassium 3.2 L D (3.6-5.0) mmol/L Chloride 107.9 H (98-107) mmol/L Carbon Dioxide 24 D (22-30) mmol/L BUN 110 H (7-17) mg/dL Creatinine 2.5 H (0.6-1.2) mg/dL Glucose 139 H (65-100) mg/dL Calcium 8.7 (8.4-10.2) mg/dL EKG interpretations - Telemetry EKG Rhythm: Atrial Fibrillation (With rapid ventricular rate) Assessment and Plan - Patient Problems (1) New onset atrial fibrillation Current Visit: Yes Status: Acute Plan to address problem: Patient admitted with sepsis, acute renal failure and multiple severe metabolic derangements, develops new onset atrial fibrillation with rapid ventricular rate. We will start amiodarone therapy, obtain an echocardiogram, continue supportive care including rehydration and management of acute renal failure, sepsis and zoroastrian of acid-base balance.
--- NOTE | 2022-05-26 10:58 | Electrocardiograph Report ---
[facility] Test Date: 2022-05-26 Test Time: 09:31:06 Pat Name: TAZ LIZ Department: Room: A254 1 Gender: F Behavior Therapist: POLO : 1950 Requested By: TERESA GRAY Order Number: [id number] Reading MD: Jorge Kerns Measurements Intervals [place] Rate: 130 P: [place]: QRS: 7 QRSD: 87 T: 183 QT: 281 QTc: 413 Interpretive Statements Atrial fibrillation Posterior infarct, acute Compared to ECG 05/24/2022 09:06:34 Myocardial infarct finding now present Prolonged QT interval no longer present Electronically Signed On 05-26-2022 10:58:39 EDT by Jorge Kerns
[2022-05-26] MEDS ORDERED: AMIODARONE 150 MG in DEXTROSE 5% IN WATER 97 ML IV ONE (11:30)
[2022-05-26] MEDS: AMIODARONE 900 MG in DEXTROSE 5% IN WATER 482 ML IV SCH (11:46)
--- NOTE | 2022-05-26 11:59 | Progress Note ---
Assessment and Plan 72 y/o female with sepsis, likely secondary to anterior chest wall cellulitis with acute renal failure and electrolyte imbalance 1. Continue with IVF resuscitation 2. Broad spec abx 3. Follow up renal recs 4. Altered but able to maintain airway 5. Very very guarded to poor prognosis CCT 31 minutes. Subjective Date of service: 05/26/22 Principal diagnosis: ARF, Sepsis Interval history: Worsening clinical state. back on pressors. No HD per renal. Broaden abx. now in afib with RVR. Starting amio. Hypokalemic Objective - Constitutional Vitals: Vital Signs - 12hr 05/26/22 05/26/22 05/26/22 00:00 00:09 00:15 Temperature 99.3 F Pulse Rate 111 H 105 H 110 H Pulse Rate [ 110 H From Monitor] Respiratory 26 H 32 H 28 H Rate Blood Pressure 116/65 102/64 107/63 O2 Sat by Pulse 97 97 96 Oximetry 05/26/22 05/26/22 05/26/22 00:30 00:45 01:00 Temperature Pulse Rate 102 H 101 H 107 H Pulse Rate [ From Monitor] Respiratory 33 H 30 H 22 Rate Blood Pressure 100/70 103/57 104/59 O2 Sat by Pulse 98 97 96 Oximetry 05/26/22 05/26/22 05/26/22 01:15 01:30 01:45 Temperature Pulse Rate 108 H 112 H 114 H Pulse Rate [ From Monitor] Respiratory 30 H 25 H 32 H Rate Blood Pressure 104/55 106/58 106/63 O2 Sat by Pulse 96 96 92 Oximetry 05/26/22 05/26/22 05/26/22 02:00 02:15 02:30 Temperature Pulse Rate 110 H 110 H 113 H Pulse Rate [ From Monitor] Respiratory 24 17 29 H Rate Blood Pressure 97/60 103/60 104/68 O2 Sat by Pulse 96 96 95 Oximetry 05/26/22 05/26/22 05/26/22 02:45 03:00 03:15 Temperature Pulse Rate 111 H 112 H 107 H Pulse Rate [ From Monitor] Respiratory 26 H 34 H 21 Rate Blood Pressure 103/53 92/55 96/52 O2 Sat by Pulse 96 98 Oximetry 05/26/22 05/26/22 05/26/22 03:30 03:45 04:00 Temperature 99.6 F Pulse Rate 111 H 102 H 112 H Pulse Rate [ 110 H From Monitor] Respiratory 26 H 35 H 34 H Rate Blood Pressure 96/49 95/57 103/53 O2 Sat by Pulse 95 96 96 Oximetry 05/26/22 05/26/22 05/26/22 04:15 04:31 04:45 Temperature Pulse Rate 110 H 108 H 112 H Pulse Rate [ From Monitor] Respiratory 32 H 32 H 29 H Rate Blood Pressure 103/57 107/72 105/55 O2 Sat by Pulse 96 94 95 Oximetry 05/26/22 05/26/22 05/26/22 05:01 05:15 05:31 Temperature Pulse Rate 111 H 118 H 117 H Pulse Rate [ From Monitor] Respiratory 26 H 37 H 26 H Rate Blood Pressure 84/44 108/67 110/58 O2 Sat by Pulse 96 92 94 Oximetry 05/26/22 05/26/22 05/26/22 05:45 06:00 06:15 Temperature Pulse Rate 130 H 113 H 122 H Pulse Rate [ From Monitor] Respiratory 31 H 32 H 27 H Rate Blood Pressure 103/48 100/50 110/64 O2 Sat by Pulse 95 95 95 Oximetry 05/26/22 05/26/22 05/26/22 06:30 06:45 07:00 Temperature Pulse Rate 123 H 107 H 101 H Pulse Rate [ From Monitor] Respiratory 29 H 26 H 25 H Rate Blood Pressure 93/56 102/60 82/56 O2 Sat by Pulse 96 97 97 Oximetry 05/26/22 05/26/22 05/26/22 07:15 07:30 07:45 Temperature Pulse Rate 101 H 109 H 90 Pulse Rate [ From Monitor] Respiratory 28 H 21 22 Rate Blood Pressure 90/63 107/62 91/55 O2 Sat by Pulse 98 96 97 Oximetry 05/26/22 05/26/22 05/26/22 08:00 08:15 08:30 Temperature Pulse Rate 92 H 104 H 111 H Pulse Rate [ From Monitor] Respiratory 21 27 H 22 Rate Blood Pressure 90/50 78/57 93/51 O2 Sat by Pulse 97 97 97 Oximetry 05/26/22 05/26/22 05/26/22 08:46 09:00 09:15 Temperature Pulse Rate 117 H 111 H 131 H Pulse Rate [ From Monitor] Respiratory 32 H 32 H 33 H Rate Blood Pressure 104/68 105/66 112/64 O2 Sat by Pulse 95 97 96 Oximetry 05/26/22 05/26/22 05/26/22 09:30 09:45 09:46 Temperature Pulse Rate 113 H 159 H 156 H Pulse Rate [ From Monitor] Respiratory 37 H 36 H Rate Blood Pressure 101/62 88/56 88/56 O2 Sat by Pulse 97 97 Oximetry 05/26/22 05/26/22 05/26/22 10:00 10:15 10:30 Temperature Pulse Rate 120 H 127 H 139 H Pulse Rate [ From Monitor] Respiratory 22 27 H 23 Rate Blood Pressure 83/51 90/56 82/52 O2 Sat by Pulse 99 97 95 Oximetry 05/26/22 10:46 Temperature Pulse Rate 118 H Pulse Rate [ From Monitor] Respiratory 19 Rate Blood Pressure 93/36 O2 Sat by Pulse Oximetry - Labs CBC & Chem 7: 05/26/22 04:00 05/26/22 04:00 Labs: Abnormal lab results 05/25/22 05/26/22 05/26/22 Range/Units 11:50 00:56 04:00 WBC (4.5-11.0) K/mm3 RBC (3.65-5.03) M/mm3 MCH (28-32) pg Plt Count (140-440) K/mm3 Sodium 146 H (137-145) mmol/L Potassium 3.2 L D (3.6-5.0) mmol/L Chloride 107.9 H (98-107) mmol/L BUN 110 H (7-17) mg/dL Creatinine 2.5 H (0.6-1.2) mg/dL Glucose 139 H (65-100) mg/dL POC Glucose 136 H 143 H (70-105) mg/dL 05/26/22 05/26/22 Range/Units 04:00 04:42 WBC 16.9 H (4.5-11.0) K/mm3 RBC 3.39 L (3.65-5.03) M/mm3 MCH 33 H (28-32) pg Plt Count 106 L (140-440) K/mm3 Sodium (137-145) mmol/L Potassium (3.6-5.0) mmol/L Chloride (98-107) mmol/L BUN (7-17) mg/dL Creatinine (0.6-1.2) mg/dL Glucose (65-100) mg/dL POC Glucose 139 H (70-105) mg/dL Medications & Allergies - Medications Allergies/Adverse Reactions: Allergies Sulfa (Sulfonamide Antibiotics) Adverse Reaction (Verified 05/24/22 08:32) Unknown Active Medications: Generic Name Dose Route Start Last Admin Trade Name Freq PRN Reason Stop Dose Admin Acetaminophen 650 mg 05/24/22 14:47 Acetaminophen 650 Mg Rect Supp SD Q6H PRN Pain MILD(1-3)/Fever >100.5/KEVIN Acetaminophen 650 mg 05/24/22 21:21 Acetaminophen 325 Mg Tab PO Q4H PRN Pain MILD(1-3)/Fever >100.5/KEVIN Famotidine 10 mg 05/25/22 10:00 05/26/22 09:04 Famotidine 20 Mg/2 Ml Inj IV 10 mg BID MADAN Administration Hydromorphone HCl 0.5 mg 05/24/22 21:21 Hydromorphone 0.5 Mg/0.5 Ml Inj IV Q3H PRN Pain , Severe (7-10) Sodium Bicarbonate 150 meq/ 1,150 mls @ 100 mls/hr 05/24/22 20:00 05/26/22 09:35 Dextrose IV 0 mls/hr DIRECT MADAN Infusion NORepinephrine/NS 8 MG-250 ML 8 mg in 250 mls @ 3.75 mls/hr 05/24/22 22:00 05/26/22 10:05 Norepinephrine/Ns 8 Mg-250 Ml (Double Conc) IV 2 mcg/min TITRATE MADAN 3.75 mls/hr Titration Protocol 2 MCG/MIN Cefepime HCl 1 gm in 100 mls @ 200 mls/hr 05/26/22 18:00 Cefepime/Ns 1 Gm/100 Ml IV Q24H MADAN Protocol Amiodarone HCl 900 mg/ 500 mls @ 33.333 mls/hr 05/26/22 11:30 05/26/22 11:46 Dextrose IV 1 mg/min DIRECT MADAN 33.333 mls/hr Administration Protocol 1 MG/MIN Lactated Ringer's 1,000 mls @ 999 mls/hr 05/26/22 11:00 05/26/22 11:46 Lactated Ringers IV 05/26/22 12:00 999 mls/hr BOLUS ONE Administration Metoclopramide HCl 5 mg 05/25/22 11:00 Metoclopramide 10 Mg/2 Ml Inj IV Q6H PRN Nausea And Vomiting Metoprolol Tartrate 2.5 mg 05/26/22 10:00 05/26/22 09:46 Metoprolol Tartrate 5 Mg/5 Ml Inj IV 05/26/22 14:00 2.5 mg ONCE@1000 MADAN Administration Ondansetron HCl 4 mg 05/24/22 21:21 Ondansetron 4 Mg/2 Ml Inj IV Q3H PRN Nausea And Vomiting Sodium Chloride 10 ml 05/24/22 22:00 05/26/22 10:26 Sodium Chloride 0.9% 10 Ml Flush Syringe IV 10 ml BID MADAN Administration Sodium Chloride 10 ml 05/24/22 21:21 Sodium Chloride 0.9% 10 Ml Flush Syringe IV PRN PRN LINE FLUSH HEART Score - HEART Score Troponin: Troponin T < 0.010 ng/mL (0.00-0.029) 05/24/22 14:55
--- NOTE | 2022-05-26 12:08 | Progress Note ---
Assessment and Plan Assessment: Severe Renal Failure secondary to pre-renal Etiology vs IATN vs advanced CKD Hypertension AMS Gout Acidosis Hypokalemia Plan: Renal labs reviewed. Recent serum creatinine 2.5 today and BUN 101. UOP 550 ml recorded Baseline serum creatinine unknown Renal ultrasound reviewed- No hydronephrosis Urine lytes reviewed. Has mild proteinuria. No urine eosinophils Hypokalemia- replete electrolytes as needed, received IV KCL Hypernatremia-Start 1/2NS@ 50 ml/hr S/P Sodium bicarbonate drip Avoid nephrotoxic agents Obtain daily weights Monitor I/O's daily, monitor UOP Patient did not start HD on admission Continue to monitor renal function closely Plan of care reviewed by Dr. May Subjective Date of service: 05/26/22 Principal diagnosis: ARF, Sepsis Interval history: Patient seen lying in bed. Nurse at bedside, reports having to restart Norepi and new development of Afib. Objective - Vital Signs Vital signs: Vital Signs - 12hr 05/26/22 05/26/22 05/26/22 00:09 00:15 00:30 Temperature Pulse Rate 105 H 110 H 102 H Pulse Rate [ From Monitor] Respiratory 32 H 28 H 33 H Rate Blood Pressure 102/64 107/63 100/70 O2 Sat by Pulse 97 96 98 Oximetry 05/26/22 05/26/22 05/26/22 00:45 01:00 01:15 Temperature Pulse Rate 101 H 107 H 108 H Pulse Rate [ From Monitor] Respiratory 30 H 22 30 H Rate Blood Pressure 103/57 104/59 104/55 O2 Sat by Pulse 97 96 96 Oximetry 05/26/22 05/26/22 05/26/22 01:30 01:45 02:00 Temperature Pulse Rate 112 H 114 H 110 H Pulse Rate [ From Monitor] Respiratory 25 H 32 H 24 Rate Blood Pressure 106/58 106/63 97/60 O2 Sat by Pulse 96 92 96 Oximetry 05/26/22 05/26/22 05/26/22 02:15 02:30 02:45 Temperature Pulse Rate 110 H 113 H 111 H Pulse Rate [ From Monitor] Respiratory 17 29 H 26 H Rate Blood Pressure 103/60 104/68 103/53 O2 Sat by Pulse 96 95 Oximetry 05/26/22 05/26/22 05/26/22 03:00 03:15 03:30 Temperature Pulse Rate 112 H 107 H 111 H Pulse Rate [ From Monitor] Respiratory 34 H 21 26 H Rate Blood Pressure 92/55 96/52 96/49 O2 Sat by Pulse 96 98 95 Oximetry 05/26/22 05/26/22 05/26/22 03:45 04:00 04:15 Temperature 99.6 F Pulse Rate 102 H 112 H 110 H Pulse Rate [ 110 H From Monitor] Respiratory 35 H 34 H 32 H Rate Blood Pressure 95/57 103/53 103/57 O2 Sat by Pulse 96 96 96 Oximetry 05/26/22 05/26/22 05/26/22 04:31 04:45 05:01 Temperature Pulse Rate 108 H 112 H 111 H Pulse Rate [ From Monitor] Respiratory 32 H 29 H 26 H Rate Blood Pressure 107/72 105/55 84/44 O2 Sat by Pulse 94 95 96 Oximetry 05/26/22 05/26/22 05/26/22 05:15 05:31 05:45 Temperature Pulse Rate 118 H 117 H 130 H Pulse Rate [ From Monitor] Respiratory 37 H 26 H 31 H Rate Blood Pressure 108/67 110/58 103/48 O2 Sat by Pulse 92 94 95 Oximetry 05/26/22 05/26/22 05/26/22 06:00 06:15 06:30 Temperature Pulse Rate 113 H 122 H 123 H Pulse Rate [ From Monitor] Respiratory 32 H 27 H 29 H Rate Blood Pressure 100/50 110/64 93/56 O2 Sat by Pulse 95 95 96 Oximetry 05/26/22 05/26/22 05/26/22 06:45 07:00 07:15 Temperature Pulse Rate 107 H 101 H 101 H Pulse Rate [ From Monitor] Respiratory 26 H 25 H 28 H Rate Blood Pressure 102/60 82/56 90/63 O2 Sat by Pulse 97 97 98 Oximetry 05/26/22 05/26/22 05/26/22 07:30 07:45 08:00 Temperature Pulse Rate 109 H 90 92 H Pulse Rate [ From Monitor] Respiratory 21 22 21 Rate Blood Pressure 107/62 91/55 90/50 O2 Sat by Pulse 96 97 97 Oximetry 05/26/22 05/26/22 05/26/22 08:15 08:30 08:46 Temperature Pulse Rate 104 H 111 H 117 H Pulse Rate [ From Monitor] Respiratory 27 H 22 32 H Rate Blood Pressure 78/57 93/51 104/68 O2 Sat by Pulse 97 97 95 Oximetry 05/26/22 05/26/22 05/26/22 09:00 09:15 09:30 Temperature Pulse Rate 111 H 131 H 113 H Pulse Rate [ From Monitor] Respiratory 32 H 33 H 37 H Rate Blood Pressure 105/66 112/64 101/62 O2 Sat by Pulse 97 96 97 Oximetry 05/26/22 05/26/22 05/26/22 09:45 09:46 10:00 Temperature Pulse Rate 159 H 156 H 120 H Pulse Rate [ From Monitor] Respiratory 36 H 22 Rate Blood Pressure 88/56 88/56 83/51 O2 Sat by Pulse 97 99 Oximetry 05/26/22 05/26/22 05/26/22 10:15 10:30 10:46 Temperature Pulse Rate 127 H 139 H 118 H Pulse Rate [ From Monitor] Respiratory 27 H 23 19 Rate Blood Pressure 90/56 82/52 93/36 O2 Sat by Pulse 97 95 Oximetry - General Appearance General appearance: other (altered mentation, does not follow commands) EENT: ATNC Neck: supple Respiratory: Present: Decreased Breath Sounds Cardiology: S1S2 Gastrointestinal: normoactive bowel sounds Integumentary: warm and dry Neurologic: other (Does not follow commands, altered mentation) Musculoskeletal: other (positive edema) - Lab 05/26/22 04:00 05/26/22 04:00 Most recent lab results ABG pH 7.346 pH Units (7.350-7.450) L 05/24/22 10:25 ABG pCO2 24.9 mm Hg 05/24/22 10:25 ABG pO2 88.5 mm Hg (80.0-90.0) 05/24/22 10:25 ABG HCO3 13.3 mmol/L (20.0-26.0) L 05/24/22 10:25 ABG O2 Saturation 96.9 % (95.0-99.0) 05/24/22 10:25 Calcium 8.7 mg/dL (8.4-10.2) 05/26/22 04:00 Phosphorus 5.50 mg/dL (2.5-4.5) H 05/25/22 04:00 Urine Creatinine 144.6 mg/dL (0.1-20.0) H 05/24/22 23:00 Urine Sodium 70 mmol/L 05/24/22 23:00 Urine Total Protein 160 mg/dL (5-11.8) H 05/24/22 23:00 Medications & Allergies - Medications Allergies/Adverse Reactions: Allergies Sulfa (Sulfonamide Antibiotics) Adverse Reaction (Verified 05/24/22 08:32) Unknown Active Medications: Generic Name Dose Route Start Last Admin Trade Name Freq PRN Reason Stop Dose Admin Acetaminophen 650 mg 05/24/22 14:47 Acetaminophen 650 Mg Rect Supp MS Q6H PRN Pain MILD(1-3)/Fever >100.5/KEVIN Acetaminophen 650 mg 05/24/22 21:21 Acetaminophen 325 Mg Tab PO Q4H PRN Pain MILD(1-3)/Fever >100.5/KEVIN Famotidine 10 mg 05/25/22 10:00 05/26/22 09:04 Famotidine 20 Mg/2 Ml Inj IV 10 mg BID MADAN Administration Hydromorphone HCl 0.5 mg 05/24/22 21:21 Hydromorphone 0.5 Mg/0.5 Ml Inj IV Q3H PRN Pain , Severe (7-10) Sodium Bicarbonate 150 meq/ 1,150 mls @ 100 mls/hr 05/24/22 20:00 05/26/22 09:35 Dextrose IV 0 mls/hr DIRECT MADAN Infusion NORepinephrine/NS 8 MG-250 ML 8 mg in 250 mls @ 3.75 mls/hr 05/24/22 22:00 05/26/22 10:05 Norepinephrine/Ns 8 Mg-250 Ml (Double Conc) IV 2 mcg/min TITRATE MADAN 3.75 mls/hr Titration Protocol 2 MCG/MIN Cefepime HCl 1 gm in 100 mls @ 200 mls/hr 05/26/22 18:00 Cefepime/Ns 1 Gm/100 Ml IV Q24H MADAN Protocol Amiodarone HCl 900 mg/ 500 mls @ 33.333 mls/hr 05/26/22 11:30 05/26/22 11:46 Dextrose IV 1 mg/min DIRECT MADAN 33.333 mls/hr Administration Protocol 1 MG/MIN Metoclopramide HCl 5 mg 05/25/22 11:00 Metoclopramide 10 Mg/2 Ml Inj IV Q6H PRN Nausea And Vomiting Metoprolol Tartrate 2.5 mg 05/26/22 10:00 05/26/22 09:46 Metoprolol Tartrate 5 Mg/5 Ml Inj IV 05/26/22 14:00 2.5 mg ONCE@1000 MADAN Administration Ondansetron HCl 4 mg 05/24/22 21:21 Ondansetron 4 Mg/2 Ml Inj IV Q3H PRN Nausea And Vomiting Sodium Chloride 10 ml 05/24/22 22:00 05/26/22 10:26 Sodium Chloride 0.9% 10 Ml Flush Syringe IV 10 ml BID MADAN Administration Sodium Chloride 10 ml 05/24/22 21:21 Sodium Chloride 0.9% 10 Ml Flush Syringe IV PRN PRN LINE FLUSH
[2022-05-26] MEDS ORDERED: SODIUM CHLORIDE 0.45% 1000 ML 1,000 ML IV SCH (13:00)
--- NOTE | 2022-05-26 15:19 | Progress Note ---
Assessment and Plan Assessment and plan: This is a 72-year-old inmate with HTN admitted with severe renal failure, sepsis, altered mental status Neuro: Acute metabolic encephalopathy -CT head showed microvascular angiopathy, no clear CT evidence of acute cranial hemorrhage -CT C-spine shows no signs of acute bony trauma in the cervical spine -Reorientation as needed -Maintain sleep-wake cycle -As needed analgesia -Repeat CT head pending Cardiac: A. fib with RVR, hypotension, h/o hypertension -Cardiology consulted, appreciate recommendations -Blood pressure monitoring per protocol -Vasopressor support with Levophed -MAP goal greater than 65 -S/p 2.5 Lopressor IV push -Amiodarone drip -Echocardiogram pending Respiratory: Acute hypoxic respiratory failure -Currently on nasal cannula -SPO2 monitor per protocol -Pulmonary hygiene GI: Moderate protein calorie malnutrition -24 hours +2240 -PPI -Currently n.p.o. -BR: Colace : Severe renal failure secondary to prerenal etiology versus ATN versus advanced CKD, Hypokalemia -Nephrology consulted, appreciate recommendations -Monitor intake and output -Renally dose medications -Avoid nephrotoxic medications -FeNa 1.7 -Renal ultrasound showed no significant abnormality -s/p Sodium bicarbonate drip -Replete potassium ID: Sepsis, cellulitis -Presented with hypothermia, sinus bradycardia, acute kidney injury -Antibiotic therapy with cefepime and vancomycin -WOCN consult -Culture pending -f/u blood culture -Monitor WBC and temperature curve Endo: NAD -Avoid hypoglycemia -SSI -Accu-Cheks q. 6 Heme: Leukocytosis -Trend CBC -Transfuse hemoglobin less than 7 -SCDs to BLE while in bed MS: Acute left second through fifth rib fractures (likely chronic anterior right third and fourth rib fractures), compression deformity of T7 -CT chest shows bibasilar dependent consolidation, acute left second through fifth rib fractures (age-indeterminate but likely chronic anterior right third and fourth rib fractures), age-indeterminate compression deformity of T7, faint peripancreatic fat stranding, endometrial cavity appears prominent in size -Supportive care -Analgesic as needed -Follow-up for outpatient abdominal ultrasound The high probability of a clinically significant, sudden or life threatening deterioration of the [multi] system(s) required my full and direct attention, intervention and personal management. The aggregate critical care time was [90] minutes. This time is in addition to time spent performing reported procedures but includes the following: [x] Data Review and interpretation [x] Patient assessment and monitoring of vital signs [x] Documentation [x] Medication orders and management Disposition Plan: icu Total Time Spent with Patient (Minutes): 90 History Interval history: This is a 72-year-old inmate with hypertension presents the emergency department due to altered mental status. Patient was found soiled with feces, altered and with bradycardia in the chcf cell. In the emergency department patient was bradycardic, lab work showed leukocytosis, hyponatremia, metabolic acidosis, elevated BUN/creatinine of 4.8/151 and nephrology was consulted. Patient was noted to have cellulitis of the right wall chest and was hypothermic. She was given cefepime and Vanco in the ED and bolus with normal saline. CT chest showed bibasilar dependent consolidations likely atelectasis, acute left second through fifth rib fractures (likely chronic anterior right third and fourth rib fractures), compression deformity of T7, CT C-spine showed no acute abnormalities, CT head showed microvascular angiopathy, CXR showed no acute fi ndings, abdomen/pelvis CT showed patent peripancreatic fat stranding. Patient was admitted to the hospitalist service with consults to nephrology and [facility] with sepsis, acute metabolic encephalopathy and acute kidney injury. Hospital course to date: 05/25: Yesterday evening Vas-Cath was placed emergently due to initiation of dialysis however this was not initiated. 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 Overnight patient was started on Levophed. Patient started on cefepime and vancomycin. Wound care consult placed for chest wall cellulitis. From a CPR removed. Continues on D5W sodium bicarbonate drip. RN to unable to place NG tube. 05/26: Patient was noted to be in A. fib this morning and cardiology was consulted. Patient started on amiodarone drip and echocardiogram ordered. Renal function continues to improve slightly. Patient was started back on Levophed and antibiotics were broadened. Patient was also hypokalemic which was repleted. Hypernatremia noted and started on half-normal saline. Bicarbonate drip discontinued. Extensive conversation with family. Hospitalist Physical - Constitutional Vitals: Temp Pulse Resp BP Pulse Ox 99.6 F 118 H 19 93/36 95 05/26/22 04:00 05/26/22 10:46 05/26/22 10:46 05/26/22 10:46 05/26/22 10:30 General appearance: Present: other (Patient is stuporous, minimally responsive to noxious stimuli) - EENT Eyes: Present: PERRL, EOM intact ENT: poor dentition - Neck Neck: Present: normal ROM - Respiratory Respiratory effort: normal Respiratory: bilateral: diminished - Cardiovascular Rhythm: irregularly irregular Heart Sounds: Present: S1 & S2. Absent: systolic murmur, diastolic murmur - Extremities Extremities: no ischemia, pulses intact, pulses symmetrical, normal temperature, normal color Extremity abnormal: edema Peripheral Pulses: within normal limits - Abdominal General gastrointestinal: soft, non-tender, non-distended, normal bowel sounds - Integumentary Integumentary: Present: warm, dry - Neurologic Neurologic: other (grimaces to painful stimuli, PERRL) - Allied Health Allied health notes reviewed: nursing, RT, social work HEART Score - HEART Score Troponin: Troponin T < 0.010 ng/mL (0.00-0.029) 05/24/22 14:55 Results - Labs CBC & Chem 7: 05/26/22 04:00 05/26/22 04:00 Labs: Laboratory Last Values WBC 16.9 K/mm3 (4.5-11.0) H 05/26/22 04:00 RBC 3.39 M/mm3 (3.65-5.03) L 05/26/22 04:00 Hgb 11.2 gm/dl (10.1-14.3) 05/26/22 04:00 Hct 32.8 % (30.3-42.9) 05/26/22 04:00 MCV 97 fl (79-97) 05/26/22 04:00 MCH 33 pg (28-32) H 05/26/22 04:00 MCHC 34 % (30-34) 05/26/22 04:00 RDW 13.7 % (13.2-15.2) 05/26/22 04:00 Plt Count 106 K/mm3 (140-440) L 05/26/22 04:00 Add Manual Diff Complete 05/25/22 04:00 Total Counted 100 05/25/22 04:00 Seg Neutrophils % Ore Tester 05/24/22 09:26 Seg Neuts % (Manual) 99.0 % (40.0-70.0) H 05/25/22 04:00 Band Neutrophils % 0 % 05/25/22 04:00 Lymphocytes % (Manual) 1.0 % (13.4-35.0) L 05/25/22 04:00 Reactive Lymphs % (Man) 0 % 05/25/22 04:00 Monocytes % (Manual) 0 % (0.0-7.3) 05/25/22 04:00 Eosinophils % (Manual) 0 % (0.0-4.3) 05/25/22 04:00 Basophils % (Manual) 0 % (0.0-1.8) 05/25/22 04:00 Metamyelocytes % 0 % 05/25/22 04:00 Myelocytes % 0 % 05/25/22 04:00 Promyelocytes % 0 % 05/25/22 04:00 Blast Cells % 0 % 05/25/22 04:00 Nucleated RBC % Not Reportable 05/25/22 04:00 Seg Neutrophils # Man 21.5 K/mm3 (1.8-7.7) H 05/25/22 04:00 Band Neutrophils # 0.0 K/mm3 05/25/22 04:00 Lymphocytes # (Manual) 0.2 K/mm3 (1.2-5.4) L 05/25/22 04:00 Abs React Lymphs (Man) 0.0 K/mm3 05/25/22 04:00 Monocytes # (Manual) 0.0 K/mm3 (0.0-0.8) 05/25/22 04:00 Eosinophils # (Manual) 0.0 K/mm3 (0.0-0.4) 05/25/22 04:00 Basophils # (Manual) 0.0 K/mm3 (0.0-0.1) 05/25/22 04:00 Metamyelocytes # 0.0 K/mm3 05/25/22 04:00 Myelocytes # 0.0 K/mm3 05/25/22 04:00 Promyelocytes # 0.0 K/mm3 05/25/22 04:00 Blast Cells # 0.0 K/mm3 05/25/22 04:00 WBC Morphology Not Reportable 05/25/22 04:00 Hypersegmented Neuts Not Reportable 05/25/22 04:00 Hyposegmented Neuts Not Reportable 05/25/22 04:00 Hypogranular Neuts Not Reportable 05/25/22 04:00 Smudge Cells Not Reportable 05/25/22 04:00 Toxic Granulation Not Reportable 05/25/22 04:00 Toxic Vacuolation Not Reportable 05/25/22 04:00 Dohle Bodies Not Reportable 05/25/22 04:00 Pelger-Huet Anomaly Not Reportable 05/25/22 04:00 Raphael Rods Not Reportable 05/25/22 04:00 Platelet Estimate Consistent w auto 05/25/22 04:00 Clumped Platelets Not Reportable 05/25/22 04:00 Plt Clumps, EDTA Not Reportable 05/25/22 04:00 Large Platelets Not Reportable 05/25/22 04:00 Giant Platelets Not Reportable 05/25/22 04:00 Platelet Satelliting Not Reportable 05/25/22 04:00 Plt Morphology Comment Not Reportable 05/25/22 04:00 RBC Morphology Not Reportable 05/25/22 04:00 Dimorphic RBCs Not Reportable 05/25/22 04:00 Polychromasia Not Reportable 05/25/22 04:00 Hypochromasia Not Reportable 05/25/22 04:00 Poikilocytosis Not Reportable 05/25/22 04:00 Anisocytosis Not Reportable 05/25/22 04:00 Microcytosis Not Reportable 05/25/22 04:00 Macrocytosis Not Reportable 05/25/22 04:00 Spherocytes Not Reportable 05/25/22 04:00 Pappenheimer Bodies Not Reportable 05/25/22 04:00 Sickle Cells Not Reportable 05/25/22 04:00 Target Cells Not Reportable 05/25/22 04:00 Tear Drop Cells Not Reportable 05/25/22 04:00 Ovalocytes Not Reportable 05/25/22 04:00 Helmet Cells Not Reportable 05/25/22 04:00 Walker-Pinecroft Bodies Not Reportable 05/25/22 04:00 Alma Rings Not Reportable 05/25/22 04:00 Neftali Cells Not Reportable 05/25/22 04:00 Bite Cells Not Reportable 05/25/22 04:00 Crenated Cell Not Reportable 05/25/22 04:00 Elliptocytes Not Reportable 05/25/22 04:00 Acanthocytes (Spur) Not Reportable 05/25/22 04:00 Rouleaux Not Reportable 05/25/22 04:00 Hemoglobin C Crystals Not Reportable 05/25/22 04:00 Schistocytes Not Reportable 05/25/22 04:00 Malaria parasites Not Reportable 05/25/22 04:00 Jerad Bodies Not Reportable 05/25/22 04:00 Hem Pathologist Commnt No 05/25/22 04:00 PT 17.8 Sec. (12.2-14.9) H 05/24/22 09: INR 1.31 (0.87-1.13) H 05/24/22 09: APTT 38.0 Sec. (24.2-36.6) H 05/24/22 09:26 ABG pH 7.346 pH Units (7.350-7.450) L 05/24/22 10:25 ABG pCO2 24.9 mm Hg 05/24/22 10:25 ABG pO2 88.5 mm Hg (80.0-90.0) 05/24/22 10:25 ABG HCO3 13.3 mmol/L (20.0-26.0) L 05/24/22 10:25 ABG O2 Saturation 96.9 % (95.0-99.0) 05/24/22 10:25 ABG O2 Content 20.1 (0.0-44) 05/24/22 10:25 ABG Base Excess -10.3 mmol/L (-2.0-3.0) L 05/24/22 10:25 ABG Hemoglobin 15.0 gm/dl (12.0-16.0) 05/24/22 10:25 ABG Carboxyhemoglobin 1.1 % (0.0-5.0) 05/24/22 10:25 ABG Methemoglobin 0.5 % (0.0-1.5) 05/24/22 10:25 Oxyhemoglobin 95.3 % (95.0-99.0) 05/24/22 10:25 FiO2 21 % 05/24/22 10:25 Sodium 146 mmol/L (137-145) H 05/26/22 04:00 Potassium 3.2 mmol/L (3.6-5.0) L D 05/26/22 04:00 Chloride 107.9 mmol/L (98-107) H 05/26/22 04:00 Carbon Dioxide 24 mmol/L (22-30) D 05/26/22 04:00 Anion Gap 17 mmol/L 05/26/22 04:00 BUN 110 mg/dL (7-17) H 05/26/22 04:00 Creatinine 2.5 mg/dL (0.6-1.2) H 05/26/22 04:00 Estimated GFR 19 ml/min 05/26/22 04:00 BUN/Creatinine Ratio 44 % 05/26/22 04:00 Glucose 139 mg/dL (65-100) H 05/26/22 04:00 POC Glucose 139 mg/dL (70-105) H 05/26/22 04:42 Lactic Acid 1.70 mmol/L (0.7-2.0) 05/24/22 11:51 Calcium 8.7 mg/dL (8.4-10.2) 05/26/22 04:00 Phosphorus 5.50 mg/dL (2.5-4.5) H 05/25/22 04:00 Total Bilirubin 0.30 mg/dL (0.1-1.2) 05/25/22 04:00 AST 55 units/L (5-40) H 05/25/22 04:00 ALT 31 units/L (7-56) 05/25/22 04:00 Alkaline Phosphatase 146 units/L (35-129) H 05/25/22 04:00 Total Creatine Kinase 257 units/L (30-135) H 05/24/22 19:24 CK-MB (CK-2) 14.5 ng/mL (0.0-4.0) H 05/24/22 09:26 CK-MB (CK-2) Rel Index 4.6 (0-4) H 05/24/22 09:26 Troponin T < 0.010 ng/mL (0.00-0.029) 05/24/22 14:55 NT-Pro-B Natriuret Pep 773.1 pg/mL (0-900) 05/24/22 09:26 Total Protein 5.4 g/dL (6.3-8.2) L 05/25/22 04:00 Albumin 2.2 g/dL (3.9-5) L 05/25/22 04:00 Albumin/Globulin Ratio 0.7 % 05/25/22 04:00 TSH 2.860 mlU/mL (0.270-4.200) 05/24/22 09: Free T4 1.09 ng/dL (0.76-1.46) 05/24/22 09:26 Urine Color Yellow (Yellow) 05/24/22 10:48 Urine Turbidity Slightly cloudy (Clear) 05/24/22 10:48 Specific [place] (Man) 1.015 (1.003-1.030) 05/24/22 10:48 Ur Protein (Man) 1+ mg/dL (Negative) 05/24/22 10:48 Ur Ketones (Man) Negative (Negative) 05/24/22 10:48 Ur Nitrite (Man) Negative (Negative) 05/24/22 10:48 Urine Bilirubin (Man) Negative (Negative) 05/24/22 10:48 Leukocyte Esterase (Man) 3+ (Negative) 05/24/22 10:48 Urine WBC (Auto) 25.0 /HPF (0.0-6.0) H 05/24/22 10:48 Urine RBC (Auto) 10.0 /HPF (0.0-6.0) 05/24/22 10:48 U Epithel Cells (Auto) 100.0 /HPF (0-13.0) H 05/24/22 10:48 Urine RBC (Manual) 3+ (Negative) 05/24/22 10:48 Amorphous Crystals 3+ 05/24/22 10:48 Urine Eosinophils None seen (None Seen) 05/24/22 23:00 Urine Creatinine 144.6 mg/dL (0.1-20.0) H 05/24/22 23:00 Urine Sodium 70 mmol/L 05/24/22 23:00 Urine Total Protein 160 mg/dL (5-11.8) H 05/24/22 23:00 Random Vancomycin 20.0 ug/mL (0-40.0) 05/26/22 05:00 Hepatitis A IgM Ab Non-reactive (NonReactive) 05/24/22 20:40 Hep Bs Antigen Non-reactive (Negative) 05/24/22 20:40 Hep B Core IgM Ab Non-reactive (NonReactive) 05/24/22 20:40 Hepatitis C Antibody Non-reactive (NonReactive) 05/24/22 20:40 Microbiology: Microbiology 05/24/22 23:00 Urine,Catheterized - Indwelling Catheter Urine Culture - Preliminary 05/24/22 10:48 Urine,Clean Catch Urine Culture - Final 05/24/22 09:26 Peripheral/Venous Blood Culture - Preliminary NO GROWTH AFTER 48 HOURS 05/24/22 09:26 Peripheral/Venous Blood Culture - Preliminary NO GROWTH AFTER 48 HOURS Sweeney/IV: Voiding Method Indwelling Catheter Active Medications - Current Medications Current Medications: Generic Name Dose Route Start Last Admin Trade Name Freq PRN Reason Stop Dose Admin Acetaminophen 650 mg 05/24/22 14:47 Acetaminophen 650 Mg Rect Supp MN Q6H PRN Pain MILD(1-3)/Fever >100.5/KEVIN Acetaminophen 650 mg 05/24/22 21:21 Acetaminophen 325 Mg Tab PO Q4H PRN Pain MILD(1-3)/Fever >100.5/KEVIN Famotidine 10 mg 05/25/22 10:00 05/26/22 09:04 Famotidine 20 Mg/2 Ml Inj IV 10 mg BID MADAN Administration Hydromorphone HCl 0.5 mg 05/24/22 21:21 Hydromorphone 0.5 Mg/0.5 Ml Inj IV Q3H PRN Pain , Severe (7-10) NORepinephrine/NS 8 MG-250 ML 8 mg in 250 mls @ 3.75 mls/hr 05/24/22 22:00 05/26/22 10:05 Norepinephrine/Ns 8 Mg-250 Ml (Double Conc) IV 2 mcg/min TITRATE MADAN 3.75 mls/hr Titration Protocol 2 MCG/MIN Cefepime HCl 1 gm in 100 mls @ 200 mls/hr 05/26/22 18:00 Cefepime/Ns 1 Gm/100 Ml IV Q24H MADAN Protocol Amiodarone HCl 900 mg/ 500 mls @ 33.333 mls/hr 05/26/22 11:30 05/26/22 11:46 Dextrose IV 1 mg/min DIRECT MADAN 33.333 mls/hr Administration Protocol 1 MG/MIN Sodium Chloride 1,000 mls @ 50 mls/hr 05/26/22 13:00 Nacl 0.45% 1000 Ml IV DIRECT MADAN Metoclopramide HCl 5 mg 05/25/22 11:00 Metoclopramide 10 Mg/2 Ml Inj IV Q6H PRN Nausea And Vomiting Ondansetron HCl 4 mg 05/24/22 21:21 Ondansetron 4 Mg/2 Ml Inj IV Q3H PRN Nausea And Vomiting Sodium Chloride 10 ml 05/24/22 22:00 05/26/22 10:26 Sodium Chloride 0.9% 10 Ml Flush Syringe IV 10 ml BID MADAN Administration Sodium Chloride 10 ml 05/24/22 21:21 Sodium Chloride 0.9% 10 Ml Flush Syringe IV PRN PRN LINE FLUSH Nutrition/Malnutrition Assess - Dietary Evaluation Nutrition/Malnutrition Findings: Nutrition Notes Start: 05/25/22 14:08 Freq: Status: Active Protocol: Document 05/25/22 14:09 SUZETTE (Rec: 05/25/22 14:43 SUZETTE [id number]) Nutrition Notes Need for 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 Current Diet Cardiac Diet (since B 05/25). Labs/Tests 05/25: Cl 112.6, CO2 16, BUN 132, Crea 3.9, Glu 106. Pertinent Medications 05/25: Norepinephine 8mg, others nutritionally unremarkable. 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 Weight Status Obese Subjective/Other Information RD consult for skin risk and risk of malnutrition assessments. No repors on Pt's PO inbtake at the time, will assess at F/ U. I will prescribe Renal modification to current diet, to support Pt's OTTO condition during LOS. I will prescribe dietary supplementation to support wound healing processes during LOS. Pt is on Nasal Cannula, O2 saturation @ 99%, according to Physical Assessment History notes. Pt has dental caries, according to Physical Assessment History notes. Pt has HD on 05/24, according to Progress notes. Pt shows Rash, Redness and bruises on her chest as signs of concern for skin risk at the time, according to Physical Assessment History notes. Pt shows no signs of concern for risk of malnutrition at the time, according to Physical Assessment History notes. Percent of energy/protein needs met: Prescribed Cardiac -Renal- Diet provides for energy/ protein needs (2,230 Kcal/85 g ) during LOS; additionally, Dietary Supplements will support wound healing processes with 190 Kcal and 5 g of protein. Burn Absent Trauma Present GI Symptoms None Food Allergy No Skin Integrity/Comment Rash, Redness, bruises on chest. Minimum of two criteria No Fluid Accumulation N/A Reduced Harness Cutter Strength N/A (non-severe) Protein-Calorie Malnutrition N\A #2 Nutrition Diagnosis Increased nutrient needs ( specify in comment below) Comments: Protein to support wound healing processes. Etiology Trauma on Pt's chest. As Evidenced by Signs and Symptoms Pt shows Rash, Redness and bruises on her chest as signs of concern for skin risk at the time, according to Physical Assessment History notes, and Multiple Rib Fractures, according to Progress notes. #1 Nutrition Diagnosis Altered nutrition-related laboratory values Etiology OTTO. As Evidenced by Signs and Symptoms 05/25: Cl 112.6, CO2 16, BUN 132, Crea 3.9, Glu 106. Is patient on ventilator? No Is Patient Ambulatory and/or Out of Bed Yes REE-([place]-ambulatory/OOB) [ 1836.978 [id number]] Kcal/Kg value to use for calculation 17 Approximate Energy Requirements Using 1542 kcal/Kg Calculation Used for Recommendations Kcal/kg Additional Notes Protein: 0.8-1.2 g/Kg AdjBW; 59-89 g/day. Fluids: 1 ml/Kcal, or as per MD. Nutrition Intervention Change Diet Order: Modify current diet to Cardiac -Renal- Diet, continue as tolerated. Add Supplement/Snack (indicate name/kcal Start Nepro w/CARBSTEADY; BID. /protein ) Provides kCal: 850 Provides Protein (gm) 38 Goal #1 Support, through dietary supplementation, wound healing processes during LOS. Goal #2 Help reach and maintain acceptable chemistry lab values during LOS. Goal #3 Adjust the dietary intervention to better serve Pt's energy/protein needs and clinical conditions during LOS . Follow-Up By: 06/01/22 Additional Comments Continue monitoring food tolerance, %PO intake of meals , dietary supplements, and BM.
[2022-05-26] MEDS: CEFEPIME/NS 1 GM/100 ML 1 GM/100 ML BAG IV SCH (17:45)
[2022-05-26] MEDS: HYDROmorphone 0.5 MG/0.5 ML INJ IV PRN (17:45)
[2022-05-26 23:57] LABS: Creatine Kinase MB 10.3 ng/mL (0.0-4.0)
[2022-05-27] MEDS ORDERED: dilTIAZem 25 MG/5 ML INJ IV ONE (03:25)
[2022-05-27 05:21] LABS: Calcium 9.3 mg/dL (8.4-10.2)
[2022-05-27] MEDS: AMIODARONE 900 MG in DEXTROSE 5% IN WATER 482 ML IV SCH (06:09)
[2022-05-27] MEDS: HYDROmorphone 0.5 MG/0.5 ML INJ IV PRN ×3 (06:44→17:12)
[2022-05-27] MEDS ORDERED: MAGNESIUM SULFATE 4 GM/100 ML BAG IV ONE (08:20)
[2022-05-27] MEDS: FAMOTIDINE 20 MG/2 ML INJ IV SCH (09:02)
--- NOTE | 2022-05-27 09:43 | Progress Note ---
Assessment and Plan - Patient Problems (1) New onset atrial fibrillation Current Visit: Yes Status: Acute Plan to address problem: Patient rates are uncontrolled in 120s to 130s likely secondary to the pain now that she is more awake. Continue amiodarone. Now that her creatinine is better will add digoxin 0.25 for 2 doses we will check creatinine and digoxin level for tomorrow. Subjective Date of service: 05/27/22 Principal diagnosis: ARF, Sepsis Interval history: Patient is more awake today. Responding to commands. She states she has pain all over her body. No specific chest pain or shortness of breath. Patient is in A. fib with RVR on telemetry Objective Vital Signs Temp Pulse Pulse Resp BP Pulse Ox 05/27/22 06:00 136 H 26 H 97/58 98 05/27/22 05:30 136 H 33 H 97/64 96 05/27/22 05:00 138 H 35 H 109/69 96 05/27/22 04:30 138 H 32 H 110/70 96 05/27/22 04:00 98.2 F 140 H 138 H 35 H 107/70 96 05/27/22 03:53 154 H 124/67 05/27/22 03:45 154 H 24 124/67 97 05/27/22 03:30 145 H 22 112/75 96 05/27/22 03:15 139 H 23 114/75 95 05/27/22 03:01 134 H 26 H 125/80 96 05/27/22 02:45 140 H 34 H 92/64 96 05/27/22 02:30 125 H 19 92/64 96 05/27/22 02:15 131 H 20 102/59 95 05/27/22 02:01 139 H 19 102/60 95 05/27/22 01:45 133 H 21 107/68 99 05/27/22 01:30 133 H 18 107/68 100 05/27/22 01:15 131 H 20 93/60 97 05/27/22 01:01 133 H 20 93/60 96 05/27/22 00:45 133 H 20 90/55 95 05/27/22 00:30 134 H 18 85/60 97 05/27/22 00:15 113 H 17 92/60 98 05/27/22 00:00 98.6 F 129 H 129 H 20 92/56 98 05/26/22 23:45 138 H 17 113/69 05/26/22 23:30 133 H 18 107/61 100 05/26/22 23:15 130 H 17 112/64 98 05/26/22 23:13 132 H 20 106/60 98 05/26/22 23:00 130 H 24 106/60 98 05/26/22 22:45 140 H 22 108/70 98 05/26/22 22:31 133 H 18 101/65 86 05/26/22 22:15 131 H 21 89/69 99 05/26/22 22:00 126 H 19 98/63 97 05/26/22 21:45 129 H 20 94/67 98 05/26/22 21:30 139 H 21 102/65 96 05/26/22 21:15 140 H 22 99/70 96 05/26/22 21:00 137 H 23 105/62 97 05/26/22 20:45 141 H 19 98/68 97 05/26/22 20:40 97 05/26/22 20:30 134 H 20 97/70 99 05/26/22 20:15 121 H 19 83/59 99 05/26/22 20:00 97.4 F L 139 H 139 H 22 102/65 97 05/26/22 19:45 131 H 21 93/70 97 05/26/22 19:30 137 H 19 88/60 97 05/26/22 19:15 141 H 27 H 100/43 05/26/22 19:01 146 H 23 145/116 95 05/26/22 18:45 137 H 25 H 115/85 97 05/26/22 18:31 136 H 17 115/85 96 05/26/22 18:15 21 101/74 93 05/26/22 18:00 138 H 18 109/65 92 05/26/22 17:45 142 H 20 109/78 94 05/26/22 17:30 139 H 32 H 106/76 96 05/26/22 17:15 145 H 22 106/76 96 05/26/22 17:00 138 H 27 H 123/77 96 05/26/22 16:45 137 H 24 121/72 96 05/26/22 16:30 122 H 20 100/66 96 05/26/22 16:15 125 H 19 100/66 98 05/26/22 16:00 97.2 F L 127 H 127 H 18 107/76 98 05/26/22 15:45 132 H 15 107/67 99 05/26/22 15:30 119 H 18 102/66 05/26/22 15:15 72 19 89/57 98 05/26/22 15:00 72 19 93/58 98 05/26/22 14:45 70 18 85/54 97 05/26/22 14:30 73 19 88/57 97 05/26/22 14:15 123 H 16 107/68 99 05/26/22 14:00 117 H 13 104/73 98 05/26/22 13:45 112 H 20 92/60 99 05/26/22 13:30 107 H 18 96/59 97 05/26/22 13:15 120 H 17 86/60 99 05/26/22 13:00 120 H 19 85/51 96 05/26/22 12:45 129 H 14 87/51 98 05/26/22 12:30 128 H 19 98/71 98 05/26/22 12:15 131 H 20 88/52 98 05/26/22 12:00 97.7 F 127 H 114 H 17 100/55 99 05/26/22 11:45 131 H 17 98/71 96 05/26/22 11:30 130 H 21 90/65 98 05/26/22 11:15 139 H 24 96/46 97 05/26/22 11:00 136 H 21 91/41 97 05/26/22 10:46 118 H 19 93/36 05/26/22 10:30 139 H 23 82/52 95 05/26/22 10:15 127 H 27 H 90/56 97 05/26/22 10:00 120 H 22 83/51 99 05/26/22 09:46 156 H 88/56 05/26/22 09:45 159 H 36 H 88/56 97 - Physical Examination General: No Apparent Distress HEENT: Positive: Other (Pupils sluggish) Neck: Positive: neck supple. Negative: JVD/HJR Cardiac: Positive: irregularly irregular, S1/S2, Tachycardia Lungs: Positive: Decreased Breath Sounds Neuro: Positive: Weakness (Stuporous, generalized lethargy) Abdomen: Positive: Soft Skin: Positive: Clear Extremities: Absent: edema - Labs and Meds Cardiac Enzymes 05/26/22 Range/Units 22:33 CK-MB (CK-2) 10.3 H (0.0-4.0) ng/mL Comprehensive Metabolic Panel 05/27/22 Range/Units 04:00 Sodium 143 (137-145) mmol/L Potassium 3.8 (3.6-5.0) mmol/L Chloride 106.4 (98-107) mmol/L Carbon Dioxide 26 (22-30) mmol/L BUN 73 H (7-17) mg/dL Creatinine 1.4 H (0.6-1.2) mg/dL Glucose 123 H (65-100) mg/dL Calcium 9.3 (8.4-10.2) mg/dL - Telemetry EKG Rhythm: Atrial Fibrillation
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
[2022-05-27] MEDS: DIGOXIN 0.5 MG/2 ML INJ IV SCH ×2 (10:13→15:21)
--- NOTE | 2022-05-27 10:47 | XRay Report ---
LEFT FOOT 2 VIEW(S) INDICATION / CLINICAL INFORMATION: discoloration and pain COMPARISON: None available. FINDINGS: BONES / JOINT(S): No acute fracture or subluxation. Mild chronic degenerative changes at the great to e MTP joint. There is diffuse bony demineralization. SOFT TISSUES: No significant abnormality. ADDITIONAL FINDINGS: None. IMPRESSION: 1. Diffuse bony demineralization. 2. No acute displaced fracture. Signer Name: Bebo Keys MD Signed: 05/27/2022 10:43 AM Workstation Name: [email or web address]
--- NOTE | 2022-05-27 10:52 | XRay Report ---
LEFT WRIST 2 VIEW(S) INDICATION / CLINICAL INFORMATION: pain COMPARISON: None available. FINDINGS: BONES / JOINT(S): No acute fracture or subluxation. Moderate intercarpal and carpometacarpal degenera tive changes. Diffuse bony demineralization. SOFT TISSUES: No significant abnormality. ADDITIONAL FINDINGS: None. IMPRESSION: 1. Diffuse bony demineralization. 2. Moderate intercarpal and carpometacarpal degenerative changes. Signer Name: Bebo Keys MD Signed: 05/27/2022 10:48 AM Workstation Name: [email or web address]
[2022-05-27 11:01] LABS: Hematocrit 35.1 % (30.3-42.9); Hemoglobin 12.1 gm/dl (10.1-14.3); Mean Corpuscular HGB Conc 35 % (30-34); Mean Corpuscular Volume 97 fl (79-97); Platelet Count 110 K/mm3 (140-440); Red Blood Count 3.62 M/mm3 (3.65-5.03); Red Cell Distribution Width 13.9 % (13.2-15.2)
--- NOTE | 2022-05-27 11:05 | Progress Note ---
Assessment and Plan 72 y/o female with sepsis, likely secondary to anterior chest wall cellulitis with acute renal failure and electrolyte imbalance 05/27/22: Clinically much better than yesterday. has been released from retirement and family visited yesterday. Continue broad spec abx. Do not see a note from wound care. Blood cultures negative today. White count not checked today. Await renal assessment but would like to give more fluids. Would consider at least a 2 liter bolus of LR. Given that patient is more awake, could attempt bedside swallow today as well. Prognosis appears to be improving. 1. Continue with IVF resuscitation 2. Broad spec abx 3. Follow up renal recs 4. Altered but able to maintain airway 5. Very very guarded to poor prognosis CCT 31 minutes. Subjective Date of service: 05/27/22 Principal diagnosis: ARF, Sepsis Interval history: Patient much improved clinically today. Off pressors. Renal function is improving. Mental status is much better. Patient said good morning this morning. First time she has spoken to me since admission. Objective - Constitutional Vitals: Vital Signs - 12hr 05/26/22 05/26/22 05/26/22 23:13 23:15 23:30 Temperature Pulse Rate 132 H 130 H 133 H Pulse Rate [ From Monitor] Respiratory 20 17 18 Rate Blood Pressure 106/60 112/64 107/61 O2 Sat by Pulse 98 98 100 Oximetry 05/26/22 05/27/22 05/27/22 23:45 00:00 00:15 Temperature 98.6 F Pulse Rate 138 H 129 H 113 H Pulse Rate [ 129 H From Monitor] Respiratory 17 20 17 Rate Blood Pressure 113/69 92/56 92/60 O2 Sat by Pulse 98 98 Oximetry 05/27/22 05/27/22 05/27/22 00:30 00:45 01:01 Temperature Pulse Rate 134 H 133 H 133 H Pulse Rate [ From Monitor] Respiratory 18 20 20 Rate Blood Pressure 85/60 90/55 93/60 O2 Sat by Pulse 97 95 96 Oximetry 05/27/22 05/27/22 05/27/22 01:15 01:30 01:45 Temperature Pulse Rate 131 H 133 H 133 H Pulse Rate [ From Monitor] Respiratory 20 18 21 Rate Blood Pressure 93/60 107/68 107/68 O2 Sat by Pulse 97 100 99 Oximetry 05/27/22 05/27/22 05/27/22 02:01 02:15 02:30 Temperature Pulse Rate 139 H 131 H 125 H Pulse Rate [ From Monitor] Respiratory 19 20 19 Rate Blood Pressure 102/60 102/59 92/64 O2 Sat by Pulse 95 95 96 Oximetry 05/27/22 05/27/22 05/27/22 02:45 03:01 03:15 Temperature Pulse Rate 140 H 134 H 139 H Pulse Rate [ From Monitor] Respiratory 34 H 26 H 23 Rate Blood Pressure 92/64 125/80 114/75 O2 Sat by Pulse 96 96 95 Oximetry 05/27/22 05/27/22 05/27/22 03:30 03:45 03:53 Temperature Pulse Rate 145 H 154 H 154 H Pulse Rate [ From Monitor] Respiratory 22 24 Rate Blood Pressure 112/75 124/67 124/67 O2 Sat by Pulse 96 97 Oximetry 05/27/22 05/27/22 05/27/22 04:00 04:30 05:00 Temperature 98.2 F Pulse Rate 140 H 138 H 138 H Pulse Rate [ 138 H From Monitor] Respiratory 35 H 32 H 35 H Rate Blood Pressure 107/70 110/70 109/69 O2 Sat by Pulse 96 96 96 Oximetry 05/27/22 05/27/22 05/27/22 05:30 06:00 06:30 Temperature Pulse Rate 136 H 136 H 135 H Pulse Rate [ From Monitor] Respiratory 33 H 26 H 33 H Rate Blood Pressure 97/64 97/58 110/69 O2 Sat by Pulse 96 98 97 Oximetry 05/27/22 05/27/22 05/27/22 07:00 07:30 08:00 Temperature 98.4 F Pulse Rate 141 H 131 H 148 H Pulse Rate [ From Monitor] Respiratory 25 H 31 H 27 H Rate Blood Pressure 99/75 114/61 104/69 O2 Sat by Pulse 96 94 95 Oximetry 05/27/22 05/27/22 05/27/22 08:30 09:00 09:30 Temperature Pulse Rate 153 H 132 H 168 H Pulse Rate [ From Monitor] Respiratory 28 H 37 H 35 H Rate Blood Pressure 116/60 120/60 134/103 O2 Sat by Pulse 96 96 98 Oximetry 05/27/22 05/27/22 10:00 10:30 Temperature Pulse Rate 157 H 153 H Pulse Rate [ From Monitor] Respiratory 39 H 25 H Rate Blood Pressure 143/116 116/78 O2 Sat by Pulse 97 96 Oximetry - Labs CBC & Chem 7: 05/26/22 04:00 05/27/22 04:00 Labs: Abnormal lab results 05/26/22 05/26/22 05/26/22 Range/Units 16:31 17:55 22:33 BUN (7-17) mg/dL Creatinine (0.6-1.2) mg/dL Glucose (65-100) mg/dL POC Glucose 138 H 133 H (70-105) mg/dL Magnesium (1.7-2.3) mg/dL Total Creatine Kinase 519 H (30-135) units/L CK-MB (CK-2) 10.3 H (0.0-4.0) ng/mL 05/26/22 05/27/22 05/27/22 Range/Units 22:33 00:08 04:00 BUN 73 H (7-17) mg/dL Creatinine 1.4 H (0.6-1.2) mg/dL Glucose 123 H (65-100) mg/dL POC Glucose 129 H (70-105) mg/dL Magnesium 1.60 L (1.7-2.3) mg/dL Total Creatine Kinase (30-135) units/L CK-MB (CK-2) (0.0-4.0) ng/mL 05/27/22 Range/Units 06:00 BUN (7-17) mg/dL Creatinine (0.6-1.2) mg/dL Glucose (65-100) mg/dL POC Glucose 123 H (70-105) mg/dL Magnesium (1.7-2.3) mg/dL Total Creatine Kinase (30-135) units/L CK-MB (CK-2) (0.0-4.0) ng/mL Medications & Allergies - Medications Allergies/Adverse Reactions: Allergies Sulfa (Sulfonamide Antibiotics) Adverse Reaction (Verified 05/24/22 08:32) Unknown Home Medications: Home Medications Medication Instructions Recorded Confirmed Last Taken Type Metoprolol [Lopressor] 100 mg PO DAILY 05/27/22 05/27/22 Unknown History allopurinoL [Zyloprim] 100 mg PO QDAY 05/27/22 05/27/22 Unknown History lisinopriL [Zestril TAB] 40 mg PO QDAY 05/27/22 05/27/22 Unknown History Active Medications: Generic Name Dose Route Start Last Admin Trade Name Freq PRN Reason Stop Dose Admin Acetaminophen 650 mg 05/24/22 14:47 Acetaminophen 650 Mg Rect Supp [place] Q6H PRN Pain MILD(1-3)/Fever >100.5/KEVIN Acetaminophen 650 mg 05/24/22 21:21 Acetaminophen 325 Mg Tab PO Q4H PRN Pain MILD(1-3)/Fever >100.5/KEVIN Digoxin 0.25 mg 05/27/22 09:00 05/27/22 10:13 Digoxin 0.5 Mg/2 Ml Inj IV 05/27/22 13:01 0.25 mg Q6HR MADAN Administration Docusate Sodium 100 mg 05/27/22 22:00 Docusate Sodium 100 Mg Cap PO BID MADAN Famotidine 10 mg 05/25/22 10:00 05/27/22 09:02 Famotidine 20 Mg/2 Ml Inj IV 10 mg BID MADAN Administration Hydromorphone HCl 0.5 mg 05/24/22 21:21 05/27/22 10:20 Hydromorphone 0.5 Mg/0.5 Ml Inj IV 0.5 mg Q3H PRN Administration Pain , Severe (7-10) NORepinephrine/NS 8 MG-250 ML 8 mg in 250 mls @ 3.75 mls/hr 05/24/22 22:00 05/26/22 17:15 Norepinephrine/Ns 8 Mg-250 Ml (Double Conc) IV 0 mcg/min TITRATE MADAN 0 mls/hr Titration Protocol 2 MCG/MIN Cefepime HCl 1 gm in 100 mls @ 200 mls/hr 05/26/22 18:00 05/26/22 17:45 Cefepime/Ns 1 Gm/100 Ml IV 200 mls/hr Q24H MADAN Administration Protocol Amiodarone HCl 900 mg/ 500 mls @ 33.333 mls/hr 05/26/22 11:30 05/27/22 06:09 Dextrose IV 0.5 mg/min DIRECT MADAN 16.667 mls/hr Administration Protocol 1 MG/MIN Sodium Chloride 1,000 mls @ 50 mls/hr 05/26/22 13:00 05/26/22 19:03 Nacl 0.45% 1000 Ml IV 50 mls/hr DIRECT MADAN Administration Magnesium Sulfate 4 gm in 100 mls @ 25 mls/hr 05/27/22 08:20 05/27/22 08:56 Magnesium Sulfate 4gm/100ml IV 05/27/22 12:19 25 mls/hr ONCE ONE Administration Metoclopramide HCl 5 mg 05/25/22 11:00 Metoclopramide 10 Mg/2 Ml Inj IV Q6H PRN Nausea And Vomiting Ondansetron HCl 4 mg 05/24/22 21:21 Ondansetron 4 Mg/2 Ml Inj IV Q3H PRN Nausea And Vomiting Sodium Chloride 10 ml 05/24/22 22:00 05/27/22 09:02 Sodium Chloride 0.9% 10 Ml Flush Syringe IV 10 ml BID MADAN Administration Sodium Chloride 10 ml 05/24/22 21:21 Sodium Chloride 0.9% 10 Ml Flush Syringe IV PRN PRN LINE FLUSH HEART Score - HEART Score Troponin: Troponin T 0.012 ng/mL (0.00-0.029) 05/26/22 22:33
--- NOTE | 2022-05-27 12:02 | Progress Note ---
Assessment and Plan Assessment: Severe Renal Failure secondary to pre-renal Etiology vs IATN vs advanced CKD Hypertension AMS Gout Acidosis Hypokalemia Plan: Renal labs reviewed. Cr trending down. Baseline serum creatinine unknown Renal ultrasound reviewed- No hydronephrosis Urine lytes reviewed. Has mild proteinuria. No urine eosinophils Hypokalemia- replete electrolytes as needed Hypernatremia-Continue 1/2NS@ 50 ml/hr, improving S/P Sodium bicarbonate drip, acidosis better. Avoid nephrotoxic agents Obtain daily weights Monitor I/O's daily, monitor UOP Continue to monitor renal function closely In ICU. Subjective Date of service: 05/27/22 Principal diagnosis: ARF, Sepsis Interval history: Making urine. In ICU. Objective - Exam Narrative Exam: - General Appearance General appearance: other (altered mentation, does not follow commands) EENT: ATNC Neck: supple Respiratory: Present: Decreased Breath Sounds Cardiology: S1S2 Gastrointestinal: normoactive bowel sounds Integumentary: warm and dry Neurologic: other (Does not follow commands, altered mentation) Musculoskeletal: other (positive edema) - Vital Signs Vital signs: Vital Signs - 12hr 05/27/22 05/27/22 05/27/22 00:15 00:30 00:45 Temperature Pulse Rate 113 H 134 H 133 H Pulse Rate [ From Monitor] Respiratory 17 18 20 Rate Blood Pressure 92/60 85/60 90/55 O2 Sat by Pulse 98 97 95 Oximetry 05/27/22 05/27/22 05/27/22 01:01 01:15 01:30 Temperature Pulse Rate 133 H 131 H 133 H Pulse Rate [ From Monitor] Respiratory 20 20 18 Rate Blood Pressure 93/60 93/60 107/68 O2 Sat by Pulse 96 97 100 Oximetry 05/27/22 05/27/22 05/27/22 01:45 02:01 02:15 Temperature Pulse Rate 133 H 139 H 131 H Pulse Rate [ From Monitor] Respiratory 21 19 20 Rate Blood Pressure 107/68 102/60 102/59 O2 Sat by Pulse 99 95 95 Oximetry 05/27/22 05/27/22 05/27/22 02:30 02:45 03:01 Temperature Pulse Rate 125 H 140 H 134 H Pulse Rate [ From Monitor] Respiratory 19 34 H 26 H Rate Blood Pressure 92/64 92/64 125/80 O2 Sat by Pulse 96 96 96 Oximetry 05/27/22 05/27/22 05/27/22 03:15 03:30 03:45 Temperature Pulse Rate 139 H 145 H 154 H Pulse Rate [ From Monitor] Respiratory 23 22 24 Rate Blood Pressure 114/75 112/75 124/67 O2 Sat by Pulse 95 96 97 Oximetry 05/27/22 05/27/22 05/27/22 03:53 04:00 04:30 Temperature 98.2 F Pulse Rate 154 H 140 H 138 H Pulse Rate [ 138 H From Monitor] Respiratory 35 H 32 H Rate Blood Pressure 124/67 107/70 110/70 O2 Sat by Pulse 96 96 Oximetry 05/27/22 05/27/22 05/27/22 05:00 05:30 06:00 Temperature Pulse Rate 138 H 136 H 136 H Pulse Rate [ From Monitor] Respiratory 35 H 33 H 26 H Rate Blood Pressure 109/69 97/64 97/58 O2 Sat by Pulse 96 96 98 Oximetry 05/27/22 05/27/22 05/27/22 06:30 07:00 07:30 Temperature Pulse Rate 135 H 141 H 131 H Pulse Rate [ From Monitor] Respiratory 33 H 25 H 31 H Rate Blood Pressure 110/69 99/75 114/61 O2 Sat by Pulse 97 96 94 Oximetry 05/27/22 05/27/22 05/27/22 08:00 08:30 09:00 Temperature 98.4 F Pulse Rate 148 H 153 H 132 H Pulse Rate [ 148 H From Monitor] Respiratory 23 28 H 37 H Rate Blood Pressure 104/69 116/60 120/60 O2 Sat by Pulse 96 96 96 Oximetry 05/27/22 05/27/22 05/27/22 09:30 10:00 10:30 Temperature Pulse Rate 168 H 157 H 153 H Pulse Rate [ From Monitor] Respiratory 35 H 39 H 25 H Rate Blood Pressure 134/103 143/116 116/78 O2 Sat by Pulse 98 97 96 Oximetry 05/27/22 05/27/22 11:00 11:44 Temperature Pulse Rate 152 H Pulse Rate [ 134 H From Monitor] Respiratory 27 H 25 H Rate Blood Pressure 115/66 O2 Sat by Pulse 95 96 Oximetry - Lab 05/27/22 10:15 05/27/22 04:00 Most recent lab results ABG pH 7.346 pH Units (7.350-7.450) L 05/24/22 10:25 ABG pCO2 24.9 mm Hg 05/24/22 10:25 ABG pO2 88.5 mm Hg (80.0-90.0) 05/24/22 10:25 ABG HCO3 13.3 mmol/L (20.0-26.0) L 05/24/22 10:25 ABG O2 Saturation 96.9 % (95.0-99.0) 05/24/22 10:25 Calcium 9.3 mg/dL (8.4-10.2) 05/27/22 04:00 Phosphorus 5.50 mg/dL (2.5-4.5) H 05/25/22 04:00 Magnesium 1.60 mg/dL (1.7-2.3) L 05/26/22 22:33 Urine Creatinine 144.6 mg/dL (0.1-20.0) H 05/24/22 23:00 Urine Sodium 70 mmol/L 05/24/22 23:00 Urine Total Protein 160 mg/dL (5-11.8) H 05/24/22 23:00 Medications & Allergies - Medications Allergies/Adverse Reactions: Allergies Sulfa (Sulfonamide Antibiotics) Adverse Reaction (Verified 05/24/22 08:32) Unknown Home Medications: Home Medications Medication Instructions Recorded Confirmed Last Taken Type Benazepril HCl [Lotensin] 40 mg PO DAILY 05/27/22 05/27/22 Unknown History Metoprolol [Lopressor] 100 mg PO DAILY 05/27/22 05/27/22 Unknown History allopurinoL [Zyloprim] 100 mg PO QDAY 05/27/22 05/27/22 Unknown History Active Medications: Generic Name Dose Route Start Last Admin Trade Name Freq PRN Reason Stop Dose Admin Acetaminophen 650 mg 05/24/22 14:47 Acetaminophen 650 Mg Rect Supp [place] Q6H PRN Pain MILD(1-3)/Fever >100.5/KEVIN Acetaminophen 650 mg 05/24/22 21:21 Acetaminophen 325 Mg Tab PO Q4H PRN Pain MILD(1-3)/Fever >100.5/KEVIN Digoxin 0.25 mg 05/27/22 09:00 05/27/22 10:13 Digoxin 0.5 Mg/2 Ml Inj IV 05/27/22 13:01 0.25 mg Q6HR MADAN Administration Docusate Sodium 100 mg 05/27/22 22:00 Docusate Sodium 100 Mg Cap PO BID MADAN Famotidine 10 mg 05/25/22 10:00 05/27/22 09:02 Famotidine 20 Mg/2 Ml Inj IV 10 mg BID MADAN Administration Hydromorphone HCl 0.5 mg 05/24/22 21:21 05/27/22 10:20 Hydromorphone 0.5 Mg/0.5 Ml Inj IV 0.5 mg Q3H PRN Administration Pain , Severe (7-10) NORepinephrine/NS 8 MG-250 ML 8 mg in 250 mls @ 3.75 mls/hr 05/24/22 22:00 05/26/22 17:15 Norepinephrine/Ns 8 Mg-250 Ml (Double Conc) IV 0 mcg/min TITRATE MADAN 0 mls/hr Titration Protocol 2 MCG/MIN Cefepime HCl 1 gm in 100 mls @ 200 mls/hr 05/26/22 18:00 05/26/22 17:45 Cefepime/Ns 1 Gm/100 Ml IV 200 mls/hr Q24H MADAN Administration Protocol Amiodarone HCl 900 mg/ 500 mls @ 33.333 mls/hr 05/26/22 11:30 05/27/22 06:09 Dextrose IV 0.5 mg/min DIRECT MADAN 16.667 mls/hr Administration Protocol 1 MG/MIN Sodium Chloride 1,000 mls @ 50 mls/hr 05/26/22 13:00 05/26/22 19:03 Nacl 0.45% 1000 Ml IV 50 mls/hr DIRECT MADAN Administration Magnesium Sulfate 4 gm in 100 mls @ 25 mls/hr 05/27/22 08:20 05/27/22 08:56 Magnesium Sulfate 4gm/100ml IV 05/27/22 12:19 25 mls/hr ONCE ONE Administration Metoclopramide HCl 5 mg 05/25/22 11:00 Metoclopramide 10 Mg/2 Ml Inj IV Q6H PRN Nausea And Vomiting Ondansetron HCl 4 mg 05/24/22 21:21 Ondansetron 4 Mg/2 Ml Inj IV Q3H PRN Nausea And Vomiting Sodium Chloride 10 ml 05/24/22 22:00 05/27/22 09:02 Sodium Chloride 0.9% 10 Ml Flush Syringe IV 10 ml BID MADAN Administration Sodium Chloride 10 ml 05/24/22 21:21 Sodium Chloride 0.9% 10 Ml Flush Syringe IV PRN PRN LINE FLUSH
[2022-05-27] MEDS ORDERED: LACTATED RINGERS 1,000 ML IV ONE (12:11)
[2022-05-27] MEDS ORDERED: DEXTROSE 50% IN WATER (25GM) 50 ML SYRINGE IV PRN (12:37)
[2022-05-27] MEDS ORDERED: SODIUM CHLORIDE 0.9% 1000 ML 1,000 ML IV ONE (13:00)
[2022-05-27] MEDS ORDERED: DIGOXIN 0.5 MG/2 ML INJ IV ONE (16:00)
[2022-05-27] MEDS: INSULIN LISPRO 100 UNIT/ML SUB-Q SCH (16:31)
[2022-05-27] MEDS: CEFEPIME/NS 1 GM/100 ML 1 GM/100 ML BAG IV SCH (17:11)
[2022-05-27] MEDS ORDERED: HEPARIN 5,000 UNIT/1 ML VIAL SUB-Q SCH (22:00)
[2022-05-28] MEDS: DOCUSATE SODIUM 100 MG CAP PO SCH ×3 (00:46→22:42)
[2022-05-28] MEDS: FAMOTIDINE 20 MG/2 ML INJ IV SCH ×3 (00:46→23:34)
[2022-05-28] MEDS: INSULIN LISPRO 100 UNIT/ML SUB-Q SCH ×4 (00:46→17:00)
[2022-05-28] MEDS: HYDROmorphone 0.5 MG/0.5 ML INJ IV PRN ×2 (01:03→06:05)
[2022-05-28 07:02] LABS: Hematocrit 33.9 % (30.3-42.9); Mean Corpuscular HGB Conc 32 % (30-34); Mean Corpuscular Volume 100 fl (79-97); Red Cell Distribution Width 13.7 % (13.2-15.2)
[2022-05-28 07:07] LABS: Platelet Count 98 K/mm3 (140-440)
[2022-05-28 07:23] LABS: Calcium 9.3 mg/dL (8.4-10.2)
[2022-05-28] MEDS ORDERED: POTASSIUM PHOSPHATE 40 MMOL in SODIUM CHLORIDE 0.9% 500 ML 500 ML IV ONE (07:59)
[2022-05-28] MEDS: CEFEPIME/NS 2 GM/100 ML 2 GM/100 ML BAG IV SCH ×2 (09:45→22:43)
--- NOTE | 2022-05-28 10:21 | Progress Note ---
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 10:25 Oxyhemoglobin 95.3 % (95.0-99.0) 05/24/22 10:25 FiO2 21 % 05/24/22 10:25 Sodium 142 mmol/L (137-145) 05/31/22 08:22 Potassium 4.8 mmol/L (3.6-5.0) 05/31/22 08:22 Chloride 110.4 mmol/L (98-107) H 05/31/22 08:22 Carbon Dioxide 20 mmol/L (22-30) L 05/31/22 08:22 Anion Gap 16 mmol/L 05/31/22 08:22 BUN 45 mg/dL (7-17) H 05/31/22 08:22 Creatinine 1.0 mg/dL (0.6-1.2) 05/31/22 08:22 Estimated GFR 54 ml/min 05/31/22 08:22 BUN/Creatinine Ratio 45 % 05/31/22 08:22 Glucose 107 mg/dL (65-100) H 05/31/22 08:22 POC Glucose 97 mg/dL (70-105) 06/02/22 12:41 Lactic Acid 1.70 mmol/L (0.7-2.0) 05/24/22 11:51 Calcium 9.4 mg/dL (8.4-10.2) 05/31/22 08:22 Phosphorus 2.60 mg/dL (2.5-4.5) D 05/29/22 Unknown Magnesium 1.80 mg/dL (1.7-2.3) 05/29/22 Unknown Total Bilirubin 0.30 mg/dL (0.1-1.2) 05/25/22 04:00 AST 55 units/L (5-40) H 05/25/22 04:00 ALT 31 units/L (7-56) 05/25/22 04:00 Alkaline Phosphatase 146 units/L (35-129) H 05/25/22 04:00 Total Creatine Kinase 519 units/L (30-135) H 05/26/22 22:33 CK-MB (CK-2) 10.3 ng/mL (0.0-4.0) H 05/26/22 22:33 CK-MB (CK-2) Rel Index 1.9 (0-4) 05/26/22 22:33 Troponin T 0.012 ng/mL (0.00-0.029) 05/26/22 22:33 NT-Pro-B Natriuret Pep 773.1 pg/mL (0-900) 05/24/22 09: Total Protein 5.4 g/dL (6.3-8.2) L 05/25/22 04:00 Albumin 2.2 g/dL (3.9-5) L 05/25/22 04:00 Albumin/Globulin Ratio 0.7 % 05/25/22 04:00 TSH 2.860 mlU/mL (0.270-4.200) 05/24/22 09: Free T4 1.09 ng/dL (0.76-1.46) 05/24/22 09:26 Urine Color Yellow (Yellow) 05/24/22 10:48 Urine Turbidity Slightly cloudy (Clear) 05/24/22 10:48 Specific [place] (Man) 1.015 (1.003-1.030) 05/24/22 10:48 Ur Protein (Man) 1+ mg/dL (Negative) 05/24/22 10:48 Ur Ketones (Man) Negative (Negative) 05/24/22 10:48 Ur Nitrite (Man) Negative (Negative) 05/24/22 10:48 Urine Bilirubin (Man) Negative (Negative) 05/24/22 10:48 Leukocyte Esterase (Man) 3+ (Negative) 05/24/22 10:48 Urine WBC (Auto) 25.0 /HPF (0.0-6.0) H 05/24/22 10:48 Urine RBC (Auto) 10.0 /HPF (0.0-6.0) 05/24/22 10:48 U Epithel Cells (Auto) 100.0 /HPF (0-13.0) H 05/24/22 10:48 Urine RBC (Manual) 3+ (Negative) 05/24/22 10:48 Amorphous Crystals 3+ 05/24/22 10:48 Urine Eosinophils None seen (None Seen) 05/24/22 23:00 Urine Creatinine 144.6 mg/dL (0.1-20.0) H 05/24/22 23:00 Urine Sodium 70 mmol/L 05/24/22 23:00 Urine Total Protein 160 mg/dL (5-11.8) H 05/24/22 23:00 Random Vancomycin 6.1 ug/mL (0-40.0) 05/28/22 04:00 Digoxin 1.2 ng/mL (0.9-2.0) 05/28/22 04:00 Hepatitis A IgM Ab Non-reactive (NonReactive) 05/24/22 20:40 Hep Bs Antigen Non-reactive (Negative) 05/24/22 20:40 Hep B Core IgM Ab Non-reactive (NonReactive) 05/24/22 20:40 Hepatitis C Antibody Non-reactive (NonReactive) 05/24/22 20:40 [place]/IV: Voiding Method Toilet Nutrition/Malnutrition Assess - Dietary Evaluation Nutrition/Malnutrition Findings: Nutrition Notes Start: 05/25/22 14:08 Freq: Status: Discharge Protocol: Document 05/27/22 11:33 ALICIA (Rec: 05/27/22 12:01 [facility] [id number]) Nutrition Notes Need for Assessment generated from: MD Order Initial or Follow up Assessment Current Diagnosis Acute Kidney Injury,Sepsis, Respiratory Failure Other Pertinent Diagnosis Rib fractures, Afib, acute metabolic encephalopathy Current Diet Cardiac Diet + Nepro BID Labs/Tests BUN 73 Cr 1.4 Glu 123 Pertinent Medications Medications reviewed. Height 5 ft 5 in Weight 90.718 kg Usual Body Weight 94.5 kg [place] Body Weight (kg) 56.81 BMI 33.3 Intake Prior to Admission Poor Weight change and time frame Pt reported UBW of 94.5kg as of 6 months ago and was unsure of any unintentional wt loss at this time. -4% wt loss over the past 6 months as evidenced by current wt comparison. (Clinically insignificant for malnutrition ) Weight Status Obese Subjective/Other Information RD consult for "nutrition" per MD. Visited and spoke with RN who reported pt was unresponsive yesterday and was responsive today. Pt currently on cardiac diet + Nepro BID. Pt was able to consume 1.5 Nepros this AM. No diet % per ADL notes. Nutrition focused physical assessment performed indicating no significant muscle wasting/ subcutaneous fat loss. Will continue to monitor and follow-up per protocol. Burn Absent Trauma Absent GI Symptoms None Food Allergy No Skin Integrity/Comment Rash (Chest) reviewed per PA. Current % PO Fair (50-74%) Minimum of two criteria No Fluid Accumulation N/A Reduced Supervisor Finish End Strength N/A (non-severe) Protein-Calorie Malnutrition N\\A #2 Nutrition Diagnosis Increased nutrient needs ( specify in comment below) Diagnosis Progress(for reassessment Continues documentation) #1 Nutrition Diagnosis Altered nutrition-related laboratory values As Evidenced by Signs and Symptoms 05/27: BUN 73 Cr 1.4 Other lab values nutritionally insignificant at this time. Diagnosis Progress(for reassessment Improved documentation) Is patient on ventilator? No Is Patient Ambulatory and/or Out of Bed No REE-([place]-confined to bed) 1701.588 Kcal/Kg value to use for calculation 20 Approximate Energy Requirements Using 1814 kcal/Kg Calculation Used for Recommendations Kcal/kg Additional Notes Estimated energy requirements increased due to overall medical condition. Protein: 0.8-1.2 g/Kg AdjBW; 59-89 g/day. Fluids: 1 ml/Kcal, or as per MD. Nutrition Intervention Change Diet Order: Continue current diet as tolerated Add Supplement/Snack (indicate name/kcal Start Nepro w/CARBSTEADY; BID. /protein ) Provides kCal: 850 Provides Protein (gm) 38 Goal #1 Pt to consume >75% of estimated energy / protein needs through meals and supplementation as tolerable. Goal #2 Improve nutrition related labs through current diet order and supplements. Follow-Up By: 06/02/22 Additional Comments Monitor nutrition related labs , %PO intake, tolerance, and BM.
[2022-05-28] MEDS: VANCOMYCIN 1,250 MG in SODIUM CHLORIDE 0.9% 250ML 250 ML IV SCH (10:32)
[2022-05-28] MEDS: allopurinoL 100 MG TAB PO SCH (10:39)
[2022-05-28] MEDS: AMIODARONE 200 MG TAB PO SCH ×2 (10:51→22:41)
--- NOTE | 2022-05-28 11:52 | Progress Note ---
Assessment and Plan 72 y/o female with sepsis, likely secondary to anterior chest wall cellulitis with acute renal failure and electrolyte imbalance 05/28/22: Prednisone 60 for 3 days for gout. Avoiding saids given recent acute renal failure. HR stable. No objection to transfer to tele floor. Replace lytes. Still needs wound care to evaluate chest. At this point, would consider an ID consult for abx duration as well as possible de-escalation of therapy. Will sign off once out of unit. 05/27/22: Clinically much better than yesterday. has been released from [facility] and family visited yesterday. Continue broad spec abx. Do not see a note from wound care. Blood cultures negative today. White count not checked today. Await renal assessment but would like to give more fluids. Would consider at least a 2 liter bolus of LR. Given that patient is more awake, could attempt bedside swallow today as well. Prognosis appears to be improving. 1. Continue with IVF resuscitation 2. Broad spec abx 3. Follow up renal recs 4. Altered but able to maintain airway 5. Very very guarded to poor prognosis CCT 31 minutes. Subjective Date of service: 05/28/22 Principal diagnosis: ARF, Sepsis Interval history: Continues to improve. This am awake and complains of gout pain. Cr normal but bun is still elevated. Objective - Constitutional Vitals: Vital Signs - 12hr 05/28/22 05/28/22 05/28/22 00:00 00:01 00:15 Temperature 99.3 F Pulse Rate 121 H 114 H 144 H Pulse Rate [ 114 H From Monitor] Respiratory 31 H 32 H Rate Respiratory Rate [ Generalized] Blood Pressure 108/60 144/76 O2 Sat by Pulse 96 95 Oximetry 05/28/22 05/28/22 05/28/22 00:30 00:45 01:00 Temperature Pulse Rate 117 H 117 H 136 H Pulse Rate [ From Monitor] Respiratory 26 H 39 H 29 H Rate Respiratory Rate [ Generalized] Blood Pressure 144/76 150/86 165/105 O2 Sat by Pulse 97 98 Oximetry 05/28/22 05/28/22 05/28/22 01:15 01:30 01:45 Temperature Pulse Rate 127 H 143 H 139 H Pulse Rate [ From Monitor] Respiratory 22 24 21 Rate Respiratory Rate [ Generalized] Blood Pressure 133/78 138/74 131/73 O2 Sat by Pulse 95 92 95 Oximetry 05/28/22 05/28/22 05/28/22 02:00 02:15 02:30 Temperature Pulse Rate 145 H 115 H 107 H Pulse Rate [ From Monitor] Respiratory 24 30 H 28 H Rate Respiratory Rate [ Generalized] Blood Pressure 114/81 126/75 127/65 O2 Sat by Pulse 93 93 Oximetry 05/28/22 05/28/22 05/28/22 02:45 03:00 03:15 Temperature Pulse Rate 116 H 111 H 121 H Pulse Rate [ From Monitor] Respiratory 33 H 34 H 31 H Rate Respiratory Rate [ Generalized] Blood Pressure 142/67 142/70 133/71 O2 Sat by Pulse 93 94 93 Oximetry 05/28/22 05/28/22 05/28/22 03:30 03:45 03:49 Temperature 99.8 F H Pulse Rate 115 H 108 H Pulse Rate [ From Monitor] Respiratory 35 H 33 H Rate Respiratory Rate [ Generalized] Blood Pressure 129/79 138/82 O2 Sat by Pulse 92 93 Oximetry 05/28/22 05/28/22 05/28/22 04:00 04:15 04:30 Temperature Pulse Rate 108 H 103 H 111 H Pulse Rate [ 117 H From Monitor] Respiratory 30 H 35 H 36 H Rate Respiratory Rate [ Generalized] Blood Pressure 141/70 128/73 133/69 O2 Sat by Pulse 95 93 93 Oximetry 05/28/22 05/28/22 05/28/22 04:45 05:00 05:30 Temperature Pulse Rate 147 H 105 H 127 H Pulse Rate [ From Monitor] Respiratory 31 H 36 H 37 H Rate Respiratory Rate [ Generalized] Blood Pressure 141/82 139/72 133/76 O2 Sat by Pulse 97 95 96 Oximetry 05/28/22 05/28/22 05/28/22 05:37 06:00 06:30 Temperature 99.8 F H Pulse Rate 110 H 141 H Pulse Rate [ From Monitor] Respiratory 37 H 37 H Rate Respiratory Rate [ Generalized] Blood Pressure 134/79 136/79 O2 Sat by Pulse 95 95 Oximetry 05/28/22 05/28/22 05/28/22 07:00 07:30 07:53 Temperature 98.0 F Pulse Rate 101 H 143 H Pulse Rate [ From Monitor] Respiratory 23 16 Rate Respiratory Rate [ Generalized] Blood Pressure 136/61 154/88 O2 Sat by Pulse 95 95 Oximetry 05/28/22 05/28/2205/28/22 08:00 08:30 09:00 Temperature Pulse Rate 106 H 106 H 97 H Pulse Rate [ 105 H From Monitor] Respiratory 30 H 33 H 29 H Rate Respiratory Rate [ Generalized] Blood Pressure 146/68 150/74 130/68 O2 Sat by Pulse 97 98 97 Oximetry 05/28/22 05/28/22 05/28/22 09:30 10:00 10:30 Temperature Pulse Rate 103 H 103 H 102 H Pulse Rate [ From Monitor] Respiratory 33 H 31 H 37 H Rate Respiratory 26 H Rate [ Generalized] Blood Pressure 151/84 157/90 147/84 O2 Sat by Pulse 98 98 Oximetry 05/28/22 11:00 Temperature Pulse Rate 97 H Pulse Rate [ From Monitor] Respiratory 31 H Rate Respiratory Rate [ Generalized] Blood Pressure 140/74 O2 Sat by Pulse Oximetry - Labs CBC & Chem 7: 05/28/22 04:00 05/28/22 04:00 Labs: Abnormal lab results 05/27/22 05/27/22 05/27/22 Range/Units 12:27 16:20 17:25 WBC (4.5-11.0) K/mm3 RBC (3.65-5.03) M/mm3 MCV (79-97) fl Plt Count (140-440) K/mm3 Chloride (98-107) mmol/L BUN (7-17) mg/dL POC Glucose 272 H 204 H (70-105) mg/dL Phosphorus (2.5-4.5) mg/dL Magnesium 2.80 H (1.7-2.3) mg/dL 05/27/22 05/28/22 05/28/22 Range/Units 21:04 04:00 04:00 WBC 14.3 H (4.5-11.0) K/mm3 RBC 3.40 L (3.65-5.03) M/mm3 MCV 100 H (79-97) fl Plt Count 98 L (140-440) K/mm3 Chloride 107.1 H (98-107) mmol/L BUN 52 H (7-17) mg/dL POC Glucose 174 H (70-105) mg/dL Phosphorus 1.70 L (2.5-4.5) mg/dL Magnesium (1.7-2.3) mg/dL Medications & Allergies - Medications Allergies/Adverse Reactions: Allergies Sulfa (Sulfonamide Antibiotics) Adverse Reaction (Verified 05/24/22 08:32) Unknown Home Medications: Home Medications Medication Instructions Recorded Confirmed Last Taken Type Benazepril HCl [Lotensin] 40 mg PO DAILY 05/27/22 05/27/22 Unknown History Metoprolol [Lopressor] 100 mg PO DAILY 05/27/22 05/27/22 Unknown History allopurinoL [Zyloprim] 100 mg PO QDAY 05/27/22 05/27/22 Unknown History Active Medications: Generic Name Dose Route Start Last Admin Trade Name Freq PRN Reason Stop Dose Admin Acetaminophen 650 mg 05/24/22 14:47 Acetaminophen 650 Mg Rect Supp [place] Q6H PRN Pain MILD(1-3)/Fever >100.5/KEVIN Acetaminophen 650 mg 05/24/22 21:21 Acetaminophen 325 Mg Tab PO Q4H PRN Pain MILD(1-3)/Fever >100.5/KEVIN Allopurinol 100 mg 05/28/22 10:26 05/28/22 10:39 Allopurinol 100 Mg Tab PO 100 mg QDAY MADAN Administration Amiodarone HCl 200 mg 05/28/22 11:00 05/28/22 10:51 Amiodarone 200 Mg Tab PO 200 mg BID MADAN Administration Dextrose 50 ml 05/27/22 12:37 Dextrose 50% In Water (25gm) 50 Ml Syringe IV Q30MIN PRN Hypoglycemia Protocol Docusate Sodium 100 mg 05/27/22 22:00 05/28/22 09:47 Docusate Sodium 100 Mg Cap PO Not Given BID MADAN Famotidine 10 mg 05/25/22 10:00 05/28/22 09:47 Famotidine 20 Mg/2 Ml Inj IV 10 mg BID MADAN Administration NORepinephrine/NS 8 MG-250 ML 8 mg in 250 mls @ 3.75 mls/hr 05/24/22 22:00 05/26/22 17:15 Norepinephrine/Ns 8 Mg-250 Ml (Double Conc) IV 0 mcg/min TITRATE MADAN 0 mls/hr Titration Protocol 2 MCG/MIN Potassium Phosphate 40 mmol/ 513.3333 mls @ 83 mls/hr 05/28/22 07:59 05/28/22 08:35 Sodium Chloride IV 05/28/22 14:10 83 mls/hr ONCE ONE Administration Vancomycin HCl 1,250 mg/ 275 mls @ 166.667 mls/hr 05/28/22 10:00 05/28/22 10:32 Sodium Chloride IV 166.667 mls/hr Q24HR MADAN Administration Cefepime HCl 2 gm in 100 mls @ 200 mls/hr 05/28/22 10:00 05/28/22 09:45 Cefepime/Ns 2 Gm/100 Ml IV 200 mls/hr Q12H MADAN Administration Insulin Human Lispro 0 unit 05/27/22 16:30 05/28/22 08:35 Insulin Lispro 100 Unit/Ml SUB-Q Not Given ACHS [facility] Protocol Metoclopramide HCl 5 mg 05/25/22 11:00 Metoclopramide 10 Mg/2 Ml Inj IV Q6H PRN Nausea And Vomiting Ondansetron HCl 4 mg 05/24/22 21:21 Ondansetron 4 Mg/2 Ml Inj IV Q3H PRN Nausea And Vomiting Prednisone 60 mg 05/28/22 12:00 Prednisone 20 Mg Tab PO 05/31/22 11:59 QDAY MADAN Sodium Chloride 10 ml 05/24/22 22:00 05/28/22 09:46 Sodium Chloride 0.9% 10 Ml Flush Syringe IV 10 ml BID MADAN Administration Sodium Chloride 10 ml 05/24/22 21:21 Sodium Chloride 0.9% 10 Ml Flush Syringe IV PRN PRN LINE FLUSH HEART Score - HEART Score Troponin: Troponin T 0.012 ng/mL (0.00-0.029) 05/26/22 22:33
[2022-05-28] MEDS: predniSONE 20 MG TAB PO SCH (11:54)
--- NOTE | 2022-05-28 12:49 | Progress Note ---
Assessment and Plan Assessment: Severe Renal Failure secondary to pre-renal Etiology vs IATN vs advanced CKD Hypertension AMS Gout Acidosis Hypokalemia Plan: Renal labs reviewed. Cr trending down. Replace Phos Baseline serum creatinine unknown Renal ultrasound reviewed- No hydronephrosis Urine lytes reviewed. Has mild proteinuria. No urine eosinophils Hypokalemia- replete electrolytes as needed Hypernatremia-s/p 1/2 NS S/P Sodium bicarbonate drip, acidosis better. Avoid nephrotoxic agents Obtain daily weights Monitor I/O's daily, monitor UOP Continue to monitor renal function closely In ICU. Subjective Date of service: 05/28/22 Principal diagnosis: ARF, Sepsis Interval history: Making urine. In ICU. Objective - Exam Narrative Exam: - General Appearance General appearance: awake EENT: ATNC Neck: supple Respiratory: Present: Decreased Breath Sounds Cardiology: S1S2 Gastrointestinal: normoactive bowel sounds Integumentary: warm and dry Neurologic: awake Musculoskeletal: other (positive edema) - Vital Signs Vital signs: Vital Signs - 12hr 05/28/22 05/28/22 05/28/22 01:00 01:15 01:30 Temperature Pulse Rate 136 H 127 H 143 H Pulse Rate [ From Monitor] Respiratory 29 H 22 24 Rate Respiratory Rate [ Generalized] Blood Pressure 165/105 133/78 138/74 O2 Sat by Pulse 98 95 92 Oximetry 05/28/22 05/28/22 05/28/22 01:45 02:00 02:15 Temperature Pulse Rate 139 H 145 H 115 H Pulse Rate [ From Monitor] Respiratory 21 24 30 H Rate Respiratory Rate [ Generalized] Blood Pressure 131/73 114/81 126/75 O2 Sat by Pulse 95 93 93 Oximetry 05/28/22 05/28/22 05/28/22 02:30 02:45 03:00 Temperature Pulse Rate 107 H 116 H 111 H Pulse Rate [ From Monitor] Respiratory 28 H 33 H 34 H Rate Respiratory Rate [ Generalized] Blood Pressure 127/65 142/67 142/70 O2 Sat by Pulse 93 94 Oximetry 05/28/22 05/28/22 05/28/22 03:15 03:30 03:45 Temperature Pulse Rate 121 H 115 H 108 H Pulse Rate [ From Monitor] Respiratory 31 H 35 H 33 H Rate Respiratory Rate [ Generalized] Blood Pressure 133/71 129/79 138/82 O2 Sat by Pulse 93 92 93 Oximetry 05/28/22 05/28/22 05/28/22 03:49 04:00 04:15 Temperature 99.8 F H Pulse Rate 108 H 103 H Pulse Rate [ 117 H From Monitor] Respiratory 30 H 35 H Rate Respiratory Rate [ Generalized] Blood Pressure 141/70 128/73 O2 Sat by Pulse 95 93 Oximetry 05/28/22 05/28/22 05/28/22 04:30 04:45 05:00 Temperature Pulse Rate 111 H 147 H 105 H Pulse Rate [ From Monitor] Respiratory 36 H 31 H 36 H Rate Respiratory Rate [ Generalized] Blood Pressure 133/69 141/82 139/72 O2 Sat by Pulse 93 97 95 Oximetry 05/28/22 05/28/22 05/28/22 05:30 05:37 06:00 Temperature 99.8 F H Pulse Rate 127 H 110 H Pulse Rate [ From Monitor] Respiratory 37 H 37 H Rate Respiratory Rate [ Generalized] Blood Pressure 133/76 134/79 O2 Sat by Pulse 96 95 Oximetry 05/28/22 05/28/22 05/28/22 06:30 07:00 07:30 Temperature Pulse Rate 141 H 101 H 143 H Pulse Rate [ From Monitor] Respiratory 37 H 23 16 Rate Respiratory Rate [ Generalized] Blood Pressure 136/79 136/61 154/88 O2 Sat by Pulse 95 95 95 Oximetry 05/28/22 05/28/22 05/28/22 07:53 08:00 08:30 Temperature 98.0 F Pulse Rate 106 H 106 H Pulse Rate [ 105 H From Monitor] Respiratory 30 H 33 H Rate Respiratory Rate [ Generalized] Blood Pressure 146/68 150/74 O2 Sat by Pulse 97 98 Oximetry 05/28/22 05/28/22 05/28/22 09:00 09:30 10:00 Temperature Pulse Rate 97 H 103 H 103 H Pulse Rate [ From Monitor] Respiratory 29 H 33 H 31 H Rate Respiratory 26 H Rate [ Generalized] Blood Pressure 130/68 151/84 157/90 O2 Sat by Pulse 97 98 Oximetry 05/28/22 05/28/22 05/28/22 10:30 11:00 11:56 Temperature 98.1 F Pulse Rate 102 H 97 H Pulse Rate [ From Monitor] Respiratory 37 H 31 H Rate Respiratory Rate [ Generalized] Blood Pressure 147/84 140/74 O2 Sat by Pulse 98 Oximetry - Lab 05/28/22 04:00 05/28/22 04:00 Most recent lab results ABG pH 7.346 pH Units (7.350-7.450) L 05/24/22 10:25 ABG pCO2 24.9 mm Hg 05/24/22 10:25 ABG pO2 88.5 mm Hg (80.0-90.0) 05/24/22 10:25 ABG HCO3 13.3 mmol/L (20.0-26.0) L 05/24/22 10:25 ABG O2 Saturation 96.9 % (95.0-99.0) 05/24/22 10:25 Calcium 9.3 mg/dL (8.4-10.2) 05/28/22 04:00 Phosphorus 1.70 mg/dL (2.5-4.5) L 05/28/22 04:00 Magnesium 2.10 mg/dL (1.7-2.3) 05/28/22 04:00 Urine Creatinine 144.6 mg/dL (0.1-20.0) H 05/24/22 23:00 Urine Sodium 70 mmol/L 05/24/22 23:00 Urine Total Protein 160 mg/dL (5-11.8) H 05/24/22 23:00 Medications & Allergies - Medications Allergies/Adverse Reactions: Allergies Sulfa (Sulfonamide Antibiotics) Adverse Reaction (Verified 05/24/22 08:32) Unknown Home Medications: Home Medications Medication Instructions Recorded Confirmed Last Taken Type Benazepril HCl [Lotensin] 40 mg PO DAILY 05/27/22 05/27/22 Unknown History Metoprolol [Lopressor] 100 mg PO DAILY 05/27/22 05/27/22 Unknown History allopurinoL [Zyloprim] 100 mg PO QDAY 05/27/22 05/27/22 Unknown History Active Medications: Generic Name Dose Route Start Last Admin Trade Name Freq PRN Reason Stop Dose Admin Acetaminophen 650 mg 05/24/22 14:47 Acetaminophen 650 Mg Rect Supp [place] Q6H PRN Pain MILD(1-3)/Fever >100.5/KEVIN Acetaminophen 650 mg 05/24/22 21:21 Acetaminophen 325 Mg Tab PO Q4H PRN Pain MILD(1-3)/Fever >100.5/KEVIN Allopurinol 100 mg 05/28/22 10:26 05/28/22 10:39 Allopurinol 100 Mg Tab PO 100 mg QDAY MADAN Administration Amiodarone HCl 200 mg 05/28/22 11:00 05/28/22 10:51 Amiodarone 200 Mg Tab PO 200 mg BID MADAN Administration Dextrose 50 ml 05/27/22 12:37 Dextrose 50% In Water (25gm) 50 Ml Syringe IV Q30MIN PRN Hypoglycemia Protocol Docusate Sodium 100 mg 05/27/22 22:00 05/28/22 09:47 Docusate Sodium 100 Mg Cap PO Not Given BID MADAN Famotidine 10 mg 05/25/22 10:00 05/28/22 09:47 Famotidine 20 Mg/2 Ml Inj IV 10 mg BID MADAN Administration NORepinephrine/NS 8 MG-250 ML 8 mg in 250 mls @ 3.75 mls/hr 05/24/22 22:00 05/26/22 17:15 Norepinephrine/Ns 8 Mg-250 Ml (Double Conc) IV 0 mcg/min TITRATE MADAN 0 mls/hr Titration Protocol 2 MCG/MIN Potassium Phosphate 40 mmol/ 513.3333 mls @ 83 mls/hr 05/28/22 07:59 05/28/22 08:35 Sodium Chloride IV 05/28/22 14:10 83 mls/hr ONCE ONE Administration Vancomycin HCl 1,250 mg/ 275 mls @ 166.667 mls/hr 05/28/22 10:00 05/28/22 10:32 Sodium Chloride IV 166.667 mls/hr Q24HR MADAN Administration Cefepime HCl 2 gm in 100 mls @ 200 mls/hr 05/28/22 10:00 05/28/22 09:45 Cefepime/Ns 2 Gm/100 Ml IV 200 mls/hr Q12H MADAN Administration Insulin Human Lispro 0 unit 05/27/22 16:30 05/28/22 11:52 Insulin Lispro 100 Unit/Ml SUB-Q Not Given ACHS MADAN Protocol Metoclopramide HCl 5 mg 05/25/22 11:00 Metoclopramide 10 Mg/2 Ml Inj IV Q6H PRN Nausea And Vomiting Ondansetron HCl 4 mg 05/24/22 21:21 Ondansetron 4 Mg/2 Ml Inj IV Q3H PRN Nausea And Vomiting Prednisone 60 mg 05/28/22 12:00 05/28/22 11:54 Prednisone 20 Mg Tab PO 05/31/22 11:59 60 mg QDAY MADAN Administration Sodium Chloride 10 ml 05/24/22 22:00 05/28/22 09:46 Sodium Chloride 0.9% 10 Ml Flush Syringe IV 10 ml BID MADAN Administration Sodium Chloride 10 ml 05/24/22 21:21 Sodium Chloride 0.9% 10 Ml Flush Syringe IV PRN PRN LINE FLUSH
--- NOTE | 2022-05-28 12:53 | Progress Note ---
Assessment and Plan - Patient Problems (1) New onset atrial fibrillation Current Visit: Yes Status: Acute Plan to address problem: Patient is sinus tachycardia at this time.. Switch IV amiodarone to p.o. amiodarone 200 mg twice daily Subjective Principal diagnosis: ARF, Sepsis Interval history: Patient isawake today. Responding to commands. She states she has pain all over her body possibly from the gout. No specific chest pain or shortness of breath. Patient is in sinus tachycardia on telemetry Objective Vital Signs Temp Pulse Pulse Resp Resp BP Pulse Ox 05/28/22 11:56 98.1 F 05/28/22 11:00 97 H 31 H 140/74 05/28/22 10:30 102 H 37 H 147/84 98 05/28/22 10:00 103 H 31 H 26 H 157/90 98 05/28/22 09:30 103 H 33 H 151/84 05/28/22 09:00 97 H 29 H 130/68 97 05/28/22 08:30 106 H 33 H 150/74 98 05/28/22 08:00 106 H 105 H 30 H 146/68 97 05/28/22 07:53 98.0 F 05/28/22 07:30 143 H 16 154/88 95 05/28/22 07:00 101 H 23 136/61 95 05/28/22 06:30 141 H 37 H 136/79 95 05/28/22 06:00 110 H 37 H 134/79 95 05/28/22 05:37 99.8 F H 05/28/22 05:30 127 H 37 H 133/76 96 05/28/22 05:00 105 H 36 H 139/72 95 05/28/22 04:45 147 H 31 H 141/82 97 05/28/22 04:30 111 H 36 H 133/69 93 05/28/22 04:15 103 H 35 H 128/73 93 05/28/22 04:00 108 H 117 H 30 H 141/70 95 05/28/22 03:49 99.8 F H 05/28/22 03:45 108 H 33 H 138/82 93 05/28/22 03:30 115 H 35 H 129/79 92 05/28/22 03:15 121 H 31 H 133/71 93 05/28/22 03:00 111 H 34 H 142/70 94 05/28/22 02:45 116 H 33 H 142/67 93 05/28/22 02:30 107 H 28 H 127/65 05/28/22 02:15 115 H 30 H 126/75 93 05/28/22 02:00 145 H 24 114/81 93 05/28/22 01:45 139 H 21 131/73 95 05/28/22 01:30 143 H 24 138/74 92 05/28/22 01:15 127 H 22 133/78 95 05/28/22 01:00 136 H 29 H 165/105 98 05/28/22 00:45 117 H 39 H 150/86 97 05/28/22 00:30 117 H 26 H 144/76 05/28/22 00:15 144 H 32 H 144/76 95 05/28/22 00:01 114 H 05/28/22 00:00 99.3 F 121 H 114 H 31 H 108/60 96 05/27/22 23:45 88 21 117/65 99 05/27/22 23:30 90 19 126/64 97 05/27/22 23:15 96 H 18 108/60 95 05/27/22 23:00 107 H 18 124/64 05/27/22 22:45 101 H 18 111/56 94 05/27/22 22:30 100 H 18 124/64 97 05/27/22 22:15 111 H 16 133/74 99 05/27/22 22:00 93 H 20 132/63 98 05/27/22 21:45 98 H 24 132/66 96 05/27/22 21:30 114 H 27 H 136/81 96 05/27/22 21:15 142 H 25 H 144/82 97 05/27/22 21:00 93 H 20 140/75 96 05/27/22 20:45 116 H 29 H 143/85 96 05/27/22 20:30 142 H 24 133/79 95 05/27/22 20:26 109 H 20 134/76 97 05/27/22 20:15 113 H 22 134/76 95 05/27/22 20:14 97 05/27/22 20:00 108 H 108 H 22 139/80 96 05/27/22 19:46 110 H 22 146/75 95 05/27/22 19:30 102 H 17 112/63 95 05/27/22 19:27 98.1 F 05/27/22 19:16 103 H 18 103/64 95 05/27/22 19:00 115 H 17 116/57 95 05/27/22 18:45 140 H 19 114/80 94 05/27/22 18:00 142 H 21 115/79 94 05/27/22 17:45 135 H 20 118/70 97 05/27/22 17:30 120 H 18 118/68 95 05/27/22 17:15 141 H 23 122/72 97 05/27/22 17:00 115 H 26 H 126/84 97 05/27/22 16:45 135 H 16 128/71 96 05/27/22 16:30 141 H 32 H 128/72 95 05/27/22 16:15 141 H 26 H 127/67 91 05/27/22 16:00 98.2 F 143 H 128 H 26 H 122/70 92 05/27/22 15:45 139 H 30 H 121/68 92 05/27/22 15:30 144 H 18 129/66 94 05/27/22 15:21 140 H 118/73 05/27/22 15:20 140 H 118/73 05/27/22 15:15 146 H 24 118/73 94 05/27/22 15:00 119 H 21 127/61 95 05/27/22 14:45 143 H 26 H 124/70 05/27/22 14:30 132 H 22 123/60 94 05/27/22 14:15 131 H 22 111/65 95 05/27/22 14:00 141 H 27 H 113/69 95 05/27/22 13:45 137 H 20 119/62 95 05/27/22 13:30 98 H 20 109/65 94 05/27/22 13:15 142 H 22 107/73 98 05/27/22 13:00 133 H 25 H 107/60 94 - Physical Examination General: No Apparent Distress HEENT: Positive: Other (Pupils sluggish) Neck: Positive: neck supple. Negative: JVD/HJR Cardiac: Positive: Reg Rate and Rhythm, S1/S2, Tachycardia Lungs: Positive: clear to auscultation, Decreased Breath Sounds Neuro: Positive: Weakness (Stuporous, generalized lethargy) Abdomen: Positive: Soft Skin: Positive: Clear Extremities: Absent: edema - Labs and Meds CBC 05/28/22 Range/Units 04:00 WBC 14.3 H (4.5-11.0) K/mm3 RBC 3.40 L (3.65-5.03) M/mm3 Hgb 11.0 (10.1-14.3) gm/dl Hct 33.9 (30.3-42.9) % Plt Count 98 L (140-440) K/mm3 Comprehensive Metabolic Panel 05/28/22 Range/Units 04:00 Sodium 143 (137-145) mmol/L Potassium 3.6 (3.6-5.0) mmol/L Chloride 107.1 H (98-107) mmol/L Carbon Dioxide 25 (22-30) mmol/L BUN 52 H (7-17) mg/dL Creatinine 1.0 (0.6-1.2) mg/dL Glucose 99 (65-100) mg/dL Calcium 9.3 (8.4-10.2) mg/dL
[2022-05-28] MEDS: ACETAMINOPHEN 325 MG TAB PO PRN (13:36)
[2022-05-28] MEDS: FAMOTIDINE 10 MG TAB PO SCH (22:40)
[2022-05-29] MEDS: INSULIN LISPRO 100 UNIT/ML SUB-Q SCH ×5 (00:15→23:50)
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
[2022-05-29 08:25] LABS: Hematocrit 36.5 % (30.3-42.9); Hemoglobin 11.6 gm/dl (10.1-14.3); Mean Corpuscular HGB Conc 32 % (30-34); Mean Corpuscular Volume 101 fl (79-97); Platelet Count 111 K/mm3 (140-440); Red Cell Distribution Width 14.3 % (13.2-15.2)
[2022-05-29 08:42] LABS: Calcium 9.6 mg/dL (8.4-10.2)
[2022-05-29] MEDS: VANCOMYCIN 1,250 MG in SODIUM CHLORIDE 0.9% 250ML 250 ML IV SCH (10:07)
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
[2022-05-29] MEDS: allopurinoL 100 MG TAB PO SCH (10:48)
[2022-05-29] MEDS: DOCUSATE SODIUM 100 MG CAP PO SCH ×2 (10:48→22:19)
[2022-05-29] MEDS: AMIODARONE 200 MG TAB PO SCH ×2 (10:48→22:18)
[2022-05-29] MEDS: predniSONE 20 MG TAB PO SCH (10:48)
[2022-05-29] MEDS: FAMOTIDINE 10 MG TAB PO SCH ×2 (10:48→22:18)
[2022-05-29] MEDS: CEFEPIME/NS 2 GM/100 ML 2 GM/100 ML BAG IV SCH ×2 (10:49→22:17)
--- NOTE | 2022-05-29 11:37 | Progress Note ---
Assessment and Plan - Patient Problems (1) New onset atrial fibrillation Current Visit: Yes Status: Acute Plan to address problem: Patient is sinus tachycardia at this time.. Continue amiodarone p.o. twice daily Blood pressure is trending higher we will start metoprolol 25 twice daily. Patient will need to be started on oral anticoagulation once stable Subjective Principal diagnosis: ARF, Sepsis Interval history: Patient isawake today. Responding to commands. She states she has pain all over her body possibly from the gout. No specific chest pain or shortness of breath. Patient is in great spirits control overnight but is in sinus tachycardia now on telemetry Objective Vital Signs Temp Pulse Pulse Resp BP Pulse Ox 05/29/22 10:00 20 96 05/29/22 04:58 90 20 158/62 99 05/28/22 22:00 200 H 96 05/28/22 21:50 91 H 24 137/60 96 05/28/22 21:40 85 22 137/60 96 05/28/22 21:30 80 17 137/60 96 05/28/22 21:20 79 17 137/60 95 05/28/22 21:10 80 17 137/60 95 05/28/22 21:03 95 05/28/22 21:00 82 18 137/60 93 05/28/22 20:46 81 18 125/67 96 05/28/22 20:30 85 23 125/67 96 05/28/22 20:16 88 21 125/67 96 05/28/22 20:00 98.8 F 81 14 125/67 94 05/28/22 19:46 81 17 117/52 96 05/28/22 19:30 82 17 117/52 95 05/28/22 19:16 82 14 117/52 95 05/28/22 19:00 81 15 117/52 92 05/28/22 18:46 83 15 100/50 95 05/28/22 18:30 83 15 100/50 96 05/28/22 18:16 82 15 100/50 95 05/28/22 18:00 83 18 84/38 93 05/28/22 17:30 85 18 124/62 93 05/28/22 17:00 96 H 28 H 146/71 95 05/28/22 16:30 88 30 H 134/71 94 05/28/22 16:22 98.5 F 05/28/22 16:00 88 33 H 126/74 93 05/28/22 15:30 86 33 H 132/71 93 05/28/22 15:00 87 36 H 139/73 95 05/28/22 14:30 88 36 H 145/75 94 05/28/22 14:00 88 30 H 140/75 05/28/22 13:30 94 H 41 H 152/79 94 05/28/22 13:00 93 H 28 H 144/75 97 05/28/22 12:30 93 H 34 H 156/77 98 05/28/22 12:00 93 H 91 H 31 H 146/72 97 05/28/22 11:56 98.1 F - Physical Examination General: No Apparent Distress HEENT: Positive: Other (Pupils sluggish) Neck: Positive: neck supple. Negative: JVD/HJR Cardiac: Positive: Reg Rate and Rhythm, S1/S2, Tachycardia Lungs: Positive: Decreased Breath Sounds Neuro: Positive: Weakness (Stuporous, generalized lethargy) Abdomen: Positive: Soft Extremities: Absent: edema - Labs and Meds CBC 05/29/22 Range/Units Unknown WBC 14.1 H (4.5-11.0) K/mm3 RBC 3.60 L (3.65-5.03) M/mm3 Hgb 11.6 (10.1-14.3) gm/dl Hct 36.5 (30.3-42.9) % Plt Count 111 L (140-440) K/mm3 Comprehensive Metabolic Panel 05/29/22 Range/Units Unknown Sodium 138 (137-145) mmol/L Potassium 4.6 D (3.6-5.0) mmol/L Chloride 105.2 (98-107) mmol/L Carbon Dioxide 24 (22-30) mmol/L BUN 41 H (7-17) mg/dL Creatinine 1.0 (0.6-1.2) mg/dL Glucose 123 H (65-100) mg/dL Calcium 9.6 (8.4-10.2) mg/dL
--- NOTE | 2022-05-29 12:44 | Progress Note ---
Assessment and Plan Assessment: Severe Renal Failure secondary to pre-renal Etiology vs IATN vs advanced CKD Hypertension AMS Gout S/P Acidosis S/P Hypokalemia Plan: Renal labs reviewed. Recent serum creatinine 1.0 today and BUN 41, non-oliguric Baseline serum creatinine unknown Renal ultrasound reviewed- No hydronephrosis Urine lytes reviewed. Has mild proteinuria. No urine eosinophils S/P Sodium bicarbonate drip and 1/2NS Avoid nephrotoxic agents Obtain daily weights Monitor I/O's daily Continue to monitor renal function closely Plan of care reviewed by Dr. May Subjective Date of service: 05/29/22 Principal diagnosis: ARF, Sepsis Interval history: Patient seen lying in bed. Patient more awake and alert today. Asking for a ivan milan. Notified patient's nurse. Objective - Vital Signs Vital signs: Vital Signs - 12hr 05/29/22 05/29/22 04:58 10:00 Pulse Rate 90 Respiratory 20 20 Rate Blood Pressure 158/62 O2 Sat by Pulse 99 96 Oximetry - General Appearance General appearance: well-developed EENT: ATNC Neck: no JVD, supple Respiratory: Present: Decreased Breath Sounds Cardiology: S1S2 Gastrointestinal: normoactive bowel sounds Integumentary: warm and dry Neurologic: other (Awake and alert) Musculoskeletal: joint swelling - Lab 05/29/22 Unknown 05/29/22 Unknown Most recent lab results ABG pH 7.346 pH Units (7.350-7.450) L 05/24/22 10:25 ABG pCO2 24.9 mm Hg 05/24/22 10:25 ABG pO2 88.5 mm Hg (80.0-90.0) 05/24/22 10:25 ABG HCO3 13.3 mmol/L (20.0-26.0) L 05/24/22 10:25 ABG O2 Saturation 96.9 % (95.0-99.0) 05/24/22 10:25 Calcium 9.6 mg/dL (8.4-10.2) 05/29/22 Unknown Phosphorus 2.60 mg/dL (2.5-4.5) D 05/29/22 Unknown Magnesium 1.80 mg/dL (1.7-2.3) 05/29/22 Unknown Urine Creatinine 144.6 mg/dL (0.1-20.0) H 05/24/22 23:00 Urine Sodium 70 mmol/L 05/24/22 23:00 Urine Total Protein 160 mg/dL (5-11.8) H 05/24/22 23:00 Medications & Allergies - Medications Allergies/Adverse Reactions: Allergies Sulfa (Sulfonamide Antibiotics) Adverse Reaction (Verified 05/24/22 08:32) Unknown Home Medications: Home Medications Medication Instructions Recorded Confirmed Last Taken Type Benazepril HCl [Lotensin] 40 mg PO DAILY 05/27/22 05/27/22 Unknown History Metoprolol [Lopressor] 100 mg PO DAILY 05/27/22 05/27/22 Unknown History allopurinoL [Zyloprim] 100 mg PO QDAY 05/27/22 05/27/22 Unknown History Active Medications: Generic Name Dose Route Start Last Admin Trade Name Freq PRN Reason Stop Dose Admin Acetaminophen 650 mg 05/24/22 21:21 05/28/22 13:36 Acetaminophen 325 Mg Tab PO 650 mg Q4H PRN Administration Pain MILD(1-3)/Fever >100.5/KEVIN Allopurinol 100 mg 05/28/22 10:26 05/29/22 10:48 Allopurinol 100 Mg Tab PO 100 mg QDAY MADAN Administration Amiodarone HCl 200 mg 05/28/22 11:00 05/29/22 10:48 Amiodarone 200 Mg Tab PO 200 mg BID MADAN Administration Dextrose 50 ml 05/27/22 12:37 Dextrose 50% In Water (25gm) 50 Ml Syringe IV Q30MIN PRN Hypoglycemia Protocol Docusate Sodium 100 mg 05/27/22 22:00 05/29/22 10:48 Docusate Sodium 100 Mg Cap PO 100 mg BID MADAN Administration Famotidine 10 mg 05/28/22 22:17 05/29/22 10:48 Famotidine 10 Mg Tab PO 10 mg BID MADAN Administration Fluconazole 200 mg 05/29/22 11:00 Fluconazole 200 Mg Tab PO 06/05/22 10:59 QDAY MADAN Protocol Vancomycin HCl 1,250 mg/ 275 mls @ 166.667 mls/hr 05/28/22 10:00 05/28/22 10:32 Sodium Chloride IV 166.667 mls/hr Q24HR MADAN Administration Cefepime HCl 2 gm in 100 mls @ 200 mls/hr 05/28/22 10:00 05/29/22 10:49 Cefepime/Ns 2 Gm/100 Ml IV 200 mls/hr Q12H MADAN Administration Insulin Human Lispro 0 unit 05/27/22 16:30 05/29/22 00:15 Insulin Lispro 100 Unit/Ml SUB-Q Not Given ACHS [facility] Protocol Metoclopramide HCl 5 mg 05/25/22 11:00 Metoclopramide 10 Mg/2 Ml Inj IV Q6H PRN Nausea And Vomiting Metoprolol Tartrate 25 mg 05/29/22 12:00 Metoprolol Tartrate 25 Mg Tab PO BID MADAN Ondansetron HCl 4 mg 05/24/22 21:21 Ondansetron 4 Mg/2 Ml Inj IV Q3H PRN Nausea And Vomiting Prednisone 60 mg 05/28/22 12:00 05/29/22 10:48 Prednisone 20 Mg Tab PO 05/31/22 11:59 60 mg QDAY MADAN Administration Sodium Chloride 10 ml 05/24/22 22:00 05/29/22 10:49 Sodium Chloride 0.9% 10 Ml Flush Syringe IV 10 ml BID MADAN Administration Sodium Chloride 10 ml 05/24/22 21:21 Sodium Chloride 0.9% 10 Ml Flush Syringe IV PRN PRN LINE FLUSH
[2022-05-29] MEDS: FLUCONAZOLE 200 MG TAB PO SCH (14:49)
[2022-05-29] MEDS: METOPROLOL TARTRATE 25 MG TAB PO SCH ×2 (15:05→22:18)
[2022-05-30] MEDS: INSULIN LISPRO 100 UNIT/ML SUB-Q SCH ×4 (08:50→22:42)
[2022-05-30] MEDS: CEFEPIME/NS 2 GM/100 ML 2 GM/100 ML BAG IV SCH ×2 (09:45→22:41)
[2022-05-30] MEDS: predniSONE 20 MG TAB PO SCH (10:44)
[2022-05-30] MEDS: AMIODARONE 200 MG TAB PO SCH ×2 (10:44→22:44)
[2022-05-30] MEDS: allopurinoL 100 MG TAB PO SCH (10:45)
[2022-05-30] MEDS: DOCUSATE SODIUM 100 MG CAP PO SCH ×2 (10:45→22:41)
[2022-05-30] MEDS: METOPROLOL TARTRATE 25 MG TAB PO SCH ×2 (10:47→22:41)
[2022-05-30] MEDS: VANCOMYCIN 1,250 MG in SODIUM CHLORIDE 0.9% 250ML 250 ML IV SCH (10:47)
[2022-05-30] MEDS: FLUCONAZOLE 200 MG TAB PO SCH (10:48)
--- NOTE | 2022-05-30 11:01 | Progress Note ---
Assessment and Plan Cultures: 05/24/2022 blood culture: No growth 05/24/2022 urine culture: Contaminated 05/24/2022 repeat urine culture: in process A/P: 72-year-old female with gout and hypertension was admitted to the hospital on 05/24/2022 after being brought from nursing home due to altered mental status: #Sepsis: Admitted with leukocytosis, hypotension, hypothermia, etiology probably chest wall cellulitis, no other source identified. Doubt UTI, urine sample appeared contaminated with very high epithelial cells. Chest x-ray without pneumonia, ? Dependent atelectasis. CT chest abdomen pelvis without obvious infectious process. #Anterior chest wall cellulitis, superficial wounds: Etiology unclear, ? Macerated skin, possible topical fungal infection #OTTO: Improved. #Atrial fibrillation with RVR: Cardiology following. #Multiple rib fractures, gout Recs: Continue IV cefepime, vancomycin and PO fluconazole for now Recheck WBC, when improved, anticipate switch to p.o. Keflex, doxycycline, fluconazole Continue wound care to anterior chest Renal function has improved, consider removing her trialysis catheter Ajith Helm MD, FACP, [facility] O: [phone] F: [phone] C: [phone] Subjective Date of service: 05/30/22 Principal diagnosis: ARF, Sepsis Interval history: No fever. No complaints. Tolerating antimicrobials. Denies nausea, vomiting. Objective - Exam Narrative Exam: Physical Exam: Constitutional: Alert, cooperative. No acute distress Head, Ears, Nose: Normocephalic, atraumatic. External ears, nose normal Eyes: Conjunctivae/corneas clear. No icterus. No ptosis. Neck: Supple, no meningeal signs Cardiovascular: S1, S2 + Respiratory: Good air entry, clear to auscultation bilaterally GI: Soft, non-tender; bowel sounds normal. No peritoneal signs Musculoskeletal: No pedal edema, no cyanosis. Skin: anterior chest wall / inframammary region with superficial wounds, macerated areas. also other areas of bruises/ecchymoses Hem/Lymphatic: No palpable cervical or supraclavicular nodes. No lymphangitis Psych: Mood ok. Affect normal Neurological: Awake, alert, oriented. No gross abnormality - Constitutional Vitals: Vital Signs Temp Pulse Resp BP Pulse Ox 97.7 F 72 18 161/73 97 05/30/22 03:20 05/30/22 03:20 05/30/22 03:20 05/30/22 03:20 05/30/22 08:38 Temperature -Last 24 Hours Temperature 97.7 F Temperature 97.5 F Temperature 98.1 F Temperature 97.5 F - Labs CBC & Chem 7: 05/29/22 Unknown 05/29/22 Unknown Labs: Abnormal lab results 05/29/22 05/29/22 05/29/22 Range/Units 08:46 12:44 17:10 POC Glucose 134 H 217 H 193 H (70-105) mg/dL 05/29/22 Range/Units 23:11 POC Glucose 171 H (70-105) mg/dL
[2022-05-30] MEDS: FAMOTIDINE 10 MG TAB PO SCH (11:45)
--- NOTE | 2022-05-30 11:53 | Progress Note ---
Assessment and Plan Assessment: Severe Renal Failure secondary to pre-renal Etiology vs IATN vs advanced CKD Hypertension AMS Gout S/P Acidosis S/P Hypokalemia Plan: No new renal labs noted for today. Serum creatinine yesterday was 1.0, non- oliguric Baseline serum creatinine unknown Renal ultrasound reviewed- No hydronephrosis Urine lytes reviewed. Has mild proteinuria. No urine eosinophils S/P Sodium bicarbonate drip and 1/2NS Avoid nephrotoxic agents Obtain daily weights Monitor I/O's daily Continue to monitor renal function Plan of care reviewed by Dr. May Subjective Date of service: 05/30/22 Principal diagnosis: ARF, Sepsis Interval history: Patient seen lying in bed. Patient awake and alert talking on phone. Objective - Vital Signs Vital signs: Vital Signs - 12hr 05/30/22 05/30/22 05/30/22 00:43 03:20 08:38 Temperature 97.7 F Pulse Rate 72 Respiratory 18 Rate Blood Pressure 161/73 O2 Sat by Pulse 97 97 97 Oximetry - General Appearance General appearance: well-developed, appears stated age EENT: ATNC Neck: no JVD, supple Respiratory: Present: Decreased Breath Sounds Cardiology: S1S2 Gastrointestinal: normoactive bowel sounds Integumentary: warm and dry Neurologic: other (Awake and alert) Musculoskeletal: joint swelling, other (edema to upper and lower extremities) - Lab 05/29/22 Unknown 05/29/22 Unknown Most recent lab results ABG pH 7.346 pH Units (7.350-7.450) L 05/24/22 10:25 ABG pCO2 24.9 mm Hg 05/24/22 10:25 ABG pO2 88.5 mm Hg (80.0-90.0) 05/24/22 10:25 ABG HCO3 13.3 mmol/L (20.0-26.0) L 05/24/22 10:25 ABG O2 Saturation 96.9 % (95.0-99.0) 05/24/22 10:25 Calcium 9.6 mg/dL (8.4-10.2) 05/29/22 Unknown Phosphorus 2.60 mg/dL (2.5-4.5) D 05/29/22 Unknown Magnesium 1.80 mg/dL (1.7-2.3) 05/29/22 Unknown Urine Creatinine 144.6 mg/dL (0.1-20.0) H 05/24/22 23:00 Urine Sodium 70 mmol/L 05/24/22 23:00 Urine Total Protein 160 mg/dL (5-11.8) H 05/24/22 23:00 Medications & Allergies - Medications Allergies/Adverse Reactions: Allergies Sulfa (Sulfonamide Antibiotics) Adverse Reaction (Verified 05/24/22 08:32) Unknown Home Medications: Home Medications Medication Instructions Recorded Confirmed Last Taken Type Benazepril HCl [Lotensin] 40 mg PO DAILY 05/27/22 05/27/22 Unknown History Metoprolol [Lopressor] 100 mg PO DAILY 05/27/22 05/27/22 Unknown History allopurinoL [Zyloprim] 100 mg PO QDAY 05/27/22 05/27/22 Unknown History Active Medications: Generic Name Dose Route Start Last Admin Trade Name Freq PRN Reason Stop Dose Admin Acetaminophen 650 mg 05/24/22 21:21 05/28/22 13:36 Acetaminophen 325 Mg Tab PO 650 mg Q4H PRN Administration Pain MILD(1-3)/Fever >100.5/KEVIN Allopurinol 100 mg 05/28/22 10:26 05/30/22 10:45 Allopurinol 100 Mg Tab PO 100 mg QDAY MADAN Administration Amiodarone HCl 200 mg 05/28/22 11:00 05/30/22 10:44 Amiodarone 200 Mg Tab PO 200 mg BID MADAN Administration Dextrose 50 ml 05/27/22 12:37 Dextrose 50% In Water (25gm) 50 Ml Syringe IV Q30MIN PRN Hypoglycemia Protocol Docusate Sodium 100 mg 05/27/22 22:00 05/30/22 10:45 Docusate Sodium 100 Mg Cap PO 100 mg BID MADAN Administration Famotidine 10 mg 05/28/22 22:17 05/29/22 22:18 Famotidine 10 Mg Tab PO 10 mg BID MADAN Administration Fluconazole 200 mg 05/29/22 11:00 05/30/22 10:48 Fluconazole 200 Mg Tab PO 06/04/22 10:01 200 mg QDAY MADAN Administration Protocol Vancomycin HCl 1,250 mg/ 275 mls @ 166.667 mls/hr 05/28/22 10:00 05/30/22 10 :47 Sodium Chloride IV 166.667 mls/hr Q24HR [facility]ADAN Administration Cefepime HCl 2 gm in 100 mls @ 200 mls/hr 05/28/22 10:00 05/29/22 22:17 Cefepime/Ns 2 Gm/100 Ml IV 200 mls/hr Q12H MADAN Administration Insulin Human Lispro 0 unit 05/27/22 16:30 05/30/22 08:50 Insulin Lispro 100 Unit/Ml SUB-Q Not Given ACHS [facility] Protocol Metoclopramide HCl 5 mg 05/25/22 11:00 Metoclopramide 10 Mg/2 Ml Inj IV Q6H PRN Nausea And Vomiting Metoprolol Tartrate 25 mg 05/29/22 12:00 05/30/22 10:47 Metoprolol Tartrate 25 Mg Tab PO 25 mg BID MADAN Administration Ondansetron HCl 4 mg 05/24/22 21:21 Ondansetron 4 Mg/2 Ml Inj IV Q3H PRN Nausea And Vomiting Prednisone 60 mg 05/28/22 12:00 05/30/22 10:44 Prednisone 20 Mg Tab PO 05/31/22 11:59 60 mg QDAY MADAN Administration Sodium Chloride 10 ml 05/24/22 22:00 05/30/22 10:50 Sodium Chloride 0.9% 10 Ml Flush Syringe IV 10 ml BID MADAN Administration Sodium Chloride 10 ml 05/24/22 21:21 Sodium Chloride 0.9% 10 Ml Flush Syringe IV PRN PRN LINE FLUSH
--- NOTE | 2022-05-30 14:07 | Progress Note ---
Assessment and Plan - Patient Problems (1) New onset atrial fibrillation Current Visit: Yes Status: Acute Plan to address problem: Patient admitted with sepsis, altered mental status and multiple metabolic derangements, she looks and feels much better. Interval finding of rapid, paroxysmal atrial fibrillation while in the CCU. Will continue rhythm control therapy with amiodarone, and a predischarge addition of oral anticoagulation with a DOAC. Subjective Date of service: 05/30/22 Principal diagnosis: ARF, Sepsis, paroxysmal atrial fibrillation Interval history: 72-year-old woman, currently incarcerated, admitted to the hospital with altered mental status and sepsis. Intercurrent finding of rapid atrial fibrillation, now stable sinus rhythm on amiodarone therapy. Today, patient is a stable sinus rhythm at 80. Echocardiogram on this presentation shows normal to hyperdynamic left ventricular systolic function, ejection fraction greater than 70%. Objective Vital Signs Temp Pulse Resp BP Pulse Ox 05/30/22 08:38 97 05/30/22 03:20 97.7 F 72 18 161/73 97 05/30/22 00:43 97 05/29/22 23:25 97.5 F L 71 16 156/72 97 05/29/22 22:18 79 96/72 05/29/22 22:00 98 05/29/22 19:31 98.1 F 79 18 96/72 96 05/29/22 15:42 96 - Physical Examination General: No Apparent Distress HEENT: Positive: PERRL Neck: Positive: neck supple. Negative: JVD/HJR Cardiac: Positive: Reg Rate and Rhythm Lungs: Positive: Decreased Breath Sounds Neuro: Positive: Grossly Intact Abdomen: Positive: Soft Skin: Positive: Clear Extremities: Absent: edema
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
[2022-05-30] MEDS: ACETAMINOPHEN 325 MG TAB PO PRN (16:20)
[2022-05-31] MEDS: FAMOTIDINE 10 MG TAB PO SCH ×3 (01:35→22:20)
[2022-05-31] MEDS: INSULIN LISPRO 100 UNIT/ML SUB-Q SCH ×4 (08:15→23:12)
[2022-05-31 08:55] LABS: Hematocrit 33.8 % (30.3-42.9); Hemoglobin 11.3 gm/dl (10.1-14.3); Mean Corpuscular HGB Conc 33 % (30-34); Mean Corpuscular Volume 99 fl (79-97)
[2022-05-31 08:56] LABS: Platelet Count 96 K/mm3 (140-440)
[2022-05-31 09:11] LABS: Calcium 9.4 mg/dL (8.4-10.2)
--- NOTE | 2022-05-31 09:30 | Electrocardiograph Report ---
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
[2022-05-31] MEDS: VANCOMYCIN 1,250 MG in SODIUM CHLORIDE 0.9% 250ML 250 ML IV SCH (10:00)
[2022-05-31] MEDS: CEFEPIME/NS 2 GM/100 ML 2 GM/100 ML BAG IV SCH (10:00)
[2022-05-31] MEDS: FLUCONAZOLE 200 MG TAB PO SCH (10:33)
[2022-05-31] MEDS: allopurinoL 100 MG TAB PO SCH (10:34)
[2022-05-31] MEDS: DOCUSATE SODIUM 100 MG CAP PO SCH ×2 (10:34→22:19)
[2022-05-31] MEDS: AMIODARONE 200 MG TAB PO SCH (10:34)
[2022-05-31] MEDS: predniSONE 20 MG TAB PO SCH (10:34)
[2022-05-31] MEDS: METOPROLOL TARTRATE 25 MG TAB PO SCH ×2 (10:35→22:20)
--- NOTE | 2022-05-31 10:47 | Progress Note ---
Assessment and Plan Cultures: 05/24/2022 blood culture: No growth 05/24/2022 urine culture: Contaminated 05/24/2022 repeat urine culture: in process A/P: 72-year-old female with gout and hypertension was admitted to the hospital on 05/24/2022 after being brought from senior care due to altered mental status: #Sepsis: Admitted with leukocytosis, hypotension, hypothermia, etiology probably chest wall cellulitis, no other source identified. Doubt UTI, urine sample appeared contaminated with very high epithelial cells. Chest x-ray without pneumonia, ? Dependent atelectasis. CT chest abdomen pelvis without obvious infectious process. #Anterior chest wall cellulitis, superficial wounds: Etiology unclear, ? Macerated skin, possible topical fungal infection #OTTO: Improved. #Atrial fibrillation with RVR: Cardiology following. #Multiple rib fractures, gout Recs: Leukocytosis is likely from steroids, abx switched to PO Keflex, doxycycline, fluconazole x 5 days Continue wound care to anterior chest Renal function has improved, consider removing her trialysis catheter Will sign off. Please call with questions. Ajith Helm MD, FACP, [facility] O: [phone] F: [phone] C: [phone] Subjective Date of service: 05/31/22 Principal diagnosis: ARF, Sepsis, paroxysmal atrial fibrillation Interval history: No fever. Chest wall pain from wounds is stable. Denies nausea, vomiting. Objective - Exam Narrative Exam: Physical Exam: Constitutional: Alert, cooperative. No acute distress Head, Ears, Nose: Normocephalic, atraumatic. External ears, nose normal Eyes: Conjunctivae/corneas clear. No icterus. No ptosis. Neck: Supple, no meningeal signs Cardiovascular: S1, S2 + Respiratory: Good air entry, clear to auscultation bilaterally GI: Soft, non-tender; bowel sounds normal. No peritoneal signs Musculoskeletal: No pedal edema, no cyanosis. Skin: anterior chest wall / inframammary region with superficial wounds, macerated areas. also other areas of bruises/ecchymoses Hem/Lymphatic: No palpable cervical or supraclavicular nodes. No lymphangitis Psych: Mood ok. Affect normal Neurological: Awake, alert, oriented. No gross abnormality - Constitutional Vitals: Vital Signs Temp Pulse Resp BP Pulse Ox 97.7 F 66 20 170/72 94 05/31/22 04:20 05/31/22 04:20 05/31/22 04:20 05/31/22 04:20 05/31/22 10:00 Temperature -Last 24 Hours Temperature 97.7 F Temperature 98.1 F Temperature 98.1 F Temperature 97.5 F - Labs CBC & Chem 7: 05/31/22 08:22 05/31/22 08:22 Labs: Abnormal lab results 05/30/22 05/30/22 05/30/22 Range/Units 08:31 11:32 16:03 WBC (4.5-11.0) K/mm3 RBC (3.65-5.03) M/mm3 MCV (79-97) fl MCH (28-32) pg Plt Count (140-440) K/mm3 Chloride (98-107) mmol/L Carbon Dioxide (22-30) mmol/L BUN (7-17) mg/dL Glucose (65-100) mg/dL POC Glucose 107 H 182 H 181 H (70-105) mg/dL 05/30/22 05/31/22 05/31/22 Range/Units 20:11 08:22 08:22 WBC 16.8 H (4.5-11.0) K/mm3 RBC 3.40 L (3.65-5.03) M/mm3 MCV 99 H (79-97) fl MCH 33 H (28-32) pg Plt Count 96 L (140-440) K/mm3 Chloride 110.4 H (98-107) mmol/L Carbon Dioxide 20 L (22-30) mmol/L BUN 45 H (7-17) mg/dL Glucose 107 H (65-100) mg/dL POC Glucose 234 H (70-105) mg/dL
--- NOTE | 2022-05-31 12:32 | Progress Note ---
Assessment and Plan Assessment: Severe Renal Failure secondary to pre-renal Etiology vs IATN vs advanced CKD Hypertension AMS Gout S/P Acidosis S/P Hypokalemia Plan: Renal labs reviewed. Serum creatinine stable at 1.0, non-oliguric Ordered for vasc cath removal Baseline serum creatinine unknown Renal ultrasound reviewed- No hydronephrosis Urine lytes reviewed. Has mild proteinuria. No urine eosinophils S/P Sodium bicarbonate drip and 1/2NS Avoid nephrotoxic agents Obtain daily weights Monitor I/O's daily Plan of care reviewed by Dr. May We will sign off, please call re-consult if need us Subjective Date of service: 05/31/22 Principal diagnosis: ARF, Sepsis, paroxysmal atrial fibrillation Interval history: Patient seen lying in bed. Patient awake and alert. Nurse at bedside. Objective - Vital Signs Vital signs: Vital Signs - 12hr 05/31/22 05/31/22 05/31/22 02:30 04:20 10:00 Temperature 97.7 F Pulse Rate 70 66 Respiratory 20 Rate Blood Pressure 170/72 O2 Sat by Pulse 99 94 Oximetry - General Appearance General appearance: well-developed, appears stated age EENT: ATNC, PERRL, hearing intact, vision intact Neck: no JVD, supple Respiratory: Present: Decreased Breath Sounds Cardiology: S1S2 Gastrointestinal: normoactive bowel sounds Integumentary: warm and dry Neurologic: alert and oriented x3 Musculoskeletal: joint swelling - Lab 05/31/22 08:22 05/31/22 08:22 Most recent lab results ABG pH 7.346 pH Units (7.350-7.450) L 05/24/22 10:25 ABG pCO2 24.9 mm Hg 05/24/22 10:25 ABG pO2 88.5 mm Hg (80.0-90.0) 05/24/22 10:25 ABG HCO3 13.3 mmol/L (20.0-26.0) L 05/24/22 10:25 ABG O2 Saturation 96.9 % (95.0-99.0) 05/24/22 10:25 Calcium 9.4 mg/dL (8.4-10.2) 05/31/22 08:22 Phosphorus 2.60 mg/dL (2.5-4.5) D 05/29/22 Unknown Magnesium 1.80 mg/dL (1.7-2.3) 05/29/22 Unknown Urine Creatinine 144.6 mg/dL (0.1-20.0) H 05/24/22 23:00 Urine Sodium 70 mmol/L 05/24/22 23:00 Urine Total Protein 160 mg/dL (5-11.8) H 05/24/22 23:00 Medications & Allergies - Medications Allergies/Adverse Reactions: Allergies Sulfa (Sulfonamide Antibiotics) Adverse Reaction (Verified 05/24/22 08:32) Unknown Home Medications: Home Medications Medication Instructions Recorded Confirmed Last Taken Type Benazepril HCl [Lotensin] 40 mg PO DAILY 05/27/22 05/27/22 Unknown History Metoprolol [Lopressor] 100 mg PO DAILY 05/27/22 05/27/22 Unknown History allopurinoL [Zyloprim] 100 mg PO QDAY 05/27/22 05/27/22 Unknown History Active Medications: Generic Name Dose Route Start Last Admin Trade Name Freq PRN Reason Stop Dose Admin Acetaminophen 650 mg 05/24/22 21:21 05/30/22 16:20 Acetaminophen 325 Mg Tab PO 650 mg Q4H PRN Administration Pain MILD(1-3)/Fever >100.5/KEVIN Allopurinol 100 mg 05/28/22 10:26 05/31/22 10:34 Allopurinol 100 Mg Tab PO 100 mg QDAY MADAN Administration Amiodarone HCl 200 mg 05/28/22 11:00 05/31/22 10:34 Amiodarone 200 Mg Tab PO 200 mg BID MADAN Administration Cephalexin 500 mg 05/31/22 12:00 Cephalexin 500 Mg Cap PO 06/05/22 11:59 Q6HR MADAN Protocol Dextrose 50 ml 05/27/22 12:37 Dextrose 50% In Water (25gm) 50 Ml Syringe IV Q30MIN PRN Hypoglycemia Protocol Docusate Sodium 100 mg 05/27/22 22:00 05/31/22 10:34 Docusate Sodium 100 Mg Cap PO 100 mg BID MADAN Administration Doxycycline Hyclate 100 mg 05/31/22 11:00 Doxycycline 100 Mg Cap PO 06/05/22 10:59 BID MADAN Protocol Famotidine 10 mg 05/28/22 22:17 05/31/22 10:34 Famotidine 10 Mg Tab PO 10 mg BID MADAN Administration Fluconazole 200 mg 05/29/22 11:00 05/31/22 10:33 Fluconazole 200 Mg Tab PO 06/04/22 10:01 200 mg QDAY MADAN Administration Protocol Insulin Human Lispro 0 unit 05/27/22 16:30 05/30/22 22:42 Insulin Lispro 100 Unit/Ml SUB-Q 2 unit ACHS MADAN Administration Protocol Metoclopramide HCl 5 mg 05/25/22 11:00 Metoclopramide 10 Mg/2 Ml Inj IV Q6H PRN Nausea And Vomiting Metoprolol Tartrate 25 mg 05/29/22 12:00 05/31/22 10:35 Metoprolol Tartrate 25 Mg Tab PO 25 mg BID MADAN Administration Ondansetron HCl 4 mg 05/24/22 21:21 Ondansetron 4 Mg/2 Ml Inj IV Q3H PRN Nausea And Vomiting Sodium Chloride 10 ml 05/24/22 22:00 05/30/22 22:40 Sodium Chloride 0.9% 10 Ml Flush Syringe IV 10 ml BID MADAN Administration Sodium Chloride 10 ml 05/24/22 21:21 Sodium Chloride 0.9% 10 Ml Flush Syringe IV PRN PRN LINE FLUSH
[2022-05-31] MEDS: cephALEXin 500 MG CAP PO SCH ×3 (12:48→23:11)
[2022-05-31] MEDS: DOXYCYCLINE 100 MG CAP PO SCH ×2 (12:48→22:20)
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
--- NOTE | 2022-05-31 14:37 | Progress Note ---
Assessment and Plan - Patient Problems (1) New onset atrial fibrillation Current Visit: Yes Status: Acute Plan to address problem: Patient admitted with sepsis, altered mental status and multiple metabolic derangements, she looks and feels much better. Interval finding of rapid, paroxysmal atrial fibrillation while in the CCU. Will continue rhythm control therapy with amiodarone, and oral anticoagulation with Eliquis. Subjective Date of service: 05/31/22 Principal diagnosis: ARF, Sepsis, paroxysmal atrial fibrillation Interval history: Patient is comfortable, no new cardiac complaints. On monitoring and evaluation advisor there is a stable sinus rhythm at 65. Objective Vital Signs Temp Pulse Resp BP Pulse Ox 05/31/22 11:56 98.1 F 72 18 139/68 94 05/31/22 10:00 94 05/31/22 04:20 97.7 F 66 20 170/72 99 05/31/22 02:30 70 05/31/22 00:18 98.1 F 68 20 169/68 99 05/30/22 22:41 74 154/67 05/30/22 22:20 68 05/30/22 22:00 99 05/30/22 20:12 98.1 F 74 20 154/67 97 05/30/22 19:27 83 05/30/22 16:20 20 05/30/22 15:20 97.5 F L 71 20 157/60 97 - Physical Examination General: No Apparent Distress HEENT: Positive: PERRL Neck: Positive: neck supple. Negative: JVD/HJR Cardiac: Positive: Reg Rate and Rhythm Lungs: Positive: Decreased Breath Sounds Neuro: Positive: Grossly Intact Abdomen: Positive: Soft Skin: Positive: Clear Extremities: Absent: edema - Labs and Meds CBC 05/31/22 Range/Units 08:22 WBC 16.8 H (4.5-11.0) K/mm3 RBC 3.40 L (3.65-5.03) M/mm3 Hgb 11.3 (10.1-14.3) gm/dl Hct 33.8 (30.3-42.9) % Plt Count 96 L (140-440) K/mm3 Comprehensive Metabolic Panel 05/31/22 Range/Units 08:22 Sodium 142 (137-145) mmol/L Potassium 4.8 (3.6-5.0) mmol/L Chloride 110.4 H (98-107) mmol/L Carbon Dioxide 20 L (22-30) mmol/L BUN 45 H (7-17) mg/dL Creatinine 1.0 (0.6-1.2) mg/dL Glucose 107 H (65-100) mg/dL Calcium 9.4 (8.4-10.2) mg/dL
[2022-05-31] MEDS: APIXABAN 5 MG TAB PO SCH ×2 (18:55→22:20)
[2022-06-01] MEDS: cephALEXin 500 MG CAP PO SCH ×3 (05:49→18:33)
[2022-06-01] MEDS: INSULIN LISPRO 100 UNIT/ML SUB-Q SCH ×4 (07:30→22:00)
[2022-06-01] MEDS: METOPROLOL TARTRATE 25 MG TAB PO SCH ×2 (09:10→22:00)
[2022-06-01] MEDS: APIXABAN 5 MG TAB PO SCH ×2 (09:11→22:29)
[2022-06-01] MEDS: AMIODARONE 200 MG TAB PO SCH (09:11)
[2022-06-01] MEDS: DOXYCYCLINE 100 MG CAP PO SCH ×2 (09:11→22:00)
[2022-06-01] MEDS: FAMOTIDINE 10 MG TAB PO SCH ×2 (09:11→22:28)
[2022-06-01] MEDS: DOCUSATE SODIUM 100 MG CAP PO SCH ×2 (09:11→22:29)
[2022-06-01] MEDS: allopurinoL 100 MG TAB PO SCH (09:18)
[2022-06-01] MEDS: FLUCONAZOLE 200 MG TAB PO SCH (09:18)
--- NOTE | 2022-06-01 09:19 | Progress Note ---
Assessment and Plan Severe Renal Failure secondary to pre-renal Etiology vs IATN vs advanced CKD Hypertension AMS Gout S/P Acidosis S/P Hypokalemia Plan: repeated labs yesterday showed reslved OTTO Renal ultrasound reviewed- No hydronephrosis Urine lytes reviewed. Has mild proteinuria. No urine eosinophils Avoid nephrotoxic agents Obtain daily weights Monitor I/O's daily Continue to monitor renal function will sign off. Subjective Date of service: 06/01/22 Principal diagnosis: ARF, Sepsis, paroxysmal atrial fibrillation Interval history: No overnight events Objective - Vital Signs Vital signs: Vital Signs - 12hr 05/31/22 05/31/22 05/31/22 22:00 22:15 22:20 Temperature Pulse Rate 70 Respiratory Rate Blood Pressure 172/65 O2 Sat by Pulse 97 98 Oximetry 05/31/22 06/01/22 06/01/22 23:42 00:52 03:38 Temperature 98.5 F 98.1 F Pulse Rate 61 63 61 Respiratory 19 19 Rate Blood Pressure 159/85 155/79 O2 Sat by Pulse 100 100 Oximetry 06/01/22 06/01/22 03:54 08:01 Temperature 97.5 F L Pulse Rate 63 60 Respiratory 18 Rate Blood Pressure 155/67 O2 Sat by Pulse 99 Oximetry - Lab 05/31/22 08:22 05/31/22 08:22 Most recent lab results ABG pH 7.346 pH Units (7.350-7.450) L 05/24/22 10:25 ABG pCO2 24.9 mm Hg 05/24/22 10:25 ABG pO2 88.5 mm Hg (80.0-90.0) 05/24/22 10:25 ABG HCO3 13.3 mmol/L (20.0-26.0) L 05/24/22 10:25 ABG O2 Saturation 96.9 % (95.0-99.0) 05/24/22 10:25 Calcium 9.4 mg/dL (8.4-10.2) 05/31/22 08:22 Phosphorus 2.60 mg/dL (2.5-4.5) D 05/29/22 Unknown Magnesium 1.80 mg/dL (1.7-2.3) 05/29/22 Unknown Urine Creatinine 144.6 mg/dL (0.1-20.0) H 05/24/22 23:00 Urine Sodium 70 mmol/L 05/24/22 23:00 Urine Total Protein 160 mg/dL (5-11.8) H 05/24/22 23:00 Medications & Allergies - Medications Allergies/Adverse Reactions: Allergies Sulfa (Sulfonamide Antibiotics) Adverse Reaction (Verified 05/24/22 08:32) Unknown Home Medications: Home Medications Medication Instructions Recorded Confirmed Last Taken Type allopurinoL [Zyloprim] 100 mg PO QDAY 05/27/22 05/27/22 Unknown History Amiodarone [Cordarone 200 MG TAB] 200 mg PO BID #60 tablet 05/31/22 Unknown Rx DOXYCYCLINE Hyclate [Vibramycin 100 mg PO BID #10 tab 05/31/22 Unknown Rx CAP] Docusate Sodium [Colace CAP] 100 mg PO BID #20 capsule 05/31/22 Unknown Rx Fluconazole [Diflucan TAB] 200 mg PO QDAY #5 tablet 05/31/22 Unknown Rx Metoprolol [Lopressor TAB] 50 mg PO BID #60 tablet 05/31/22 Unknown Rx cephALEXin [Keflex] 500 mg PO Q6HR #20 capsule 05/31/22 Unknown Rx Active Medications: Generic Name Dose Route Start Last Admin Trade Name Freq PRN Reason Stop Dose Admin Acetaminophen 650 mg 05/24/22 21:21 05/30/22 16:20 Acetaminophen 325 Mg Tab PO 650 mg Q4H PRN Administration Pain MILD(1-3)/Fever >100.5/KEVIN Allopurinol 100 mg 05/28/22 10:26 06/01/22 09:18 Allopurinol 100 Mg Tab PO 100 mg QDAY MADAN Administration Amiodarone HCl 200 mg 06/01/22 10:00 06/01/22 09:11 Amiodarone 200 Mg Tab PO 200 mg QDAY MADAN Administration Apixaban 5 mg 05/31/22 16:00 06/01/22 09:11 Apixaban 5 Mg Tab PO 5 mg Q12HR MADAN Administration Protocol Cephalexin 500 mg 05/31/22 12:00 06/01/22 05:49 Cephalexin 500 Mg Cap PO 06/05/22 06:01 500 mg Q6HR MADAN Administration Protocol Dextrose 50 ml 05/27/22 12:37 Dextrose 50% In Water (25gm) 50 Ml Syringe IV Q30MIN PRN Hypoglycemia Protocol Docusate Sodium 100 mg 05/27/22 22:00 06/01/22 09:11 Docusate Sodium 100 Mg Cap PO 100 mg BID MADAN Administration Doxycycline Hyclate 100 mg 05/31/22 11:00 06/01/22 09:11 Doxycycline 100 Mg Cap PO 06/04/22 22:01 100 mg BID MADAN Administration Protocol Famotidine 10 mg 05/28/22 22:17 06/01/22 09:11 Famotidine 10 Mg Tab PO 10 mg BID MADAN Administration Fluconazole 200 mg 05/29/22 11:00 06/01/22 09:18 Fluconazole 200 Mg Tab PO 06/02/22 10:01 200 mg QDAY MADAN Administration Protocol Insulin Human Lispro 0 unit 05/27/22 16:30 06/01/22 07:30 Insulin Lispro 100 Unit/Ml SUB-Q Not Given ACHS [facility] Protocol Metoclopramide HCl 5 mg 05/25/22 11:00 Metoclopramide 10 Mg/2 Ml Inj IV Q6H PRN Nausea And Vomiting Metoprolol Tartrate 25 mg 05/29/22 12:00 06/01/22 09:10 Metoprolol Tartrate 25 Mg Tab PO 25 mg BID MADAN Administration Ondansetron HCl 4 mg 05/24/22 21:21 Ondansetron 4 Mg/2 Ml Inj IV Q3H PRN Nausea And Vomiting Sodium Chloride 10 ml 05/24/22 22:00 06/01/22 09:12 Sodium Chloride 0.9% 10 Ml Flush Syringe IV 10 ml BID MADAN Administration Sodium Chloride 10 ml 05/24/22 21:21 Sodium Chloride 0.9% 10 Ml Flush Syringe IV PRN PRN LINE FLUSH
--- NOTE | 2022-06-01 11:56 | Progress Note ---
Assessment and Plan - Patient Problems (1) New onset atrial fibrillation Current Visit: Yes Status: Acute Plan to address problem: Patient admitted with sepsis, altered mental status and multiple metabolic derangements, she looks and feels much better. Interval finding of rapid, paroxysmal atrial fibrillation while in the CCU. Will continue rhythm control therapy with amiodarone, and oral anticoagulation with Eliquis. Subjective Date of service: 06/01/22 Principal diagnosis: ARF, Sepsis, paroxysmal atrial fibrillation Interval history: Patient is comfortable, no new cardiac complaints. No new cardiac events reported. Objective Vital Signs Temp Pulse Resp BP Pulse Ox 06/01/22 08:01 97.5 F L 60 18 155/67 99 06/01/22 03:54 63 06/01/22 03:38 98.1 F 61 19 155/79 100 06/01/22 00:52 63 05/31/22 23:42 98.5 F 61 19 159/85 100 05/31/22 22:20 70 172/65 05/31/22 22:15 98 05/31/22 22:00 97 05/31/22 20:40 68 05/31/22 19:40 97.9 F 70 20 172/65 97 05/31/22 14:00 78 05/31/22 11:56 98.1 F 72 18 139/68 94 - Physical Examination General: No Apparent Distress HEENT: Positive: PERRL Neck: Positive: neck supple. Negative: JVD/HJR Cardiac: Positive: Reg Rate and Rhythm Lungs: Positive: Decreased Breath Sounds Neuro: Positive: Grossly Intact Abdomen: Positive: Soft Skin: Positive: Clear Extremities: Absent: edema
[2022-06-01] MEDS: ACETAMINOPHEN 325 MG TAB PO PRN (22:40)
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
[2022-06-02] MEDS: cephALEXin 500 MG CAP PO SCH ×3 (00:18→11:21)
[2022-06-02 05:38] LABS: Hematocrit 32.1 % (30.3-42.9); Hemoglobin 10.9 gm/dl (10.1-14.3); Mean Corpuscular HGB Conc 34 % (30-34); Mean Corpuscular Volume 99 fl (79-97); Platelet Count 112 K/mm3 (140-440); Red Blood Count 3.25 M/mm3 (3.65-5.03); Red Cell Distribution Width 14.1 % (13.2-15.2)
--- NOTE | 2022-06-02 07:40 | Progress Note ---
Assessment and Plan - Patient Problems (1) New onset atrial fibrillation Current Visit: Yes Status: Acute Plan to address problem: Patient admitted with sepsis, altered mental status and multiple metabolic derangements, she looks and feels much better. Interval finding of rapid, paroxysmal atrial fibrillation while in the CCU. Now reverted back to a stable sinus rhythm on medical therapy. Will continue rhythm control therapy with amiodarone, and oral anticoagulation with Eliquis. Subjective Date of service: 06/02/22 Principal diagnosis: ARF, Sepsis, paroxysmal atrial fibrillation Interval history: Patient is comfortably no acute distress, no new cardiac events reported. Objective Vital Signs Temp Pulse Resp BP Pulse Ox 06/02/22 03:20 97.5 F L 63 20 143/66 99 06/01/22 22:40 18 06/01/22 22:20 97 06/01/22 22:00 63 143/66 99 06/01/22 21:21 97.9 F 72 19 149/73 99 06/01/22 16:24 97.4 F L 69 18 142/74 99 06/01/22 14:50 98 06/01/22 11:14 97.8 F 68 18 144/68 98 06/01/22 10:00 98 06/01/22 08:01 97.5 F L 60 18 155/67 99 - Physical Examination General: No Apparent Distress HEENT: Positive: PERRL Neck: Positive: neck supple. Negative: JVD/HJR Cardiac: Positive: Reg Rate and Rhythm Lungs: Positive: Decreased Breath Sounds Neuro: Positive: Grossly Intact Abdomen: Positive: Soft Skin: Positive: Clear Extremities: Absent: edema - Labs and Meds CBC 06/02/22 Range/Units 05:00 WBC 12.7 H (4.5-11.0) K/mm3 RBC 3.25 L (3.65-5.03) M/mm3 Hgb 10.9 (10.1-14.3) gm/dl Hct 32.1 (30.3-42.9) % Plt Count 112 L (140-440) K/mm3
[2022-06-02] MEDS: FAMOTIDINE 10 MG TAB PO SCH (09:26)
[2022-06-02] MEDS: DOXYCYCLINE 100 MG CAP PO SCH (09:26)
[2022-06-02] MEDS: INSULIN LISPRO 100 UNIT/ML SUB-Q SCH ×2 (09:26→13:30)
[2022-06-02] MEDS: AMIODARONE 200 MG TAB PO SCH (09:26)
[2022-06-02] MEDS: METOPROLOL TARTRATE 25 MG TAB PO SCH (09:27)
[2022-06-02] MEDS: allopurinoL 100 MG TAB PO SCH (09:27)
[2022-06-02] MEDS: FLUCONAZOLE 200 MG TAB PO SCH (09:27)
[2022-06-02] MEDS: DOCUSATE SODIUM 100 MG CAP PO SCH (09:27)
[2022-06-02] MEDS: APIXABAN 5 MG TAB PO SCH (09:27)
[2022-06-02] MEDS: ACETAMINOPHEN 325 MG TAB PO PRN (11:22)
[2022-06-02 13:02] VITALS: BP 152/71
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
== END 2022-06-02 13:29 | DRG 871 ==
LOC: ED 08:24 → EEVIPCON 08:24 → IMCU 14:47 → CC1 05-25 06:03 → 4A 05-28 22:15
PROVIDERS: ADMIT Internal Medicine; ATTEND Internal Medicine
PROC: 4A033R1 Measurement of Arterial Saturation, Peripheral, Percutaneous Approach (ICD-10-PCS; principal; 2022-05-24)
PROC: 06HY33Z Insertion of Infusion Device into Lower Vein, Percutaneous Approach (ICD-10-PCS; 2022-05-24)
PROC: 02HV33Z Insertion of Infusion Device into Superior Vena Cava, Percutaneous Approach (ICD-10-PCS; 2022-05-24)
DX: A41.9 Sepsis, unspecified organism (principal); G93.41 Metabolic encephalopathy; J96.01 Acute respiratory failure with hypoxia; N17.0 Acute kidney failure with tubular necrosis; R65.21 Severe sepsis with septic shock; S22.42XA Multiple fractures of ribs, left side, initial encounter for closed fracture; N39.0 Urinary tract infection, site not specified; L03.313 Cellulitis of chest wall; E44.0 Moderate protein-calorie malnutrition; Z88.2 Allergy status to sulfonamides; M10.9 Gout, unspecified; X58.XXXA Exposure to other specified factors, initial encounter; Y93.89 Activity, other specified; Y92.89 Other specified places as the place of occurrence of the external cause; Y99.8 Other external cause status; I48.91 Unspecified atrial fibrillation; N18.9 Chronic kidney disease, unspecified; E83.39 Other disorders of phosphorus metabolism; I12.9 Hypertensive chronic kidney disease with stage 1 through stage 4 chronic kidney disease, or unspecified chronic kidney disease
CPT/HCPCS: 36415; 70450; 71045; 71250; 72125; 74176; 76770; 80048; 80053; 80074; 80162; 80202; 81001; 82140; 82550; 82553; 82570; 82803; 82962; 83735; 83880; 84100; 84156; 84300; 84439; 84443; 84484; 85007; 85025; 85027; 85610; 85730; 87040; 87086; 89050; 93005; 93306; 94760; G0378; J2354; J3490; J7060; J7510; Q9967; C8929; J0282; J0692; J1160; J1170; J1644; J1815; J2060; J3370; J3475; J3480; J7030; J7040; J7050; J7070; J7120

== ENCOUNTER 2022-06-06 21:35 | Emergency (ER) | payer OTHER ==
--- NOTE | 2022-06-06 22:34 | Emergency Department Report ---
ED Female HPI - General Stated complaint: VAGINAL BLEEDING Time Seen by Provider: 06/06/22 22:28 - History of Present Illness Initial comments: 72 yo F brought in by EMS from retirement with vaginal bleeding that was noticed other inmate. Pt denies any vaginal pain or abdominal pain. She also denies any dizziness or sob or palpitation. No other modifying or associated factors. Complaint: vaginal bleeding - Related Data Home Medications Medication Instructions Recorded Confirmed Last Taken allopurinoL [Zyloprim] 100 mg PO QDAY 05/27/22 05/27/22 Unknown Previous Rx's Medication Instructions Recorded Last Taken Type Amiodarone [Cordarone 200 MG TAB] 200 mg PO BID #60 tablet 05/31/22 Unknown Rx DOXYCYCLINE Hyclate [Vibramycin 100 mg PO BID #10 tab 05/31/22 Unknown Rx CAP] Docusate Sodium [Colace CAP] 100 mg PO BID #20 capsule 05/31/22 Unknown Rx Fluconazole [Diflucan TAB] 200 mg PO QDAY #5 tablet 05/31/22 Unknown Rx Metoprolol [Lopressor TAB] 50 mg PO BID #60 tablet 05/31/22 Unknown Rx cephALEXin [Keflex] 500 mg PO Q6HR #20 capsule 05/31/22 Unknown Rx Valacyclovir HCl [Valacyclovir] 1,000 mg PO TID 7 Days #21 tab NS 06/07/22 Unknown Rx Allergies Allergy/AdvReac Type Severity Reaction Status Date / Time Sulfa (Sulfonamide AdvReac Unknown Verified 05/24/22 08:32 Antibiotics) ED Review of Systems ROS: Stated complaint: VAGINAL BLEEDING Other details as noted in HPI Comment: All other systems reviewed and negative Genitourinary: other (painless vaginal bleeding ) ED Past Medical Hx - Past Medical History Hx Hypertension: Yes Additional medical history: UNKNOWN - Social History Smoking Status: Unknown if ever smoked - Medications Home Medications: Home Medications Medication Instructions Recorded Confirmed Last Taken Type allopurinoL [Zyloprim] 100 mg PO QDAY 05/27/22 05/27/22 Unknown History Amiodarone [Cordarone 200 MG TAB] 200 mg PO BID #60 tablet 05/31/22 Unknown Rx DOXYCYCLINE Hyclate [Vibramycin 100 mg PO BID #10 tab 05/31/22 Unknown Rx CAP] Docusate Sodium [Colace CAP] 100 mg PO BID #20 capsule 09/14/22 Unknown Rx Fluconazole [Diflucan TAB] 200 mg PO QDAY #5 tablet 05/31/22 Unknown Rx Metoprolol [Lopressor TAB] 50 mg PO BID #60 tablet 05/31/22 Unknown Rx cephALEXin [Keflex] 500 mg PO Q6HR #20 capsule 05/31/22 Unknown Rx Valacyclovir HCl [Valacyclovir] 1,000 mg PO TID 7 Days #21 tab NS 06/07/22 Unknown Rx ED Physical Exam - General Limitations: No Limitations General appearance: alert, in no apparent distress - Head Head exam: Present: normal inspection - Eye Eye exam: Present: normal appearance - ENT ENT exam: Present: normal exam, normal orophraynx, mucous membranes moist - Neck Neck exam: Present: normal inspection - Respiratory Respiratory exam: Present: normal lung sounds bilaterally. Absent: respiratory distress, accessory muscle use - Cardiovascular Cardiovascular Exam: Present: regular rate, normal rhythm, normal heart sounds - GI/Abdominal GI/Abdominal exam: Present: soft, normal bowel sounds. Absent: distended, tenderness - External exam: Present: normal external exam Speculum exam: Present: vaginal bleeding. Absent: vaginal discharge, cervical discharge Bi-manual exam: Present: normal bi-manual exam. Absent: cervical motion tendernes, adnexal tenderness, uterine tenderness - Extremities Exam Extremities exam: Present: normal inspection, normal capillary refill. Absent: tenderness - Back Exam Back exam: Absent: tenderness - Neurological Exam Neurological exam: Present: alert, oriented X3 - Psychiatric Psychiatric exam: Present: normal affect - Skin Skin exam: Present: warm, normal color, rash (under bilateral breast that seems to have developed from shingles), erythema ED Course Vital Signs 06/06/22 06/06/22 06/06/22 22:28 22:31 22:37 Temperature 97.8 F Pulse Rate 61 69 Respiratory 13 10 L 16 Rate Blood Pressure Blood Pressure 90/60 [Right] O2 Sat by Pulse 99 99 Oximetry 06/06/22 06/06/22 06/06/22 22:45 22:48 23:01 Temperature Pulse Rate 128 H 103 H 84 Respiratory 15 15 12 Rate Blood Pressure 94/73 52/29 Blood Pressure [Right] O2 Sat by Pulse 98 99 87 Oximetry 06/06/22 06/06/22 06/06/22 23:15 23:31 23:45 Temperature Pulse Rate 130 H 101 H 102 H Respiratory 16 22 16 Rate Blood Pressure 94/73 115/34 90/55 Blood Pressure [Right] O2 Sat by Pulse 100 98 Oximetry 06/07/22 06/07/22 06/07/22 00:01 00:15 00:31 Temperature Pulse Rate 95 H 56 L 87 Respiratory 19 13 11 L Rate Blood Pressure 93/34 114/45 187/122 Blood Pressure [Right] O2 Sat by Pulse 95 98 100 Oximetry 06/07/22 06/07/22 06/07/22 00:46 01:00 01:15 Temperature Pulse Rate 108 H 80 64 Respiratory 14 18 12 Rate Blood Pressure 187/122 229/164 Blood Pressure [Right] O2 Sat by Pulse 98 99 100 Oximetry 06/07/22 06/07/22 06/07/22 01:30 01:46 02:00 Temperature Pulse Rate 106 H 120 H 163 H Respiratory 13 16 17 Rate Blood Pressure 162/141 229/164 140/115 Blood Pressure [Right] O2 Sat by Pulse 99 98 97 Oximetry 06/07/22 02:16 Temperature Pulse Rate 123 H Respiratory 15 Rate Blood Pressure 139/103 Blood Pressure [Right] O2 Sat by Pulse 99 Oximetry ED Medical Decision Making - Lab Data Result diagrams: 06/06/22 22:46 06/06/22 22:46 - Medical Decision Making here with vaginal bleeding considering that this is painless -- which raised concern for uterine mass or other abnormality-- will go ahead and order routine labs including CBC, CMP, UA, and Type and screen-- Noted with under bilateral breast that seems to have developed from shingles Labs reviewed and noted with anemia that is slightly lower than her baseline-- but not critical -- so patient will be asked to follow up with her [employer] Project Manager for further evaluation and treatment that likely will involve scope-- Critical care attestation.: If time is entered above; I have spent that time in minutes in the direct care of this critically ill patient, excluding procedure time. ED Disposition Clinical Impression: Vaginal bleeding, abnormal Shingles rash Qualifiers: Herpes zoster complications: unspecified herpes zoster complication Qualified Code(s): B02.8 - Zoster with other complications Disposition: 01 HOME / SELF CARE / HOMELESS Is pt being admited?: No Does the pt Need Aspirin: No Condition: Stable Instructions: Abnormal Uterine Bleeding, Shingles, [id number], Abnormal Uterine Bleeding, [id number], Dysfunctional Uterine Bleeding Additional Instructions: It is very important that you call and schedule follow-up with your CABLE [employer] INSTALLER in the next 1 to 2 weeks for further evaluation of your vagina bleeding and kenny ropriate treatment that might require endometrial scope Increase your daily fluid to help your hydration Please do not hesitate to call or return to emergency room if you develop any dizziness or chest pain that could be a complication of your bleeding. You should call or return to emergency room also if your bleeding continue or worsen for reevaluation. Take your antiviral medication as prescribed to help your rash break-up Prescriptions: Valacyclovir HCl [Valacyclovir] 1,000 mg PO TID 7 Days #21 tab NS Referrals: PRIMARY CARE, [Primary Care Provider] - 3-5 Days Time of Disposition: 03:47
[2022-06-06 23:02] LABS: Hematocrit 29.5 % (30.3-42.9); Hemoglobin 9.9 gm/dl (10.1-14.3); Mean Corpuscular HGB Conc 34 % (30-34); Mean Corpuscular Volume 99 fl (79-97); Platelet Count 129 K/mm3 (140-440); Red Blood Count 2.98 M/mm3 (3.65-5.03); Red Cell Distribution Width 14.4 % (13.2-15.2)
[2022-06-06 23:07] LABS: Basophils % (Auto) 0.4 % (0.0-1.8); Eosinophils # (Auto) 0.1 K/mm3 (0.0-0.4); Eosinophils % (Auto) 2.2 % (0.0-4.3); Lymphocytes # (Auto) 0.8 K/mm3 (1.2-5.4); Lymphocytes % (Auto) 12.5 % (13.4-35.0); Monocytes # (Auto) 0.4 K/mm3 (0.0-0.8); Monocytes % (Auto) 6.5 % (0.0-7.3)
[2022-06-06 23:09] LABS: INR 1.25 (0.87-1.13)
[2022-06-06 23:11] LABS: Partial Thromboplastin Time 34.9 Sec. (24.2-36.6)
[2022-06-06 23:29] LABS: Alanine Aminotransferase 54 units/L (7-56); Albumin 2.2 g/dL (3.9-5); BUN/Creatinine Ratio 47; Blood Urea Nitrogen 42 mg/dL (7-17); Calcium 8.9 mg/dL (8.4-10.2); Hemolysis Index 14
[2022-06-06 23:31] LABS: Free T4 (Free Thyroxine) 1.11 ng/dL (0.76-1.46)
[2022-06-06 23:41] LABS: Color,Urine Yellow (Yellow)
[2022-06-06 23:43] LABS: Granular Casts,Urine 4 /LPF; Mucus,Urine FEW /HPF
[2022-06-06 23:49] LABS: Ictotest,Urine Negative (Negative)
[2022-06-07 08:00] VITALS: BP 132/78
--- NOTE | 2022-06-07 09:34 | Electrocardiograph Report ---
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
== END 2022-06-07 08:22 | disposition home or self-care (01) ==
LOC: ED 21:35
DX: N93.9 Abnormal uterine and vaginal bleeding, unspecified (principal); B02.9 Zoster without complications; I10 Essential (primary) hypertension; Z88.2 Allergy status to sulfonamides
CPT/HCPCS: 36415; 80053; 81001; 84439; 84443; 85025; 85610; 85730; 86850; 86900; 86901; 93005; 99284